=== PATIENT | male | born 1960 | race Caucasian/White ===

== ENCOUNTER → 2020-03-29 07:05 | Outpatient (CLI) | payer OTHER, SELFPAY ==
[2020-03-29 08:12] LABS: Alanine Aminotransferase 26 IU/L (<50); Albumin 4.6 g/dL (3.5-5.0); Albumin Globulin Ratio 1.5 (1.0-2.8); Alkaline Phosphatase 93 U/L (38-126); Aspartate Aminotransferase 28 IU/L (17-59); BUN Creatinine Ratio 26.4 (6-22); Bilirubin Total 0.6 mg/dL (0.2-1.3); Blood Urea Nitrogen 24 mg/dL (9-20); Calcium 9.1 mg/dL (8.4-10.2); Carbon Dioxide 29 mmol/L (22-32); Chloride 103 mmol/L (98-107); Cholesterol 182 mg/dL (140-199); Estimated Glomerular Filt Rate > 60.0 mL/min (>60); Globulin 3.1 g/dL (1.7-4.1); Glucose 102 mg/dL (70-100); HDL Cholesterol 61 mg/dL (40-60); HEMOLYSIS < 15 (0-50); LDL Cholesterol Calculated 103 mg/dL (<100); Potassium 4.6 mmol/L (3.4-5.1); Sodium 139 mmol/L (137-145); Total Protein 7.7 g/dL (6.3-8.2); Triglycerides 88 mg/dL (35-150)
[2020-03-29 08:20] LABS: Hemoglobin A1C% w Est Avg Glu 5.5 % (4.0-6.0)
== END ==
PROVIDERS: Family Provider Family Medicine; PCP Family Medicine; Referring Provider Family Medicine; Visit Provider Family Medicine
DX: Z00.00 Encounter for general adult medical examination without abnormal findings (principal)
CPT/HCPCS: 36415; 80053; 80061; 83036

== ENCOUNTER → 2020-09-12 08:10 | Outpatient (CLI) | payer OTHER, SELFPAY ==
[2020-09-12] MEDS: COVID-19 VACC #1, MRNA(MOD) 100 MCG/0.5 ML VIAL IM (08:19)
== END ==
PROVIDERS: Family Provider Family Medicine; PCP Family Medicine; Visit Provider Internal Medicine
DX: Z23 Encounter for immunization (principal)
CPT/HCPCS: 0011A; 91301

== ENCOUNTER → 2020-10-11 07:31 | Outpatient (CLI) | payer OTHER, SELFPAY ==
[2020-10-11] MEDS: COVID-19 VACC #2, MRNA(MOD) 100 MCG/0.5 ML VIAL IM (07:42)
== END ==
PROVIDERS: Family Provider Family Medicine; PCP Family Medicine; Visit Provider Internal Medicine
DX: Z23 Encounter for immunization (principal)
CPT/HCPCS: 0012A; 91301

== ENCOUNTER → 2020-10-23 16:59 | Outpatient (CLI) | payer OTHER, SELFPAY ==
--- NOTE | 2020-10-23 17:07 | DI.RAD.S_ITS ---
PROCEDURE: XR FOOT LT MIN 3V INDICATIONS: left foot pain TECHNIQUE: 3 views of the foot were acquired. COMPARISON: None. FINDINGS: Bones: No acute fracture identified. 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 Soft tissues: No tibiotalar joint effusion. Achilles tendon appears normal. IMPRESSION: Left foot joint degeneration as above. If the patient's pain or other symptoms persist, consider further evaluation with MRI Dictated by: Hai Torres M.D. on 10/24/2020 at 10:05 Approved by: Hai Torres M.D. on 10/24/2020 at 10:07
[2020-10-23 18:10] LABS: Add Manual Diff / Slide Review NO; Basophils Absolute Auto 0 /uL (0-100); Basophils Percent Auto 0.6 % (0-2); Eosinophils Absolute Auto 100 /uL (0-450); Eosinophils Percent Auto 1.8 % (2-4); Hematocrit 46.5 % (41-53); Hemoglobin 15.8 g/dL (13.5-17.5); Lymphocytes Absolute Auto 2400 /uL (1100-4500); Lymphocytes Percent Auto 29.8 % (25-40); Mean Corpuscular HGB Conc 34.1 % (30-36); Mean Corpuscular Hemoglobin 30.5 PG (26-34); Mean Corpuscular Volume 89.5 fL (80-100); Monocytes Absolute Auto 700 /uL (0-900); Monocytes Percent Auto 8.4 % (3-14); Neutrophils Absolute Auto 4900 /uL (1500-7000); Neutrophils Percent Auto 59.4 % (50-75); Platelet Count 253 X10^3/uL (150-400); Red Blood Cell Count 5.19 X10^6/uL (4.5-5.9); Red Cell Distribution Width 13.1 % (11.6-14.8); White Blood Cell Count 8.2 X10^3/uL (4.5-11.0)
[2020-10-23 18:37] LABS: Alanine Aminotransferase 25 IU/L (<50); Albumin 4.2 g/dL (3.5-5.0); Albumin Globulin Ratio 1.4 (1.0-2.8); Alkaline Phosphatase 83 U/L (38-126); Aspartate Aminotransferase 30 IU/L (17-59); Bilirubin Total 0.4 mg/dL (0.2-1.3); Blood Urea Nitrogen 19 mg/dL (9-20); Calcium 9.2 mg/dL (8.4-10.2); Carbon Dioxide 30 mmol/L (22-32); Chloride 103 mmol/L (98-107); Estimated Glomerular Filt Rate > 60.0 mL/min (>60); Glucose 94 mg/dL (70-100); HEMOLYSIS < 15 (0-50); Potassium 4.5 mmol/L (3.4-5.1); Sodium 140 mmol/L (137-145); Total Protein 7.2 g/dL (6.3-8.2)
== END ==
PROVIDERS: Family Provider Family Medicine; PCP Family Medicine; Referring Provider Registered Nurse; Visit Provider Registered Nurse
DX: M79.672 Pain in left foot (principal); R04.0 Epistaxis; M19.072 Primary osteoarthritis, left ankle and foot
CPT/HCPCS: 36415; 73630; 80053; 85025

== ENCOUNTER → 2020-11-20 14:48 | Outpatient (CLI) | payer OTHER, SELFPAY ==
--- NOTE | 2020-11-20 14:51 | DI.RAD.S_ITS ---
PROCEDURE: XR KNEE RT 3V INDICATIONS: evaluate and treat TECHNIQUE: 3 views of the knee were acquired. COMPARISON: [facility], , KNEE 3V LEFT, 06/29/2014, 11:15. FINDINGS: Bones: No acute fracture. Scattered degenerative subchondral sclerosis and spurring. Mild narrowing of the medial and lateral joint spaces. Soft tissues: There is joint effusion. IMPRESSION: Joint effusion. If the patient's pain or other symptoms persist, consider further evaluation with MRI Mild osteoarthritis Dictated by: Hai Torres M.D. on 11/20/2020 at 16:25 Approved by: Hai Torres M.D. on 11/20/2020 at 16:26
== END ==
PROVIDERS: Family Provider Family Medicine; PCP Family Medicine; Referring Provider Family Medicine; Visit Provider Family Medicine
DX: Z00.01 Encounter for general adult medical examination with abnormal findings (principal); M25.561 Pain in right knee; M25.462 Effusion, left knee; M17.11 Unilateral primary osteoarthritis, right knee
CPT/HCPCS: 73562

== ENCOUNTER → 2020-12-11 11:31 | Outpatient (CLI) | payer OTHER, SELFPAY ==
--- NOTE | 2020-12-11 11:32 | DI.MRI.S_ITS ---
PROCEDURE: MRFOOT LT WO CON INDICATIONS: left foot and ankle pain TECHNIQUE: Noncontrast sagittal T1 spin echo and T2 fast spin echo with fat saturation, long-axis T1 spin echo and T2 fast spin echo with fat saturation, short-axis T1 spin echo and T2 fast spin echo with fat saturation through the forefoot. COMPARISON: [facility], CR, XR FOOT LT MIN 3V, 10/23/2020, 17:21. FINDINGS: Image quality: Excellent. Bones and joints: There is marrow edema involving 2nd and 3rd metatarsal shafts and bases as well as edema involving adjacent lateral cuneiform. Subtle linear hypointense signal within 2nd and 3rd metatarsal shaft in the area of edema is noted. Mild edema involving proximal shaft of 5th metatarsal bone is also seen without definite fracture line. Osteoarthritic changes are noted involving 1st MTP joint and 1st through 5th interphalangeal joints. No suspicious intraosseous lesion. Soft tissues: The visualized plantar foot muscles demonstrate normal signal and bulk. Visualized flexor and extensor tendons appear intact, without tenosynovitis. The distal insertions of the peroneus brevis and longus tendons appear intact. The principal Lisfranc ligament appears intact. No soft tissue ganglion cysts or bursal fluid collections. Sagittal images demonstrate no evidence for plantar plate tears. IMPRESSION: 1. Finding is suspicious for subtle incomplete stress fractures versus stress reaction involving 2nd and 3rd metatarsal shafts and bases as well as proximal shaft of 5th metatarsal bone as above. No displaced fracture is identified. 2. Forefoot and midfoot tendons and ligaments are grossly intact. 3. Osteoarthritic changes in forefoot joints as above. Dictated by: Ruel Ford M.D. on 12/11/2020 at 12:51 Approved by: Ruel Ford M.D. on 12/11/2020 at 13:03
== END ==
PROVIDERS: Family Provider Family Medicine; PCP Family Medicine; Referring Provider Family Medicine; Visit Provider Family Medicine
DX: M79.672 Pain in left foot (principal); M25.572 Pain in left ankle and joints of left foot; G89.29 Other chronic pain
CPT/HCPCS: 73718

== ENCOUNTER → 2022-04-15 06:57 | Outpatient (CLI) | payer OTHER, SELFPAY ==
[2022-04-15 09:20] LABS: Add Manual Diff / Slide Review NO; Basophils Absolute Auto 0 /uL (0-100); Basophils Percent Auto 0.5 % (0-2); Eosinophils Absolute Auto 100 /uL (0-450); Eosinophils Percent Auto 0.8 % (2-4); Hematocrit 47.2 % (41-53); Lymphocytes Absolute Auto 1800 /uL (1100-4500); Lymphocytes Percent Auto 24.3 % (25-40); Mean Corpuscular HGB Conc 33.8 % (30-36); Mean Corpuscular Hemoglobin 30.3 PG (26-34); Mean Corpuscular Volume 89.5 fL (80-100); Monocytes Absolute Auto 600 /uL (0-900); Monocytes Percent Auto 8.1 % (3-14); Neutrophils Absolute Auto 5000 /uL (1500-7000); Neutrophils Percent Auto 66.3 % (50-75); Platelet Count 259 X10^3/uL (150-400); Red Blood Cell Count 5.27 X10^6/uL (4.5-5.9); Red Cell Distribution Width 13.4 % (11.6-14.8); White Blood Cell Count 7.5 X10^3/uL (4.5-11.0)
[2022-04-15 09:29] LABS: Alanine Aminotransferase 33 IU/L (<50); Albumin 4.2 g/dL (3.5-5.0); Albumin Globulin Ratio 1.6 (1.0-2.8); Alkaline Phosphatase 86 U/L (38-126); Aspartate Aminotransferase 26 IU/L (17-59); BUN Creatinine Ratio 15.9 (6-22); Blood Urea Nitrogen 14 mg/dL (9-20); Calcium 8.8 mg/dL (8.4-10.2); Carbon Dioxide 27 mmol/L (22-32); Chloride 103 mmol/L (98-107); Cholesterol 178 mg/dL (140-199); Estimated Glomerular Filt Rate > 60 mL/min (>60); Globulin 2.7 g/dL (1.7-4.1); Glucose 93 mg/dL (80-110); HDL Cholesterol 60 mg/dL (40-60); HEMOLYSIS < 15 (0-50); LDL Cholesterol Calculated 92 mg/dL (<100); Sodium 138 mmol/L (137-145); Total Protein 6.9 g/dL (6.3-8.2); Triglycerides 132 mg/dL (35-150)
[2022-04-15 09:58] LABS: TSH w/ Reflex to FT4 1.66 uIU/mL (0.47-4.68)
[2022-04-15 10:45] LABS: Creatinine Urine Random 149.6 mg/dL
[2022-04-15 10:50] LABS: Microalbumi Creatinin Ratio Ur 7.3 ug/mg CR (<30); Microalbumin Urine Random 1.1 mg/dL (0-1.6)
== END ==
PROVIDERS: Family Provider Family Medicine; PCP Family Medicine; Referring Provider Family Medicine; Visit Provider Family Medicine
DX: E78.5 Hyperlipidemia, unspecified (principal); L30.9 Dermatitis, unspecified; M79.672 Pain in left foot; R03.0 Elevated blood-pressure reading, without diagnosis of hypertension
CPT/HCPCS: 36415; 80053; 80061; 82043; 82570; 84443; 85025

== ENCOUNTER → 2022-04-24 08:02 | Outpatient (CLI) | payer OTHER, SELFPAY ==
[2022-04-24 08:52] LABS: Influenza A - CEPHEID Flu A NEGATIVE (NEGATIVE); Influenza B - CEPHEID Flu B NEGATIVE (NEGATIVE); Respiratory Syncytial Virus Negative (Negative)
[2022-04-24 09:31] LABS: COVID-19 CEPHEID 4-PLEX PCR Negative (Negative)
== END ==
PROVIDERS: Family Provider Family Medicine; PCP Family Medicine; Visit Provider Nurse Practitioner Family
DX: R05.9 Cough, unspecified (principal)
CPT/HCPCS: 0241U

== ENCOUNTER → 2022-08-06 09:58 | Outpatient (CLI) | payer OTHER, SELFPAY | PROVIDERS: Family Provider Family Medicine; PCP Family Medicine; Visit Provider Physician Assistant | DX: R10.9 Unspecified abdominal pain (principal) | CPT/HCPCS: 87086 ==

== ENCOUNTER 2022-08-06 10:35 | Emergency (ER) | payer OTHER, SELFPAY ==
[2022-08-06 11:03] VITALS: BP 180/96; PULSE 61; RESP 16; TEMP 36.8; O2SAT 99; BMI 32.8
[2022-08-06 12:05] LABS: Add Manual Diff / Slide Review NO; Basophils Absolute Auto 100 /uL (0-100); Basophils Percent Auto 0.4 % (0-2); Eosinophils Absolute Auto 0 /uL (0-450); Eosinophils Percent Auto 0.3 % (2-4); Hematocrit 47.6 % (41-53); Hemoglobin 15.8 g/dL (13.5-17.5); Lymphocytes Absolute Auto 1600 /uL (1100-4500); Mean Corpuscular HGB Conc 33.3 % (30-36); Mean Corpuscular Hemoglobin 29.4 PG (26-34); Mean Corpuscular Volume 88.4 fL (80-100); Monocytes Absolute Auto 800 /uL (0-900); Monocytes Percent Auto 5.9 % (3-14); Neutrophils Absolute Auto 10900 /uL (1500-7000); Neutrophils Percent Auto 81.4 % (50-75); Platelet Count 317 X10^3/uL (150-400); Red Blood Cell Count 5.39 X10^6/uL (4.5-5.9); Red Cell Distribution Width 13.7 % (11.6-14.8); White Blood Cell Count 13.4 X10^3/uL (4.5-11.0)
[2022-08-06 12:11] LABS: Alanine Aminotransferase 29 IU/L (<50); Albumin 4.6 g/dL (3.5-5.0); Albumin Globulin Ratio 1.4 (1.0-2.8); Alkaline Phosphatase 122 U/L (38-126); Aspartate Aminotransferase 28 IU/L (17-59); Bilirubin Total 0.5 mg/dL (0.2-1.3); Blood Urea Nitrogen 13 mg/dL (9-20); Carbon Dioxide 32 mmol/L (22-32); Chloride 101 mmol/L (98-107); Estimated Glomerular Filt Rate > 60 mL/min (>60); Globulin 3.4 g/dL (1.7-4.1); Glucose 99 mg/dL (80-110); HEMOLYSIS 26 (0-50); Lipase 29 U/L (23-300); Potassium 4.2 mmol/L (3.4-5.1); Sodium 141 mmol/L (137-145)
--- NOTE | 2022-08-06 13:19 | DI.CT.S_ITS ---
PROCEDURE: CT ABDOMEN PELVIS W CON INDICATIONS: L flank pain TECHNIQUE: After the administration of intravenous contrast, axial sections acquired from the lung bases to the pubic symphysis. Coronal and sagittal reformats were performed. For radiation dose reduction, the following was used: automated exposure control, adjustment of mA and/or kV according to patient size. COMPARISON: None. FINDINGS: Image quality: Excellent. Lung bases: Unremarkable. Heart: No significant findings. ABDOMEN: Liver: Unremarkable. Gallbladder: Unremarkable. Biliary ducts: Unremarkable. Pancreas: Unremarkable. Spleen: Unremarkable. Adrenal Glands: Unremarkable. Kidneys and Ureters: Obstructing 1 centimeter stone (06/04/2007 Hounsfield unit) in the left UPJ, resulting in moderate hydronephrosis and delayed nephrogram. Additional punctate non-obstructing stone within the inferior calyx. Stomach and Bowel: Stomach, small bowel loops, and colon are unremarkable. Peritoneum: No abnormal intraperitoneal fluid. No free air. Central mesenteric fat stranding, presumably benign in the absence of adenopathy. Ventral Wall: No hernias. Abdominal Nodes: No retroperitoneal or mesenteric adenopathy by size criteria. Vessels: Aorta and inferior vena cava are normal in size. PELVIS: Pelvic Organs: Masslike enhancement of the right medial peripheral zone the prostate midgland (). Bladder: Unremarkable. Pelvic Nodes: No enlarged lymph nodes. Miscellaneous: No hernias are seen. Bones: Unremarkable. IMPRESSION: 1. Obstructing 1 centimeter stone (06/04/2007 Hounsfield unit) in the left UPJ, resulting in moderate hydronephrosis and delayed nephrogram. 2. Masslike enhancement of the right peripheral zone of the prostate. Findings can indicate prostatitis or malignancy. Correlate with PSA. If elevated, consider outpatient prostate MRI. Dictated by: Manan Dixon M.D. on 08/06/2022 at 14:27 Approved by: Manan Dixon M.D. on 08/06/2022 at 14:31
--- NOTE | 2022-08-06 13:21 | ED_ITS ---
HPI - Male Genitourinary <Ermelinda Marquez PA-C - Last Filed: 08/06/22 16:59> General Chief complaint: Urogenital-Male Stated complaint: sent by [facility] suspected kidney stone on LT side T-5 Time Seen by Provider: 08/06/22 13:08 Source: patient Mode of arrival: Ambulatory History of Present Illness HPI Narrative: 62-year-old male with no reported past medical history presents to the ED with 6 days of left-sided flank pain that is now wrapping around to the front. Patient states that the pain started 5 days ago, becoming severe today. Patient states that the pain comes in waves, he feels nauseous when the pain comes on. Denies vomiting, fever, chills. Patient states that the pain started on the left flank and is now wrapping around to the left front abdomen. Patient denies chest pain, shortness of breath, dysuria, lightheadedness, dizziness, syncope. Patient denies a history of nephrolithiasis, frequent UTIs. Patient states that he had a bad bout of gastroenteritis last week for 3 days, following which his flank pain started. Patient suspects he is very dehydrated. Patient was seen at the walk-in clinic this morning, sent to the ED for further evaluation. Related Data Previous Rx's Medication Instructions Recorded triamcinolone acetonide 0.5 % 1 applic topical BID #15 grams 11/20/20 topical cream albuterol sulfate 90 mcg/actuation 2 puff inhalation Q6H PRN 05/29/22 aerosol inhaler (Proventil HFA) shortness of breath or wheezing #8.5 grams ondansetron 4 mg disintegrating 4 mg PO Q8H PRN nausea and 08/06/22 tablet vomiting #14 tabs tamsulosin 0.4 mg capsule 0.4 mg PO BEDTIME #30 caps 08/06/22 hydrocodone 5 mg-acetaminophen 325 1 tab PO BID PRN pain #28 tabs 08/12/22 mg tablet Allergies Allergy/AdvReac Type Severity Reaction Status Date / Time No Known Drug Allergies Allergy Verified 08/08/22 14:36 Review of Systems <Ermelinda Marquez PA-C - Last Filed: 08/06/22 16:59> Review of Systems ROS Unobtainable: All systems reviewed & are unremarkable except as noted in HPI and below Constitutional Constitutional: Denies chills, Denies fatigue, Denies fever(s), Denies frequent falls, Denies lethargy and Denies weakness Eyes Eyes: Denies change in vision, Denies eye discharge, Denies irritation and Denies loss of vision ENT Ears, Nose, Mouth, and Throat: Denies change in voice, Denies dizziness, Denies neck pain, Denies sore throat and Denies throat swelling Cardiovascular Cardiovascular: Denies chest pain, Denies irregular heart rhythm, Denies lightheadedness, Denies palpitations, Denies dyspnea, Denies dyspnea on exertion and Denies orthopnea Respiratory Respiratory: Denies cough, Denies dyspnea, Denies dyspnea on exertion and Denies wheezing Gastrointestinal Gastrointestinal: Reports abdominal pain, Denies change in bowel habits, Denies diarrhea, Reports nausea and Denies vomiting Comments: L flank pain Genitourinary Genitourinary: Denies hematuria, Denies flank pain, Denies urinary incontinence and Denies urinary urgency Musculoskeletal Musculoskeletal: Denies back pain, Denies muscle weakness, Denies neck pain, Denies numbness and Denies tingling Integumentary/Breasts Skin/Breast: Denies pruritus, Denies erythema, Denies rash and Denies wounds Neurologic Neurologic: Denies behavioral changes, Denies confusion, Denies dizziness, Denies frequent falls, Denies loss of vision, Denies numbness, Denies tingling and Denies weakness Psychiatric Psychiatric: Denies anxiety, Denies behavioral changes, Denies confusion, Denies depression, Denies homicidal ideation and Denies suicidal ideation Endocrine Endocrine: Denies fatigue, Denies flushing and Denies palpitations Hematologic/Lymphatic Hematologic/Lymphatic: Denies easy bruising Allergic/Immunologic Allergic/Immunologic: Denies urticaria, Denies throat swelling and Denies wheezing Patient History <Ermelinda Marquez PA-C - Last Filed: 08/06/22 16:59> Medical History (Updated 08/08/22 @ 15:00 by LOLY Powers) Colon polyps Eczema Encounter for well adult exam with abnormal findings Hydronephrosis of left kidney Hyperlipidemia Inflamed sebaceous cyst Left foot pain Nosebleed Sebaceous cyst Surgical History Status post hernia repair Family History Grandfather Heart disease Grandfather Heart disease Grandmother Stroke Social History Smoking Status: Never smoker Smoking Status: Never smoker alcohol intake frequency: holidays/special occasions only Substance Use Type: does not use Exam <Ermelinda Marquez PA-C - Last Filed: 08/06/22 16:59> Narrative Exam Narrative: Const General:?cooperative, healthy appearing and comfortable [facility] Head:?normal to inspection Ears:?hearing grossly normal bilaterally Nose:?external nose normal Face and sinus:?normal facial exam and sinuses nontender Mouth:?oral mucosae normal Throat:?posterior oropharynx normal Eyes General:?appearance normal, both eyes and all related structures Neck Neck:?normal visual inspection and no lymphadenopathy noted Resp Effort & Inspection:?normal respiratory effort Auscultation:?clear to auscultation bilaterally Cardio Rate:?regular rate Rhythm:?regular rhythm GI Abdomen is soft, nondistended, nontender to palpation. There is no CVA tenderness. Neuro General:?patient alert, patient awake and patient oriented x3 Initial Vital Signs Initial Vital Signs: Vital Signs Temperature 98.2 F 08/06/22 11:03 Pulse Rate 61 08/06/22 11:03 Respiratory Rate 16 08/06/22 11:03 Blood Pressure 180/96 H 08/06/22 11:03 Pulse Oximetry 99 08/06/22 11:03 Oxygen Delivery Method Room Air 08/06/22 11:03 <Gopi Jordan MD - Last Filed: 08/13/22 08:11> Initial Vital Signs Initial Vital Signs: Vital Signs Temperature 98.2 F 08/06/22 11:03 Pulse Rate 61 08/06/22 11:03 Respiratory Rate 16 08/06/22 11:03 Blood Pressure 180/96 H 08/06/22 11:03 Pulse Oximetry 99 08/06/22 11:03 Oxygen Delivery Method Room Air 08/06/22 11:03 Course <Ermelinda Marquez PA-C - Last Filed: 08/06/22 16:59> Orders Ordered: Discontinued Medications Sodium Chloride (Normal Saline 0.9%) 1,000 mls @ 1,000 mls/hr IV BOLUS ONE Stop: 08/06/22 14:19 Last Infusion: 08/06/22 14:43 Dose: 0 mls/hr Documented By: Admin: 08/06/22 13:30 Dose: 1,000 mls/hr Documented By: YASIR Ketorolac Tromethamine (Ketorolac 30 Mg/Ml Vial) 15 mg IV NOW ONE Stop: 08/06/22 13:21 Last Admin: 08/06/22 13:30 Dose: 15 mg Documented By: YASIR Morphine Sulfate (Morphine 4 Mg/Ml Inj) 4 mg IV NOW ONE Stop: 08/06/22 16:30 Last Admin: 08/06/22 17:07 Dose: 4 mg Documented By: YASIR Ondansetron HCl (Ondansetron 4 Mg/2 Ml Inj) 4 mg IV NOW PRN PRN Reason: Nausea And Vomiting Ondansetron HCl (Ondansetron 4 Mg/2 Ml Inj) 4 mg IV NOW ONE Stop: 08/06/22 13:21 Last Admin: 08/06/22 13:30 Dose: 4 mg Documented By: YASIR Vital Signs Vital signs: Vital Signs - 8 hr 08/06/22 11:03 Temperature 98.2 F Pulse Rate 61 Respiratory Rate 16 Blood Pressure 180/96 H Pulse Oximetry 99 Oxygen Delivery Method Room Air <Gopi Jordan MD - Last Filed: 08/13/22 08:11> Orders Ordered: Discontinued Medications Sodium Chloride (Normal Saline 0.9%) 1,000 mls @ 1,000 mls/hr IV BOLUS ONE Stop: 08/06/22 14:19 Last Infusion: 08/06/22 14:43 Dose: 0 mls/hr Documented By: Admin: 08/06/22 13:30 Dose: 1,000 mls/hr Documented By: YASIR Ketorolac Tromethamine (Ketorolac 30 Mg/Ml Vial) 15 mg IV NOW ONE Stop: 08/06/22 13:21 Last Admin: 08/06/22 13:30 Dose: 15 mg Documented By: YASIR Morphine Sulfate (Morphine 4 Mg/Ml Inj) 4 mg IV NOW ONE Stop: 08/06/22 16:30 Last Admin: 08/06/22 17:07 Dose: 4 mg Documented By: YASIR Ondansetron HCl (Ondansetron 4 Mg/2 Ml Inj) 4 mg IV NOW PRN PRN Reason: Nausea And Vomiting Ondansetron HCl (Ondansetron 4 Mg/2 Ml Inj) 4 mg IV NOW ONE Stop: 08/06/22 13:21 Last Admin: 08/06/22 13:30 Dose: 4 mg Documented By: YASIR Vital Signs Vital signs: Vital Signs - 8 hr 08/06/22 11:03 Temperature 98.2 F Pulse Rate 61 Respiratory Rate 16 Blood Pressure 180/96 H Pulse Oximetry 99 Oxygen Delivery Method Room Air MDM - Male Genitourinary <Ermelinda aMrquez PA-C - Last Filed: 08/06/22 16:59> Lab Data 08/06/22 11:49 08/06/22 11:49 Labs: Lab Results 08/06/22 08/06/22 08/06/22 Range/Units 09:58 11:49 11:49 WBC 13.4 H (4.5-11.0) X10^3/uL RBC 5.39 (4.5-5.9) X10^6/uL Hgb 15.8 (13.5-17.5) g/dL Hct 47.6 (41-53) % MCV 88.4 (80-100) fL MCH 29.4 (26-34) PG MCHC 33.3 (30-36) % RDW 13.7 (11.6-14.8) % Plt Count 317 (150-400) X10^3/uL Neut % (Auto) 81.4 H (50-75) % Lymph % (Auto) 12.0 L (25-40) % Howard % (Auto) 5.9 (3-14) % Eos % (Auto) 0.3 L (2-4) % Baso % (Auto) 0.4 (0-2) % Neut # (Auto) 69913 H (4824-9284) /uL Lymph # (Auto) 1600 (7460-8158) /uL Howard # (Auto) 800 (0-900) /uL Eos # (Auto) 0 (0-450) /uL Baso # (Auto) 100 (0-100) /uL Sodium 141 (137-145) mmol/L Potassium 4.2 (3.4-5.1) mmol/L Chloride 101 (98-107) mmol/L Carbon Dioxide 32 (22-32) mmol/L BUN 13 (9-20) mg/dL Creatinine 0.81 (0.66-1.25) mg/dL Estimated GFR > 60 (>60) mL/min BUN/Creatinine Ratio 16.0 (6-22) Glucose 99 (80-110) mg/dL Calcium 9.0 (8.4-10.2) mg/dL Total Bilirubin 0.5 (0.2-1.3) mg/dL AST 28 (17-59) IU/L ALT 29 (<50) IU/L Alkaline Phosphatase 122 (38-126) U/L Total Protein 8.0 (6.3-8.2) g/dL Albumin 4.6 (3.5-5.0) g/dL Globulin 3.4 (1.7-4.1) g/dL Albumin/Globulin Ratio 1.4 (1.0-2.8) Lipase 29 (23-300) U/L Urine RBC 1-5/hpf (0-5/HPF) Urine WBC 1-5/hpf (0-5/HPF) Amorphous Sediment 1+ Urine Bacteria None seen (None) MDM Narrative Medical decision making narrative: 62-year-old male with no reported past medical history presents to the ED with 6 days of left-sided flank pain that is now wrapping around to the front. Concern for nephrolithiasis versus UTI versus pyelonephritis versus musculoskeletal sprain/strain versus other intra abdominal pathology versus other. Urine dip was obtained at the walk-in clinic, shows hematuria but no other acute findings. Urine was sent for culture. Will obtain labs, CT abdomen pelvis. Will treat symptoms with IV fluids, Zofran, Toradol. Will reassess. Patient's symptom improved with ketorolac, IV fluids, Zofran. UA was negative for UTI. Labs within normal limits. CT abdomen pelvis shows a 1 cm obstructing stone resulting in moderate hydronephrosis. There is also a masslike enhancement of the right peripheral zone of the prostate that could indicate prostatitis or malignancy. Discussed findings with patient. Patient agrees to follow-up with urology as soon as possible. Patient given prescriptions for tramadol, Zofran, tamsulosin. ED return precautions were discussed with patient. Patient verbalized understanding. Medical records reviewed: Yes <Gopi Jordan MD - Last Filed: 08/13/22 08:11> Lab Data Labs: Lab Results 08/06/22 08/06/22 08/06/22 Range/Units 09:58 11:49 11:49 WBC 13.4 H (4.5-11.0) X10^3/uL RBC 5.39 (4.5-5.9) X10^6/uL Hgb 15.8 (13.5-17.5) g/dL Hct 47.6 (41-53) % MCV 88.4 (80-100) fL MCH 29.4 (26-34) PG MCHC 33.3 (30-36) % RDW 13.7 (11.6-14.8) % Plt Count 317 (150-400) X10^3/uL Neut % (Auto) 81.4 H (50-75) % Lymph % (Auto) 12.0 L (25-40) % Howard % (Auto) 5.9 (3-14) % Eos % (Auto) 0.3 L (2-4) % Baso % (Auto) 0.4 (0-2) % Neut # (Auto) 68878 H (6385-8207) /uL Lymph # (Auto) 1600 (9823-3172) /uL Howard # (Auto) 800 (0-900) /uL Eos # (Auto) 0 (0-450) /uL Baso # (Auto) 100 (0-100) /uL Sodium 141 (137-145) mmol/L Potassium 4.2 (3.4-5.1) mmol/L Chloride 101 (98-107) mmol/L Carbon Dioxide 32 (22-32) mmol/L BUN 13 (9-20) mg/dL Creatinine 0.81 (0.66-1.25) mg/dL Estimated GFR > 60 (>60) mL/min BUN/Creatinine Ratio 16.0 (6-22) Glucose 99 (80-110) mg/dL Calcium 9.0 (8.4-10.2) mg/dL Total Bilirubin 0.5 (0.2-1.3) mg/dL AST 28 (17-59) IU/L ALT 29 (<50) IU/L Alkaline Phosphatase 122 (38-126) U/L Total Protein 8.0 (6.3-8.2) g/dL Albumin 4.6 (3.5-5.0) g/dL Globulin 3.4 (1.7-4.1) g/dL Albumin/Globulin Ratio 1.4 (1.0-2.8) Lipase 29 (23-300) U/L Urine RBC 1-5/hpf (0-5/HPF) Urine WBC 1-5/hpf (0-5/HPF) Amorphous Sediment 1+ Urine Bacteria None seen (None) Discharge Plan Departure Patient Disposition: Home Clinical Impression: Kidney stone Instructions: DI for Kidney Stones Activity Restrictions/Additional Instructions: You were evaluated in the ED today for left-sided flank and abdominal pain. Your labs and urine were normal. Your CT scan did show a 1 cm kidney stone that is causing your symptoms. You are being prescribed tramadol, Zofran, tamsulosin for symptoms. Please follow-up with [facility] at [phone] for further evaluation and treatment. In the meanwhile, if your symptoms worsen, you experience fever, chills, you have worsening pain and persistent vomiting, please return to the ED for further evaluation. Prescriptions: New tamsulosin 0.4 mg capsule 0.4 mg PO BEDTIME Qty: 30 0RF ondansetron 4 mg tablet,disintegrating 4 mg PO Q8H PRN (Reason: nausea and vomiting) Qty: 14 0RF No Action albuterol sulfate [Proventil HFA] 90 mcg/actuation HFA aerosol inhaler 2 puff inhalation Q6H PRN (Reason: shortness of breath or wheezing) Qty: 8.5 0RF hydrocodone-acetaminophen 5-325 mg tablet 1 tab PO BID PRN (Reason: pain) Qty: 28 0RF triamcinolone acetonide 0.5 % cream 1 applic TOP BID Qty: 15 3RF Rx Instructions: Use for up to two weeks at a time. Referrals: Melo Fox MD [Primary Care Provider] - Stand Alone Forms: Patient Portal/API <Gopi Jordan MD - Last Filed: 08/13/22 08:11> Cosign ED Attending Cosignature Attestation: I was immediately available in the department for consultation. ?This documentation has been reviewed and I agree with assessment and plan. Supervised by Gopi Jordan MD
[2022-08-06] MEDS: KETOROLAC 30 MG/ML VIAL 15 MG IV (13:30)
[2022-08-06] MEDS: SODIUM CHLORIDE 0.9% 1,000 ML 1000 ML IV (13:30)
[2022-08-06] MEDS: ONDANSETRON 4 MG/2 ML INJ IV (13:30)
[2022-08-06 15:20] LABS: Amorphous Sediment Urine 1+; Bacteria Urine None Seen; RBC Urine 1-5/HPF (0-5/HPF); WBC Urine 1-5/HPF (0-5/HPF)
[2022-08-06] MEDS: MORPHINE 4 MG/ML INJ IV (17:07)
[2022-08-06 17:22] VITALS: BP 185/91; PULSE 62; RESP 18; O2SAT 98
== END 2022-08-06 17:25 | disposition home or self-care (01) ==
PROVIDERS: Emergency Medicine; Emergency Provider Student in an Organized Health Care Education/Training Program; Family Provider Family Medicine; PCP Family Medicine
DX: N20.1 Calculus of ureter (principal); R10.9 Unspecified abdominal pain
CPT/HCPCS: 36415; 74177; 80053; 81015; 83690; 85025; 87086; 96361; 96374; 96375; 99284; J1885; J2270; J2405; Q9967

== ENCOUNTER → 2022-08-08 15:04 | Outpatient (CLI) | payer OTHER, SELFPAY ==
[2022-08-08 15:41] LABS: HEMOLYSIS < 15 (0-50)
[2022-08-08 15:48] LABS: BUN Creatinine Ratio 11.5 (6-22); Blood Urea Nitrogen 15 mg/dL (9-20); Calcium 9.1 mg/dL (8.4-10.2); Carbon Dioxide 28 mmol/L (22-32); Chloride 97 mmol/L (98-107); Estimated Glomerular Filt Rate > 60 mL/min (>60); Glucose 97 mg/dL (80-110); Potassium 4.1 mmol/L (3.4-5.1); Sodium 136 mmol/L (137-145)
[2022-08-15 17:26] LABS: Prostate Specific Antigen Scrn 2.42 ng/mL (0.1-4.0)
== END ==
PROVIDERS: Family Provider Family Medicine; PCP Family Medicine; Referring Provider Nurse Practitioner Family; Visit Provider Nurse Practitioner Family
DX: N20.0 Calculus of kidney (principal); N40.0 Benign prostatic hyperplasia without lower urinary tract symptoms; R93.89 Abnormal findings on diagnostic imaging of other specified body structures
CPT/HCPCS: 36415; 80048; G0103

== ENCOUNTER 2022-08-23 07:58 | Day surgery (SDC) | payer OTHER, SELFPAY ==
[2022-08-15 11:50] VITALS: BMI 31.9
[2022-08-23] VITALS (13 sets, daily range): BP systolic 139–192; BP diastolic 79–110; PULSE 71–88; RESP 12–20; TEMP 35.9–36.4; O2SAT 94–98; BMI 31.9
--- NOTE | 2022-08-23 | DI.RAD.S_ITS ---
PROCEDURE: XR KUB INDICATIONS: Left nephrolithiasis TECHNIQUE: One view of the abdomen acquired. COMPARISON: [facility], CT, CT ABDOMEN PELVIS W CON, 08/06/2022, 13:20. FINDINGS: Surgical changes and devices: None. Bowel: Bowel gas pattern is nonobstructive. Soft tissues: No suspicious abdominal calcifications. Visualized solid organ contours appear normal in size. There is a 1.0 cm calculus projecting slightly medial to the left renal shadow compatible with known left UPJ stone. Bones: No suspicious bony lesions. IMPRESSION: A 1.0 cm urolith noted medial to the left renal shadow compatible with previously reported obstructing left UPJ stone. Otherwise, no acute radiographic abnormalities. Dictated by: Asad Gautam M.D. on 08/23/2022 at 9:32 Approved by: Asad Gautam M.D. on 08/23/2022 at 10:05
[2022-08-23] MEDS: LACTATED RINGERS 1,000 ML 21 ML IV ×2 (08:40→10:13)
--- NOTE | 2022-08-23 08:57 | PM.PREOP ---
Pre-operative Note COVID-19 Criteria for continued procedure: Expected advancement of disease process, Possibility delay results in more complex future surgery or treatment, Continuing or worsening of significant or severe pain, Deterioration of the patient's condition or overall health, Delay expected to result in less-positive ultimate med/surg outcome and Non-surgical alternatives not available or appropriate per current SOC Interval Note History & Physical reviewed/Exam performed by Physician: Yes Changes to H&P: No
[2022-08-23] MEDS: CEFAZOLIN 2 GM/100 ML PREMIX 100 ML IV (09:25)
--- NOTE | 2022-08-23 10:00 | SUR.OPER ---
Lithotomy on ESWL bed, head on pillow, arms at sides. Legs secured in ESWL padded fins stirrups. Legs released from lithotomy after stent placement and returned to supine on ESWL table with arms at side.
--- NOTE | 2022-08-23 10:30 | PM.OP.1 ---
Operative Date/Time/Diagnoses Date of procedure: 08/23/22 Time of procedure: 10:20 Pre-op diagnosis: 1. Left ureteropelvic junction calculus. 2. Left renal colic Post-op diagnosis: same Procedure & Clinicians Procedure: 1. Cystoscopy/left ureteral stone manipulation without removal. 2. Cystoscopy/placement left ureteral stent (7 [place] by 22-32 cm). 3. Left extracorporeal shockwave lithotripsy (maximal power level 7.0 x 1500 shocks). Same procedure as scheduled: Yes Indications: 1. Urethra-normal caliber without annular stricture or lesion. 2. External sphincter-coapted with normal overlying urothelium. 3. Prostate 4+ cm length with [id number] lateral lobe hyperplasia and elevated median bar. 4. Bladder 1+ trabeculation. Normal ureteral orifices bilaterally. No evidence of stone, neoplasm, or diverticulum. 5. Index calculus was unchanged in position compared to preoperative imaging. With positioning of the guidewire and advancement of the stent the stone was repositioned retrograde within the dilated left renal pelvis. Surgeon: Maki Quiroz Click Yes if Unassisted: Yes Anesthesia Type: General Operative Notes Closure Type: not applicable Specimen(s): none sent Applied: other (Seven [place] by 22-32 cm multi length stent.) Estimated Blood Loss (mL): 0 Blood products transfused: none Procedure in detail: The patient was positioned in supine and was administered general anesthesia. The patient was then repositioned in semi lithotomy in the lower abdomen, genitalia, and groin were then prepped and draped in sterile fashion. The 22 [place] samaniego endoscope was then passed in the lower urinary tract with the findings as described above. A 0.35 hybrid guidewire was then advanced through the working channel of the cystoscope and advanced into the left collecting system under direct and fluoroscopic guidance. A 7 [place] by 22-32 cm multi-length stent was then selected and this too was advanced under direct and fluoroscopic guidance into the left collecting system over the hybrid guidewire. In doing so the index calculus that had been positioned snugly in the left ureteropelvic junction was dislodged and repositioned retrograde within dilated left renal pelvis. NO RETRIEVAL LINE WAS LEFT ATTACHED. The bladder was then drained completely and the samaniego endoscope was removed. The patient was then repositioned in supine and the index calculus was localized in the X, Y, and Z plane. Lithotripsy was then commenced at minimal power level for 200 shocks after which a 2 minute pause was conducted. Lithotripsy was then resumed and the power level gradually increased to a maximum of 7.0. The stone and its fragments were localized as needed throughout the treatment process. At 3:00 p.m. shocks there was excellent radiographic evidence of stone comminution. The patient was then awakened, transferred to [facility], and then transferred to recovery in stable condition. Complications: none Post-operative Condition: stable Disposition: PACU Plan for aftercare: Discharge home.
[2022-08-23] MEDS: HYDRALAZINE 20 MG/ML VIAL 10 MG IV (11:03)
--- NOTE | 2022-08-23 11:15 | SUR.PHASEII ---
pt positioned on Right side head down per MD orders
--- NOTE | 2022-08-23 14:19 | SUR.PHASEII ---
Pt started on incentive spirometry prior to discharge. Pt able to get up to 2600 cc. Pt BP at preop baseline. Instructed to get in contact with Dr Fox for BP management.
== END 2022-08-23 11:46 | disposition home or self-care (01) ==
PROVIDERS: Family Provider Family Medicine; PCP Family Medicine; Referring Provider Specialist; Visit Provider Specialist
PROC: (CPT 50590; principal; 2022-08-23 09:15)
PROC: (CPT 52356; 2022-08-23 09:15)
DX: N20.1 Calculus of ureter (principal); Z46.6 Encounter for fitting and adjustment of urinary device; N40.0 Benign prostatic hyperplasia without lower urinary tract symptoms
CPT/HCPCS: 52356; 74018; J0330; J0360; J0690; J1100; J2405; J2704; J3010

== ENCOUNTER → 2022-08-29 15:54 | Outpatient (CLI) | payer OTHER, SELFPAY ==
[2022-08-29 16:21] LABS: Appearance Urine UA SL CLOUDY; Bilirubin Urine UA NEGATIVE (NEGATIVE); Color Urine UA YELLOW; Glucose Urine UA NEGATIVE (Negative); Ketones Urine UA NEGATIVE (NEGATIVE); Leukocyte Esterase Urine UA TRACE (NEGATIVE); Nitrite Urine UA NEGATIVE (Negative); Occult Blood Urine UA 3+ (Negative); Protein Urine UA NEGATIVE (Negative); Specific Gravity Urine UA 1.015 (1.000-1.035); Urobilinogen Urine UA 0.2 E.U./dL (0.2); pH Urine UA 5.5 (4.5-8.0)
[2022-08-29 16:38] LABS: Amorphous Sediment Urine 1+; Bacteria Urine Few (2-10); Culture Indicated Urine Specimen Cultured; Mucus Urine 1+ (Negative); RBC Urine 1-5/HPF (0-5/HPF); Squamous Epithelial Cell Urine 1-5 /HPF (0-5/HPF); WBC Urine 5-10/HPF (0-5/HPF)
== END ==
PROVIDERS: Family Provider Family Medicine; PCP Family Medicine; Referring Provider Specialist; Visit Provider Specialist
DX: N20.1 Calculus of ureter (principal)
CPT/HCPCS: 81001; 87086

== ENCOUNTER → 2022-09-10 08:29 | Outpatient (CLI) | payer OTHER, SELFPAY ==
--- NOTE | 2022-09-10 08:30 | DI.RAD.S_ITS ---
PROCEDURE: XR KUB INDICATIONS: ureter calculus TECHNIQUE: One view of the abdomen acquired. COMPARISON: [facility], CR, XR KUB, 08/23/2022, 8:05. FINDINGS: Surgical changes and devices: Left ureteral stent appears to be in appropriate position. Bowel: Bowel gas pattern is normal. Soft tissues: Interval fragmentation of the stone just medial and inferior to the left kidney, aggregate measurement is 1.2 x 0.9 cm. Pelvic calcifications likely phleboliths. Bones: No suspicious bony lesions. IMPRESSION: Left ureteral stent in place. Calcification medial and inferior to the left kidney, likely previously seen stone, now fragmented, measures 1.2 x 0.9 cm in aggregate. Dictated by: Joss West M.D. on 09/10/2022 at 8:46 Approved by: Joss West M.D. on 09/10/2022 at 8:48
== END ==
PROVIDERS: Family Provider Family Medicine; PCP Family Medicine; Referring Provider Specialist; Visit Provider Specialist
DX: N20.1 Calculus of ureter (principal); Z96.0 Presence of urogenital implants; Z87.442 Personal history of urinary calculi
CPT/HCPCS: 52310; 74018; 81002; 99214

== ENCOUNTER → 2022-09-23 10:24 | Outpatient (CLI) | payer OTHER, SELFPAY ==
[2022-09-27 15:08] LABS: Ca oxalate dihydrate 10 % (.); Ca oxalate monohydr 90 % (.); Size 4x4 mm (.)
== END ==
PROVIDERS: Family Provider Family Medicine; PCP Family Medicine; Visit Provider Specialist
DX: N13.30 Unspecified hydronephrosis (principal); N20.0 Calculus of kidney; N20.1 Calculus of ureter; N23 Unspecified renal colic
CPT/HCPCS: 82365

== ENCOUNTER → 2022-09-27 11:13 | Outpatient (CLI) | payer OTHER, SELFPAY ==
[2022-09-27 13:16] LABS: Appearance Urine UA CLEAR; Bilirubin Urine UA NEGATIVE (NEGATIVE); Color Urine UA YELLOW; Glucose Urine UA NEGATIVE (Negative); Ketones Urine UA NEGATIVE (NEGATIVE); Leukocyte Esterase Urine UA NEGATIVE (NEGATIVE); Nitrite Urine UA NEGATIVE (Negative); Occult Blood Urine UA NEGATIVE (Negative); Protein Urine UA NEGATIVE (Negative); Urobilinogen Urine UA 0.2 E.U./dL (0.2); pH Urine UA 6.5 (4.5-8.0)
[2022-09-27 13:47] LABS: Amorphous Sediment Urine 1+; Bacteria Urine None Seen; Culture Indicated Urine Cult Not Indicated; RBC Urine None Seen (0-5/HPF); Squamous Epithelial Cell Urine 0-1 /HPF (0-5/HPF); WBC Urine 0-1/HPF (0-5/HPF)
== END ==
PROVIDERS: Family Provider Family Medicine; PCP Family Medicine; Referring Provider Specialist; Visit Provider Specialist
DX: N20.1 Calculus of ureter (principal)
CPT/HCPCS: 81001

== ENCOUNTER → 2022-10-17 07:39 | Outpatient (CLI) | payer OTHER, SELFPAY ==
--- NOTE | 2022-10-17 07:44 | DI.RAD.S_ITS ---
PROCEDURE: XR KUB INDICATIONS: ureter calculus TECHNIQUE: One view of the abdomen acquired. COMPARISON: [facility], CT, CT ABDOMEN PELVIS W CON, 08/06/2022, 13:20. [facility], CR, XR KUB, 09/10/2022, 8:26. [facility], CR, XR KUB, 08/23/2022, 8:05. FINDINGS: Interval removal of the left ureteral stent. Similar appearance of calcification projecting over the left inferior kidney, approximately 8 mm. Nonobstructive bowel gas pattern. IMPRESSION: Interval removal of the left ureteral stent. Similar appearance of calcification projecting over the left inferior kidney, approximately 8 mm. Dictated by: Ronaldo Dennison M.D. on 10/17/2022 at 8:39 Approved by: Ronaldo Dennison M.D. on 10/17/2022 at 8:44
[2022-10-17 08:57] LABS: Uric Acid 6.5 mg/dL (3.5-8.5)
[2022-10-17 09:07] LABS: Alanine Aminotransferase 30 IU/L (<50); Albumin Globulin Ratio 1.4 (1.0-2.8); Alkaline Phosphatase 110 U/L (38-126); Aspartate Aminotransferase 26 IU/L (17-59); BUN Creatinine Ratio 22.9 (6-22); Bilirubin Total 0.9 mg/dL (0.2-1.3); Blood Urea Nitrogen 19 mg/dL (9-20); Calcium 8.9 mg/dL (8.4-10.2); Carbon Dioxide 25 mmol/L (22-32); Chloride 103 mmol/L (98-107); Estimated Glomerular Filt Rate > 60 mL/min (>60); Globulin 2.8 g/dL (1.7-4.1); Glucose 98 mg/dL (80-110); HEMOLYSIS < 15 (0-50); Potassium 3.8 mmol/L (3.4-5.1); Sodium 136 mmol/L (137-145); Total Protein 6.8 g/dL (6.3-8.2)
[2022-10-17 10:15] LABS: Creatinine Urine Random 136.4 mg/dL
[2022-10-17 10:18] LABS: Microalbumi Creatinin Ratio Ur 5.1 ug/mg CR (<30); Microalbumin Urine Random 0.7 mg/dL (0-1.6)
[2022-10-18 10:56] LABS: Parathyroid Hormone Int 54 pg/mL (15-65)
== END ==
PROVIDERS: Family Provider Family Medicine; PCP Family Medicine; Referring Provider Specialist; Visit Provider Specialist
DX: N13.30 Unspecified hydronephrosis (principal); N20.1 Calculus of ureter; E78.5 Hyperlipidemia, unspecified; I10 Essential (primary) hypertension; N20.0 Calculus of kidney
CPT/HCPCS: 74018; 80053; 82043; 82570; 83970; 84550

== ENCOUNTER 2022-11-18 11:01 | Day surgery (SDC) | payer OTHER, SELFPAY ==
[2022-11-13 13:52] VITALS: BMI 31.9
--- NOTE | 2022-11-18 | DI.RAD.S_ITS ---
PROCEDURE: XR KUB INDICATIONS: Left nephrolithiasis TECHNIQUE: One view of the abdomen acquired. COMPARISON: [facility], CT, CT ABDOMEN PELVIS W CON, 08/06/2022, 13:20. [facility], CR, XR KUB, 10/17/2022, 7:42. [facility], CR, XR KUB, 09/10/2022, 8:26. [facility], CR, XR KUB, 08/23/2022, 8:05. FINDINGS: Surgical changes and devices: None. Bowel: Bowel gas pattern is normal. Soft tissues: A 3 mm calcification is seen projecting over the left mid abdomen in the region of the inferior pole left kidney, which appears decreased in size when compared to the radiographs from 10/17/2022. No definite right abdominal calcification is seen. Visualized solid organ contours appear normal in size. Bones: No suspicious bony lesions. Bulky osteophyte formation noted at the lumbosacral junction. IMPRESSION: A 3 mm calcification projects over the left kidney. Previously seen larger renal calculus is not definitely visualized. Approved by: Ronaldo Palmer M.D. on 11/18/2022 at 13:59
[2022-11-18 11:20] VITALS: BP 146/77; PULSE 58; RESP 18; TEMP 36.4; O2SAT 99; BMI 31.9
[2022-11-18] MEDS: LACTATED RINGERS 1,000 ML 21 ML IV (11:35)
--- NOTE | 2022-11-18 12:47 | PM.PREOP ---
Pre-operative Note COVID-19 Criteria for continued procedure: Expected advancement of disease process, Possibility delay results in more complex future surgery or treatment, Deterioration of the patient's condition or overall health, Delay expected to result in less-positive ultimate med/surg outcome and Non-surgical alternatives not available or appropriate per current SOC Interval Note History & Physical reviewed/Exam performed by Physician: Yes Changes to H&P: No
--- NOTE | 2022-11-18 13:33 | SUR.OPER ---
Addendum entered by Elizabeth Reid R.N. 11/18/22 14:38: Supine on ESWL table, head on pillow, legs uncrossed, arms padded, heedls padded, foam triangle under legs provided by ESW[employer] rep. Original Note: Supine on ESWL table, head on pillow, arms secured on padded arm boards at <90 degrees abduction, legs uncrossed, safety belt at thigh, tape over blanket over lower legs.
--- NOTE | 2022-11-18 13:58 | PM.OP.1 ---
Operative Date/Time/Diagnoses Date of procedure: 11/18/22 Time of procedure: 13:45 Pre-op diagnosis: 1. Left nephrolithiasis 2. History of left renal colic Post-op diagnosis: same Procedure & Clinicians Procedure: 1. Left extracorporeal shockwave lithotripsy (maximal power level 7.5 times 1500 shocks). Same procedure as scheduled: Yes Indications: 1. Left nephrolithiasis. 2. History of left renal colic. Surgeon: Maki Quiroz Click Yes if Unassisted: Yes Anesthesia Type: General Operative Notes Findings: Index calculus unchanged in position left lobe and compared to preoperative imaging. Specimen(s): none sent Estimated Blood Loss (mL): 0 Blood products transfused: none Procedure in detail: Patient was positioned supine in the above-described calculus was localized in the X, Y, an Z plane. Treatment was then begun at minimal power level for 200 shocks. A 2 minute pause was conducted. Lithotripsy was then resumed and the power was gradually increased to a maximum 7.5. The stone and its fragments were relocalized periodically throughout the case I as needed with fluoroscopy. At 1500 shocks there was excellent evidence of stone comminution and no residual sizable fragments. The patient was then awakened, transferred to [facility], and then trip for recovery in stable condition. Complications: none Post-operative Condition: stable Disposition: PACU Plan for aftercare: Discharge home.
[2022-11-18 14:00] VITALS: BP 151/90; PULSE 58; RESP 11; TEMP 36.3; O2SAT 97
[2022-11-18 14:05] VITALS: BP 138/76; PULSE 53; RESP 12; TEMP 36.3; O2SAT 98
[2022-11-18 14:11] VITALS: BP 148/83; PULSE 52; RESP 12; O2SAT 98
[2022-11-18 14:16] VITALS: BP 150/81; PULSE 54; RESP 14; TEMP 36.4; O2SAT 98
[2022-11-18 14:21] VITALS: BP 151/79; PULSE 53; RESP 14; O2SAT 98
[2022-11-18] MEDS: FUROSEMIDE 40 MG/4 ML VIAL 20 MG IV (14:30)
== END 2022-11-18 14:33 | disposition home or self-care (01) ==
PROVIDERS: Family Provider Family Medicine; PCP Family Medicine; Referring Provider Specialist; Visit Provider Specialist
PROC: (CPT 50590; principal; 2022-11-18 12:45)
DX: N20.0 Calculus of kidney (principal)
CPT/HCPCS: 50590; 74018; J1940; J2405; J3010

== ENCOUNTER → 2023-01-01 09:59 | Outpatient (CLI) | payer OTHER, SELFPAY ==
--- NOTE | 2023-01-01 10:00 | DI.RAD.S_ITS ---
PROCEDURE: XR KUB INDICATIONS: History of Kidney stones TECHNIQUE: One view of the abdomen acquired. COMPARISON: [facility], CR, XR KUB, 11/18/2022, 11:08. [facility], CR, XR KUB, 10/17/2022, 7:42. FINDINGS: No definite renal stones identified radiographically. No pathologically dilated gas-filled loops of bowel. IMPRESSION: No definite renal stones identified radiographically. Dictated by: Ronaldo Dennison M.D. on 01/01/2023 at 18:13 Approved by: Ronaldo Dennison M.D. on 01/01/2023 at 18:15
== END ==
PROVIDERS: Family Provider Family Medicine; PCP Family Medicine; Referring Provider Specialist; Visit Provider Specialist
DX: N20.2 Calculus of kidney with calculus of ureter (principal); N23 Unspecified renal colic; Z87.442 Personal history of urinary calculi
CPT/HCPCS: 74018

== ENCOUNTER → 2023-01-02 07:56 | Outpatient (CLI) | payer OTHER, SELFPAY ==
[2023-01-08 18:47] LABS: Ca oxalate monohydr 100 % (.); Size 3x3 mm (.)
== END ==
PROVIDERS: Family Provider Family Medicine; PCP Family Medicine; Visit Provider Specialist
DX: N20.0 Calculus of kidney (principal); N40.1 Benign prostatic hyperplasia with lower urinary tract symptoms; N13.8 Other obstructive and reflux uropathy; Z87.442 Personal history of urinary calculi
CPT/HCPCS: 81002; 82365

== ENCOUNTER 2023-03-25 07:02 | Day surgery (SDC) | payer OTHER, SELFPAY ==
[2023-03-25 07:25] VITALS: BP 144/85; PULSE 67; RESP 16; TEMP 36.3; O2SAT 98; BMI 31.4
[2023-03-25] MEDS: LACTATED RINGERS 1,000 ML 150 ML IV (07:38)
--- NOTE | 2023-03-25 08:15 | PM.HP.1 ---
History of Present Illness History of Present Illness Date Patient Seen: 03/25/23 Time Patient Seen: 08:15 Chief complaint: Colonoscopy Narrative: 62-year-old male here for screening colonoscopy. Personal history of colonic polyps last colonoscopy 11 years ago. No abdominal concerns today including pain unintentional weight loss blood per rectum. No family history of intestinal malignancy. [facility] Medical History BPH w urinary obs/LUTS Left nephrolithiasis Hypertension History of nephrolithiasis Renal colic on left side Obstruction of left ureteropelvic junction (UPJ) due to stone Hydronephrosis of left kidney Colon polyps Left foot pain Nosebleed Inflamed sebaceous cyst Eczema Hyperlipidemia Sebaceous cyst Encounter for well adult exam with abnormal findings Surgical History History of urologic surgery (08/23/22) History of orthopedic surgery (06/27/22) History of back surgery Status post hernia repair Family History Grandfather Heart disease Grandfather Heart disease Cancer Diabetes mellitus Grandmother Stroke Father Diabetes mellitus Hx of migraines Social History marital status: number of children: 4 household members: spouse Smoking Status: Never smoker alcohol intake: current Meds Home Medications and Allergies Home Medications Medication Instructions Recorded Confirmed Type losartan 100 mg tablet 100 mg PO DAILY #90 tabs 09/17/22 03/25/23 Rx tamsulosin 0.4 mg capsule 0.4 mg PO BEDTIME #180 caps 09/25/22 03/25/23 Rx Allergies Allergy/AdvReac Type Severity Reaction Status Date / Time No Known Drug Allergies Allergy Verified 01/02/23 07:50 Exam Vital Signs (past 8 hours): - 03/25/23 07:25 Temperature 97.4 F L Pulse Rate 67 Respiratory Rate 16 Blood Pressure 144/85 H Pulse Oximetry 98 Oxygen Delivery Method Room Air Oxygen Delivery Method Room Air Narrative Exam Narrative: General adult man alert oriented no acute distress Chest nonlabored respiration Extremities warm well perfused Assessment & Plan Assessment & Plan narrative: The patient requires colorectal screening and colonoscopy is recommended. Technical details were discussed. Risks, benefits, alternatives explained. Risks including but not limited to myocardial infarction, aspiration, bleeding, pain, missed lesion, incomplete examination, need for further radiographic studies, colonic perforation, and need for major abdominal surgery were discussed. All questions were answered to their satisfaction, and they are in agreement with this plan.
--- NOTE | 2023-03-25 08:17 | PM.OP.COLON ---
Procedure & Clinicians Study performed: Colonoscopy Same procedure as scheduled: Yes Indications: Colorectal screening Surgeon: Stevie Segura Procedure Notes Procedure in detail: The history and physical was performed/updated and the patient is ASA class is 2. The procedure was discussed in detail with the patient. Potential risks complications including infection, bleeding, missed diagnosis, perforation, need for surgery, and were explained. Their questions were answered and informed consent was obtained. Patient was brought to the procedure room and placed standard monitoring equipment. The patient's vital signs were monitored continuously throughout the entire procedure. Prior to starting time-out was performed. The patient was placed in the left lateral recumbent position. Procedural sedation was administered by anesthesia. Examination began with a thorough inspection of the perianal area there was no evidence of fissures, fistulae, external hemorrhoids or cutaneous malignancy. The colonoscopy scope was then placed into the anal canal and was advanced to the cecum, which was identified by the ileocecal valve, the appendiceal orifice and the confluence of the taenia. The scope was then slowly withdrawn examining colon thoroughly in all directions, irrigating it of any residual stool. The scope was retroflexed within the rectum The patient tolerated the procedure well. They will be discharged once criteria are met. The prep was of good/excellent quality. The withdrawl time was 7 minutes. FINDINGS -No polyps -Sigmoid diverticulosis Specimen(s): none sent Impression: Normal colonoscopy Post-procedure Recommendations: Colonoscopy in 10 years Disposition: same day surgery
[2023-03-25 08:39] VITALS: BP 97/64; PULSE 59; RESP 17; TEMP 36.3; O2SAT 95
[2023-03-25 08:44] VITALS: BP 95/67; PULSE 57; RESP 13; O2SAT 95
[2023-03-25 08:49] VITALS: BP 109/66; PULSE 61; RESP 15; TEMP 36.3; O2SAT 98
[2023-03-25 08:54] VITALS: BP 107/72; PULSE 59; RESP 13; O2SAT 97
== END 2023-03-25 09:09 | disposition home or self-care (01) ==
PROVIDERS: Family Provider Family Medicine; PCP Family Medicine; Referring Provider Surgery; Visit Provider Surgery
PROC: 0DJD8ZZ Inspection of Lower Intestinal Tract, Via Natural or Artificial Opening Endoscopic (ICD-10-PCS; CPT 45378; principal; 2023-03-25 08:30)
DX: Z12.11 Encounter for screening for malignant neoplasm of colon (principal); K57.30 Diverticulosis of large intestine without perforation or abscess without bleeding
CPT/HCPCS: 45378; J2704

== ENCOUNTER → 2023-04-02 11:57 | Outpatient (CLI) | payer OTHER, SELFPAY ==
[2023-04-02 13:57] LABS: Prostate Specific Antigen 2.24 ng/mL (0.10-4.00)
== END ==
PROVIDERS: Family Provider Family Medicine; PCP Family Medicine; Referring Provider Specialist; Visit Provider Specialist
DX: N40.1 Benign prostatic hyperplasia with lower urinary tract symptoms (principal); N13.8 Other obstructive and reflux uropathy
CPT/HCPCS: 36415; 84153

== ENCOUNTER → 2023-04-06 13:54 | Outpatient (CLI) | payer OTHER, SELFPAY ==
--- NOTE | 2023-04-06 13:55 | DI.RAD.S_ITS ---
PROCEDURE: XR ANKLE LT MIN 3V INDICATIONS: Anterior ankle pain TECHNIQUE: 3 views of the ankle were acquired. COMPARISON: [facility], CR, XR ANKLE 1 OR 2 VIEWS LEFT, 03/21/2022, 10:47. [facility], CR, XR FOOT 3+ VIEWS LEFT, 07/24/2022, 9:12. FINDINGS: Bones: No fractures or dislocations. Ankle mortise is normally aligned. No suspicious bony lesions. The talar dome demonstrates no vesna abnormality. Postoperative change of the distal 2nd metatarsal can be seen. Soft tissues: No tibiotalar joint effusion. Achilles tendon appears normal. IMPRESSION: No significant ankle plain film abnormality is seen. Prior postoperative change of the distal 2nd metatarsal. Dictated by: Rj Villalba M.D. on 04/06/2023 at 13:19 Approved by: Rj Villalba M.D. on 04/06/2023 at 13:21
== END ==
PROVIDERS: Family Provider Family Medicine; PCP Family Medicine; Referring Provider Urology; Visit Provider Urology
DX: M25.572 Pain in left ankle and joints of left foot (principal)
CPT/HCPCS: 73610

== ENCOUNTER → 2023-06-18 07:52 | Outpatient (CLI) | payer OTHER, SELFPAY ==
--- NOTE | 2023-06-18 07:54 | DI.RAD.S_ITS ---
PROCEDURE: XR KNEE RT 3V INDICATIONS: Chronic right knee pain TECHNIQUE: 3 views of the knee were acquired. COMPARISON: [facility], , XR KNEE RT 3V, 11/20/2020, 15:16. [facility], , KNEE 3V LEFT, 06/29/2014, 11:15. FINDINGS: Bones: No fractures or dislocations. No suspicious bony lesions. Tricompartmental joint space narrowing with associated osteophytosis. Soft tissues: Moderate joint effusion. No suspicious soft tissue calcifications. IMPRESSION: [id number] tricompartmental osteoarthritis. Kellgren-Maximilian Grade 2. Moderate knee joint effusion. Dictated by: Manan Dixon M.D. on 06/18/2023 at 10:24 Approved by: Manan Dixon M.D. on 06/18/2023 at 10:26
== END ==
LOC: RAD 07:53
PROVIDERS: Family Provider Family Medicine; PCP Family Medicine; Referring Provider Family Medicine; Visit Provider Family Medicine
DX: M17.11 Unilateral primary osteoarthritis, right knee (principal); M25.461 Effusion, right knee; M25.561 Pain in right knee; G89.29 Other chronic pain
CPT/HCPCS: 73562

== ENCOUNTER → 2023-06-26 07:14 | Outpatient (CLI) | payer OTHER, SELFPAY ==
[2023-06-26 07:47] LABS: Add Manual Diff / Slide Review NO; Basophils Absolute Auto 0 /uL (0-100); Basophils Percent Auto 0.4 % (0-2); Eosinophils Absolute Auto 100 /uL (0-450); Eosinophils Percent Auto 1.4 % (2-4); Hematocrit 44.6 % (41-53); Hemoglobin 15.2 g/dL (13.5-17.5); Lymphocytes Absolute Auto 1600 /uL (1100-4500); Lymphocytes Percent Auto 20.5 % (25-40); Mean Corpuscular HGB Conc 34.2 % (30-36); Mean Corpuscular Hemoglobin 30.5 PG (26-34); Mean Corpuscular Volume 89.3 fL (80-100); Monocytes Absolute Auto 900 /uL (0-900); Monocytes Percent Auto 11.6 % (3-14); Neutrophils Absolute Auto 5300 /uL (1500-7000); Neutrophils Percent Auto 66.1 % (50-75); Platelet Count 239 X10^3/uL (150-400); Red Blood Cell Count 4.99 X10^6/uL (4.5-5.9); Red Cell Distribution Width 13.6 % (11.6-14.8); White Blood Cell Count 8.1 X10^3/uL (4.5-11.0)
[2023-06-26 08:13] LABS: Alanine Aminotransferase 29 IU/L (<50); Albumin 3.9 g/dL (3.5-5.0); Albumin Globulin Ratio 1.3 (1.0-2.8); Alkaline Phosphatase 95 U/L (38-126); Aspartate Aminotransferase 27 IU/L (17-59); BUN Creatinine Ratio 19.5 (6-22); Bilirubin Total 0.9 mg/dL (0.2-1.3); Blood Urea Nitrogen 17 mg/dL (9-20); Calcium 9.1 mg/dL (8.4-10.2); Carbon Dioxide 27 mmol/L (22-32); Chloride 104 mmol/L (98-107); Cholesterol 140 mg/dL (140-199); Estimated Glomerular Filt Rate > 60 mL/min (>60); Glucose 102 mg/dL (80-110); HDL Cholesterol 62 mg/dL (40-60); HEMOLYSIS < 15 (0-50); LDL Cholesterol Calculated 61 mg/dL (<100); Potassium 4.1 mmol/L (3.4-5.1); Sodium 138 mmol/L (137-145); Total Protein 6.9 g/dL (6.3-8.2); Triglycerides 87 mg/dL (35-150)
[2023-06-26 08:26] LABS: Creatinine Urine Random 130.5 mg/dL
[2023-06-26 08:32] LABS: Microalbumi Creatinin Ratio Ur 5.3 ug/mg CR (<30); Microalbumin Urine Random 0.7 mg/dL (0-1.6)
== END ==
PROVIDERS: Family Provider Family Medicine; PCP Family Medicine; Referring Provider Family Medicine; Visit Provider Family Medicine
DX: N20.0 Calculus of kidney (principal); I10 Essential (primary) hypertension; Z87.442 Personal history of urinary calculi; B07.9 Viral wart, unspecified; Z00.01 Encounter for general adult medical examination with abnormal findings; E78.5 Hyperlipidemia, unspecified
CPT/HCPCS: 36415; 80053; 80061; 82043; 82570; 85025

== ENCOUNTER → 2023-07-04 15:45 | Outpatient (CLI) | payer OTHER, SELFPAY ==
--- NOTE | 2023-07-04 15:46 | DI.MRI.S_ITS ---
PROCEDURE: MR KNEE RT WO CON INDICATIONS: acute on chronic right knee pain/swelling on XR TECHNIQUE: Noncontrast sagittal PD fast spin echo and T2 fast spin echo with fat saturation, sagittal 3-D FLASH with fat saturation; coronal T1 spin echo and PD fast spin echo with fat saturation, and axial PD fast spin echo with fat saturation through the knee. COMPARISON: [facility], MR, KNEE WITHOUT CONTRAST, 09/15/2014, 8:53. FINDINGS: Image quality: Excellent. Menisci: There is peripheral displacement of medial meniscus bowing medial collateral ligament. Complex tear involving body and posterior horn of medial meniscus is seen extending to both superior and inferior articulating surfaces. The lateral meniscus is intact. The meniscal root ligaments appear intact. Cruciate ligaments: The anterior cruciate ligament is markedly thickened with intrasubstance T2 hyperintense signal near its femoral insertion. The posterior cruciate ligament is intact. Medial structures: The medial collateral ligament appears mildly thickened with surrounding soft tissue edema. Visualized portions of the pes anserinus tendons appear normal. No abnormal bursal fluid. Lateral structures: The lateral collateral ligament, long and short heads of the biceps femoris tendon appear intact. The popliteus tendon appears normal. Iliotibial band appears normal. Anterior structures: The quadriceps tendon is intact. Proximal patellar tendinosis at its inferior patellar insertion is seen. Patellar alignment is normal. No edema in the infrapatellar fat pad. Bones and cartilage: Moderate to severe tricompartmental osteoarthritis and chondromalacia is seen most notably in medial femoral tibial compartment with near complete loss of joint space, extensive subchondral sclerosis and marginal osteophyte formation. Marrow edema in medial femoral tibial compartment is seen without discrete fracture line. Joint space: There is moderate joint effusion, no gross loose bodies.. No Mckeon's cyst. Normal appearing synovial plicae are incidentally noted. IMPRESSION: 1. Moderate to severe tricompartmental osteoarthritis and chondromalacia most notably in medial femoral tibial compartment. No fracture or dislocation. Moderate joint effusion, no gross loose bodies. 2. Chronic appearing complex tear involving body and posterior horn of medial meniscus extending to both superior and inferior articulating surfaces. The lateral meniscus is intact. 3. Moderate grade intrasubstance partial-thickness tear involving anterior cruciate ligament. No ACL rupture. The PCL is intact. 4. Low-grade proximal MCL sprain. 5. Proximal patella tendinosis. Dictated by: Ruel Ford M.D. on 07/04/2023 at 21:00 Approved by: Ruel Ford M.D. on 07/04/2023 at 21:05
== END ==
PROVIDERS: Family Provider Family Medicine; PCP Family Medicine; Referring Provider Family Medicine; Visit Provider Family Medicine
DX: S83.231A Complex tear of medial meniscus, current injury, right knee, initial encounter (principal); S83.511A Sprain of anterior cruciate ligament of right knee, initial encounter; S83.411A Sprain of medial collateral ligament of right knee, initial encounter; M25.561 Pain in right knee; M25.461 Effusion, right knee; G89.29 Other chronic pain; M17.11 Unilateral primary osteoarthritis, right knee; M94.261 Chondromalacia, right knee
CPT/HCPCS: 73721

== ENCOUNTER 2023-09-29 18:01 | Emergency (ER) | payer OTHER, SELFPAY ==
[2023-09-29 18:18] VITALS: BP 152/87; PULSE 110; RESP 20; TEMP 38.8; O2SAT 95; BMI 32.1
--- NOTE | 2023-09-29 18:26 | DI.RAD.S_ITS ---
PROCEDURE: XR CHEST 1V INDICATIONS: cough TECHNIQUE: One view of the chest was acquired. COMPARISON: [facility], , CHEST 2 VIEW, 05/17/2008, 12:45. FINDINGS: Surgical changes and devices: None. Lungs and pleura: Low lung volumes. Mild peribronchial cuffing. No dense airspace disease or pleural effusion Mediastinum: Heart size is at the upper limit of normal Bones and chest wall: Degenerative changes IMPRESSION: Mild peribronchial cuffing, possibly viral infection or bronchitis. No airspace disease or pleural effusions. Limited single view radiograph with low lung volumes. Dictated by: Joss West M.D. on 09/29/2023 at 19:03 Approved by: Joss West M.D. on 09/29/2023 at 19:04
[2023-09-29] MEDS: SODIUM CHLORIDE 0.9% FLUSH 10 ML IV (18:54)
[2023-09-29] MEDS: ACETAMINOPHEN 325 MG TABLET 650 MG PO (18:54)
[2023-09-29 19:01] LABS: Add Manual Diff / Slide Review NO; Basophils Absolute Auto 0 /uL (0-100); Basophils Percent Auto 0.4 % (0-2); Eosinophils Absolute Auto 0 /uL (0-450); Eosinophils Percent Auto 0.3 % (2-4); Hemoglobin 15.4 g/dL (13.5-17.5); Lymphocytes Absolute Auto 1400 /uL (1100-4500); Lymphocytes Percent Auto 13.5 % (25-40); Mean Corpuscular HGB Conc 34.1 % (30-36); Mean Corpuscular Hemoglobin 30.2 PG (26-34); Mean Corpuscular Volume 88.5 fL (80-100); Monocytes Absolute Auto 1000 /uL (0-900); Neutrophils Absolute Auto 7800 /uL (1500-7000); Neutrophils Percent Auto 75.8 % (50-75); Platelet Count 208 X10^3/uL (150-400); Red Blood Cell Count 5.09 X10^6/uL (4.5-5.9); Red Cell Distribution Width 13.9 % (11.6-14.8); White Blood Cell Count 10.2 X10^3/uL (4.5-11.0)
[2023-09-29 19:19] LABS: BUN Creatinine Ratio 21.1 (6-22); Blood Urea Nitrogen 19 mg/dL (9-20); Carbon Dioxide 25 mmol/L (22-32); Chloride 106 mmol/L (98-107); Estimated Glomerular Filt Rate > 60 mL/min (>60); Glucose 93 mg/dL (80-110); HEMOLYSIS 33 (0-50); Potassium 3.9 mmol/L (3.4-5.1); Sodium 137 mmol/L (137-145)
[2023-09-29 19:30] LABS: Adenovirus Not Detected (Not Detect); B. parapertussis Not Detected (Not Detecte); Bordetella pertussis Not Detected (Not Detect); Chlamydophila pneumoniae Not Detected (Not Detect); Coronavirus 229E Not Detected (Not Detect); Coronavirus HKU1 Not Detected (Not Detect); Coronavirus NL 63 Not Detected (Not Detect); Coronavirus OC43 Not Detected (Not Detect); Human Metapneumovirus Detected (Not Detect); Human Rhinovirus/Enterovirus Not Detected (Not Detect); Influenza A Not Detected (Not Detect); Influenza B Not Detected (Not Detect); Mycoplasma pneumoniae Not Detected (Not Detect); Parainfluenza Virus 1 Not Detected (Not Detect); Parainfluenza Virus 2 Not Detected (Not Detect); Parainfluenza Virus 3 Not Detected (Not Detect); Parainfluenza Virus 4 Not Detected (Not Detect); Respiratory Syncytial Virus Not Detected (Not Detect); SARS- CoV-2 Not Detected (Not Detecte)
[2023-09-29 19:51] VITALS: PULSE 95; O2SAT 97
--- NOTE | 2023-09-29 19:52 | ED.GENADULT ---
HPI - General Adult General Chief complaint: Shortness of Breath/Dyspnea Stated complaint: 7-8 weeks respiratory issues, getting worse Time Seen by Provider: 09/29/23 18:25 Source: patient Mode of arrival: Ambulatory History of Present Illness HPI narrative: Patient is a 63-year-old male is here for evaluation approximately 8 weeks of cough and congestion. He states it initially started as nasal congestion and upper respiratory symptoms. He went to the walk-in clinic. Was told to take nasal sprays and decongestants which he has been doing. Now he is having chest congestion and cough and chest discomfort from the cough. He went back to the walk-in clinic and was told to come to the emergency department for further evaluation. No vomiting. No skin changes. No lower extremity swelling. Related Data Previous Rx's Medication Instructions Recorded tamsulosin 0.4 mg capsule 0.8 mg (2 x 0.4 mg) PO BEDTIME 04/09/23 #180 caps bupropion HCl 150 mg 24 hr tablet, 150 mg PO QAM #90 tabs 05/29/23 extended release (Wellbutrin XL) losartan 100 mg tablet 100 mg PO DAILY #90 tabs 07/01/23 fluticasone propionate 50 1 spray intranasal Q12H #16 grams 09/11/23 mcg/actuation nasal spray,suspension (Flonase Allergy Relief) benzonatate 100 mg capsule 100 mg PO BID-TID PRN cough #20 09/29/23 caps Allergies Allergy/AdvReac Type Severity Reaction Status Date / Time No Known Drug Allergies Allergy Verified 09/11/23 16:22 Review of Systems Review of Systems Narrative: See HPI Patient History Medical History Left nephrolithiasis BPH w urinary obs/LUTS Hypertension History of nephrolithiasis Renal colic on left side Obstruction of left ureteropelvic junction (UPJ) due to stone Hydronephrosis of left kidney Colon polyps Left foot pain Nosebleed Inflamed sebaceous cyst Eczema Hyperlipidemia Sebaceous cyst Encounter for well adult exam with abnormal findings Surgical History History of urologic surgery (08/23/22) History of orthopedic surgery (06/27/22) History of back surgery Status post hernia repair Family History Grandfather Heart disease Grandfather Heart disease Cancer Diabetes mellitus Grandmother Stroke Father Diabetes mellitus Hx of migraines Social History marital status: number of children: 4 household members: spouse Smoking Status: Never smoker alcohol intake: current Smoking Status: Never smoker alcohol intake frequency: holidays/special occasions only Substance Use Type: does not use Exam Initial Vital Signs Initial Vital Signs: Vital Signs Temperature 101.8 F H 09/29/23 18:18 Pulse Rate 110 H 09/29/23 18:18 Respiratory Rate 20 09/29/23 18:18 Blood Pressure 152/87 H 09/29/23 18:18 Pulse Oximetry 95 09/29/23 18:18 Oxygen Delivery Method Room Air 09/29/23 18:18 HENMT Head: normal to inspection and normocephalic Resp Effort & Inspection: normal respiratory effort Auscultation: clear to auscultation bilaterally Cardio Rate: regular rate Rhythm: regular rhythm Neuro General: patient alert and patient awake Extrem General: No edema Course Orders Ordered: ED Orders 09/29/23 18:26 XR chest 1V Stat EKG-12 Lead Stat 09/29/23 18:33 Respiratory Panel (Film Array) Stat 09/29/23 18:56 Basic Metabolic Panel Stat Complete Blood Count AUTO DIFF Stat Discontinued Medications Acetaminophen (Acetaminophen 325 Mg Tablet) 650 mg PO NOW ONE Stop: 09/29/23 18:30 Last Admin: 09/29/23 18:54 Dose: 650 mg Documented By: PARDEEP Benzonatate (Benzonatate 100 Mg Capsule) 100 mg PO NOW ONE Stop: 09/29/23 20:22 Last Admin: 09/29/23 20:25 Dose: 100 mg Documented By: PARDEEP Sodium Chloride (Sodium Chloride 0.9% Flush) 10 ml IV BID SUKHJINDER Sodium Chloride (Sodium Chloride 0.9% Flush) 10 ml IV PRN PRN PRN Reason: Flush Last Admin: 09/29/23 18:54 Dose: 10 ml Documented By: PARDEEP Vital Signs Vital signs: Vital Signs - 8 hr 09/29/23 18:18 09/29/23 19:51 09/29/23 20:00 Temperature 101.8 F H Pulse Rate 110 H 95 H 94 H Respiratory Rate 20 Blood Pressure 152/87 H Pulse Oximetry 95 97 96 Oxygen Delivery Method Room Air 09/29/23 20:11 09/29/23 20:11 09/29/23 20:33 Temperature 99.2 F 99.2 F Pulse Rate 91 H Respiratory Rate Blood Pressure 135/86 Pulse Oximetry 96 Oxygen Delivery Method Room Air Medical Decision Making Lab Data Lab results reviewed: Yes I reviewed the patient's lab results. 09/29/23 18:56 09/29/23 18:56 Labs: Lab Results 09/29/23 09/29/23 Range/Units 18:33 18:56 WBC 10.2 (4.5-11.0) X10^3/uL RBC 5.09 (4.5-5.9) X10^6/uL Hgb 15.4 (13.5-17.5) g/dL Hct 45.0 (41-53) % MCV 88.5 (80-100) fL MCH 30.2 (26-34) PG MCHC 34.1 (30-36) % RDW 13.9 (11.6-14.8) % Plt Count 208 (150-400) X10^3/uL Neut % (Auto) 75.8 H (50-75) % Lymph % (Auto) 13.5 L (25-40) % [place] % (Auto) 10.0 (3-14) % Eos % (Auto) 0.3 L (2-4) % Baso % (Auto) 0.4 (0-2) % Neut # (Auto) 7800 H (7477-9260) /uL Lymph # (Auto) 1400 (4381-5540) /uL [place] # (Auto) 1000 H (0-900) /uL Eos # (Auto) 0 (0-450) /uL Baso # (Auto) 0 (0-100) /uL Sodium 137 (137-145) mmol/L Potassium 3.9 (3.4-5.1) mmol/L Chloride 106 (98-107) mmol/L Carbon Dioxide 25 (22-32) mmol/L BUN 19 (9-20) mg/dL Creatinine 0.90 (0.66-1.25) mg/dL Estimated GFR > 60 (>60) mL/min BUN/Creatinine Ratio 21.1 (6-22) Glucose 93 (80-110) mg/dL Calcium 9.0 (8.4-10.2) mg/dL Chlamy pneumoniae PCR Not detected (Not Detect) Adenovirus (PCR) Not detected (Not Detect) B.parapertussis DNA PCR Not detected (Not Detecte) Coronavirus OC43 (PCR) Not detected (Not Detect) Coronavirus HKU1 (PCR) Not detected (Not Detect) Coronavirus 229E (PCR) Not detected (Not Detect) SARS-CoV-2 (PCR) Not detected (Not Detecte) Coronavirus NL63 (PCR) Not detected (Not Detect) Human Metapneumovir PCR Detected H (Not Detect) Influenza Type A (PCR) Not detected (Not Detect) Influenza Type B (PCR) Not detected (Not Detect) M. pneumoniae (PCR) Not detected (Not Detect) Parainfluenza 1 (PCR) Not detected (Not Detect) Parainfluenza 2 (PCR) Not detected (Not Detect) Parainfluenza 3 (PCR) Not detected (Not Detect) Parainfluenza 4 (PCR) Not detected (Not Detect) RSV (PCR) Not detected (Not Detect) Entero/Rhino (PCR) Not detected (Not Detect) Imaging Data Chest x-ray: Radiologist's Impression: PROCEDURE: XR CHEST 1V INDICATIONS: cough TECHNIQUE: One view of the chest was acquired. COMPARISON: [facility], CHEST 2 VIEW, 05/17/2008, 12:45. FINDINGS: Surgical changes and devices: None. Lungs and pleura: Low lung volumes. Mild peribronchial cuffing. No dense airspace disease or pleural effusion Mediastinum: Heart size is at the upper limit of normal Bones and chest wall: Degenerative changes IMPRESSION: Mild peribronchial cuffing, possibly viral infection or bronchitis. No airspace disease or pleural effusions. Limited single view radiograph with low lung volumes. ECG Data Attestation: I personally reviewed and interpreted this ECG as follows: Interpretation: Sinus rhythm Ventricular rate 91 LVH Normal QRS No ST T wave changes MDM Narrative Medical decision making narrative: Chest x-ray shows no signs of consolidation and more consistent with a viral infection. Is positive for human metapneumovirus which certainly explains his presenting symptoms today. Is well hydrated. Tolerating oral intake. We did discuss things that the patient could try at home to help with the symptoms. Will send home with a prescription for benzoate. We discussed his diagnosis. Discussed return precautions. He expressed understanding and agreement. Discharge Plan Departure Patient Disposition: Home Clinical Impression: Human metapneumovirus pneumonia Instructions: Human Metapneumovirus Infection Activity Restrictions/Additional Instructions: You can take Tylenol for any fevers. Use the the Tessalon Perles/benzoate for cough. Contact your primary doctor for follow-up. Return to the emergency department for new symptoms. Prescriptions: New benzonatate 100 mg capsule 100 mg PO BID-TID PRN (Reason: cough) Qty: 20 0RF No Action fluticasone propionate [Flonase Allergy Relief] 50 mcg/actuation spray,suspension 1 spray intranasal Q12H Qty: 16 0RF Rx Instructions: administer into each nostril bupropion HCl [Wellbutrin XL] 150 mg tablet extended release 24 hr 150 mg PO QAM Qty: 90 1RF losartan 100 mg tablet 100 mg PO DAILY Qty: 90 1RF tamsulosin 0.4 mg capsule 0.8 mg PO BEDTIME Qty: 180 3RF Referrals: Melo Fox MD [Primary Care Provider] - Stand Alone Forms: Patient Portal/API
[2023-09-29 20:00] VITALS: PULSE 94; O2SAT 96
[2023-09-29 20:11] VITALS: BP 135/86; PULSE 91; TEMP 37.3; O2SAT 96
[2023-09-29] MEDS: BENZONATATE 100 MG CAPSULE PO (20:25)
[2023-09-29 20:33] VITALS: TEMP 37.3
== END 2023-09-29 20:32 | disposition home or self-care (01) ==
PROVIDERS: Emergency Provider Emergency Medicine; Family Provider Family Medicine; PCP Family Medicine
DX: J18.9 Pneumonia, unspecified organism (principal); B97.81 Human metapneumovirus as the cause of diseases classified elsewhere; R03.0 Elevated blood-pressure reading, without diagnosis of hypertension
CPT/HCPCS: 36415; 71045; 80048; 85025; 87633; 93005; 99284

== ENCOUNTER → 2023-11-04 12:40 | Outpatient (CLI) | payer OTHER, SELFPAY ==
--- NOTE | 2023-11-04 12:40 | DI.RAD.S_ITS ---
PROCEDURE: XR CERVICAL SPINE 4V OR 5V INDICATIONS: Right sided neck pain; numbness/tingling RMF TECHNIQUE: 5 views of the cervical spine acquired. COMPARISON: None. FINDINGS: Bones: No fractures or dislocations to the T1 level. Uncovertebral hypertrophy and moderate degenerative disc disease at C5-C6. Mild bilateral facet arthropathy at C5-C6. Oblique images demonstrate moderate right and mild left bony foraminal stenoses at C5-C6. Soft tissues: No prevertebral soft tissue swelling. IMPRESSION: 1. Degenerative disc and facet disease at C5-C6. There is moderate foraminal stenosis at C5-C6 on the right. In this patient with radiculopathy symptoms, MRI is recommended for further evaluation. Dictated by: Virginia Ingram M.D. on 11/05/2023 at 8:40 Approved by: Virginia Ingram M.D. on 11/05/2023 at 8:41
== END ==
PROVIDERS: Family Provider Family Medicine; PCP Family Medicine; Referring Provider Physician Assistant; Visit Provider Physician Assistant
DX: M50.122 Cervical disc disorder at C5-C6 level with radiculopathy (principal); M47.22 Other spondylosis with radiculopathy, cervical region; M48.02 Spinal stenosis, cervical region
CPT/HCPCS: 72050

== ENCOUNTER → 2024-05-31 06:18 | Outpatient (CLI) | payer OTHER, SELFPAY ==
[2024-05-31 08:38] LABS: Prostate Specific Antigen 2.18 ng/mL (0.10-4.00)
== END ==
PROVIDERS: Family Provider Family Medicine; PCP Family Medicine; Referring Provider Urology; Visit Provider Urology
DX: R97.20 Elevated prostate specific antigen [PSA] (principal)
CPT/HCPCS: 36415; 84153

== ENCOUNTER → 2024-10-08 06:38 | Outpatient (CLI) | payer OTHER, SELFPAY ==
[2024-10-08 07:59] LABS: Add Manual Diff / Slide Review NO; Basophils Absolute Auto 0 /uL (0-100); Basophils Percent Auto 0.5 % (0-2); Eosinophils Absolute Auto 100 /uL (0-450); Eosinophils Percent Auto 1.6 % (2-4); Hematocrit 47.4 % (41-53); Hemoglobin 16.1 g/dL (13.5-17.5); Lymphocytes Absolute Auto 1900 /uL (1100-4500); Lymphocytes Percent Auto 27.8 % (25-40); Mean Corpuscular Hemoglobin 30.9 PG (26-34); Mean Corpuscular Volume 91.1 fL (80-100); Monocytes Absolute Auto 600 /uL (0-900); Monocytes Percent Auto 8.5 % (3-14); Neutrophils Absolute Auto 4300 /uL (1500-7000); Neutrophils Percent Auto 61.6 % (50-75); Platelet Count 251 X10^3/uL (150-400); Red Cell Distribution Width 13.4 % (11.6-14.8); White Blood Cell Count 6.9 X10^3/uL (4.5-11.0)
[2024-10-08 08:47] LABS: Alanine Aminotransferase 27 IU/L (<50); Albumin 4.2 g/dL (3.5-5.0); Albumin Globulin Ratio 1.7 (1.0-2.8); Alkaline Phosphatase 91 U/L (38-126); Aspartate Aminotransferase 28 IU/L (17-59); BUN Creatinine Ratio 22.8 (6-22); Bilirubin Total 0.6 mg/dL (0.2-1.3); Blood Urea Nitrogen 21 mg/dL (9-20); Carbon Dioxide 30 mmol/L (22-32); Chloride 105 mmol/L (98-107); Cholesterol 144 mg/dL (140-199); Estimated Glomerular Filt Rate > 60 mL/min (>60); Globulin 2.5 g/dL (1.7-4.1); Glucose 94 mg/dL (70-99); HDL Cholesterol 57 mg/dL (40-60); HEMOLYSIS < 15 (0-50); LDL Cholesterol Calculated 74 mg/dL (<100); Potassium 4.5 mmol/L (3.4-5.1); Sodium 140 mmol/L (137-145); Total Protein 6.7 g/dL (6.3-8.2); Triglycerides 66 mg/dL (35-150)
[2024-10-08 09:11] LABS: TSH w/ Reflex to FT4 1.65 uIU/mL (0.47-4.68)
[2024-10-08 09:13] LABS: Prostate Specific Antigen Scrn 3.84 ng/mL (0.1-4.0)
[2024-10-08 10:01] LABS: Creatinine Urine Random 180.06 mg/dL
[2024-10-08 10:05] LABS: Microalbumin Urine Random 1.2 mg/dL (0-1.6)
[2024-10-09 07:40] LABS: Apolipoprotein B 56 mg/dL (<90)
== END ==
PROVIDERS: Family Provider Family Medicine; PCP Family Medicine; Referring Provider Family Medicine; Visit Provider Family Medicine
DX: Z12.5 Encounter for screening for malignant neoplasm of prostate (principal); N32.81 Overactive bladder; N40.1 Benign prostatic hyperplasia with lower urinary tract symptoms; N13.8 Other obstructive and reflux uropathy; I10 Essential (primary) hypertension
CPT/HCPCS: 36415; 80053; 80061; 82043; 82172; 82570; 84443; 85025; G0103

== ENCOUNTER → 2024-10-08 14:37 | Outpatient (CLI) | payer OTHER, SELFPAY ==
--- NOTE | 2024-10-08 15:59 | EKG_ITS ---
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
[2024-10-08 16:37] LABS: Appearance Urine UA CLEAR; Bilirubin Urine UA NEGATIVE (NEGATIVE); Color Urine UA YELLOW; Glucose Urine UA NEGATIVE (Negative); Ketones Urine UA NEGATIVE (NEGATIVE); Leukocyte Esterase Urine UA NEGATIVE (NEGATIVE); Nitrite Urine UA NEGATIVE (Negative); Occult Blood Urine UA NEGATIVE (Negative); Protein Urine UA NEGATIVE (Negative); Specific Gravity Urine UA >=1.030 (1.000-1.035); Urobilinogen Urine UA 0.2 E.U./dL (0.2); pH Urine UA 5.5 (4.5-8.0)
[2024-10-08 16:46] LABS: Bacteria Urine Few (2-10); Culture Indicated Urine Cult Not Indicated; Mucus Urine 1+ (Negative); RBC Urine None Seen (0-5/HPF); Squamous Epithelial Cell Urine 0-1 /HPF (0-5/HPF); Urine Volume 10mL (spun); WBC Urine 0-1/HPF (0-5/HPF)
[2024-10-08 17:08] LABS: Add Manual Diff / Slide Review NO; Basophils Absolute Auto 0 /uL (0-100); Basophils Percent Auto 0.3 % (0-2); Eosinophils Absolute Auto 100 /uL (0-450); Eosinophils Percent Auto 1.2 % (2-4); Hematocrit 46.2 % (41-53); Hemoglobin 15.8 g/dL (13.5-17.5); Lymphocytes Absolute Auto 2300 /uL (1100-4500); Lymphocytes Percent Auto 21.1 % (25-40); Mean Corpuscular HGB Conc 34.3 % (30-36); Mean Corpuscular Hemoglobin 31.2 PG (26-34); Mean Corpuscular Volume 91.1 fL (80-100); Monocytes Absolute Auto 800 /uL (0-900); Monocytes Percent Auto 7.8 % (3-14); Neutrophils Absolute Auto 7500 /uL (1500-7000); Neutrophils Percent Auto 69.6 % (50-75); Platelet Count 246 X10^3/uL (150-400); Red Blood Cell Count 5.07 X10^6/uL (4.5-5.9); Red Cell Distribution Width 13.5 % (11.6-14.8); White Blood Cell Count 10.7 X10^3/uL (4.5-11.0)
[2024-10-08 17:23] LABS: BUN Creatinine Ratio 23.7 (6-22); Blood Urea Nitrogen 23 mg/dL (9-20); Calcium 9.2 mg/dL (8.4-10.2); Carbon Dioxide 26 mmol/L (22-32); Chloride 106 mmol/L (98-107); Estimated Glomerular Filt Rate > 60 mL/min (>60); Glucose 85 mg/dL (70-99); HEMOLYSIS < 15 (0-50); Potassium 4.3 mmol/L (3.4-5.1); Sodium 139 mmol/L (137-145)
== END ==
PROVIDERS: Family Provider Family Medicine; PCP Family Medicine; Referring Provider Family Medicine; Visit Provider Family Medicine
DX: Z01.818 Encounter for other preprocedural examination (principal); Z01.812 Encounter for preprocedural laboratory examination; N39.0 Urinary tract infection, site not specified
CPT/HCPCS: 36415; 80048; 80053; 80061; 81001; 82043; 82172; 82570; 84443; 85025; 93005; 93010; G0103

== ENCOUNTER 2024-10-11 16:48 | Emergency (ER) | payer OTHER, SELFPAY ==
[2024-10-11 16:50] VITALS: BP 142/75; PULSE 68; RESP 18; TEMP 36.6; O2SAT 97; BMI 32.1
[2024-10-11] MEDS: LIDOCAINE 5% PATCH 1 EACH TOP (18:03)
[2024-10-11 18:10] VITALS: BP 132/67; PULSE 56; RESP 18; TEMP 36.6; O2SAT 99
--- NOTE | 2024-10-11 18:56 | ED_ITS ---
HPI - Extremity Injury (Lower) <Ermelinda Marquez PA-C - Last Filed: 10/11/24 19:01> General Chief Complaint: Extremity Injury, Lower Stated Complaint: left leg px, sent by [facility] r/u blood clot Time Seen by Provider: 10/11/24 17:11 History of Present Illness HPI Narrative: 64-year-old male presents to the ED with a left calf injury sustained earlier this morning. Patient was attempting to get his metal robot into his trailer, when he felt a pop in his left calf which has been painful since then when he walks. Patient states that it is only painful when he walks. Patient does endorse full range of motion with his knee. No numbness, tingling, weakness. Related Data Previous Rx's Medication Instructions Recorded naproxen 500 mg tablet 500 mg PO BID PRN pain #40 tabs 02/25/24 tamsulosin 0.4 mg capsule 0.8 mg (2 x 0.4 mg) PO BEDTIME 05/21/24 #180 caps mirabegron 50 mg tablet,extended 50 mg PO DAILY #90 tabs 08/12/24 release 24 hr bupropion HCl 150 mg 24 hr tablet, See Rx Instructions PO QAM #180 08/26/24 extended release (Wellbutrin XL) tabs losartan 100 mg tablet 100 mg PO DAILY #90 tabs 10/14/24 Allergies Allergy/AdvReac Type Severity Reaction Status Date / Time No Known Drug Allergies Allergy Verified 10/14/24 15:19 Review of Systems <Ermelinda Marquez PA-C - Last Filed: 10/11/24 19:01> Constitutional Constitutional: Denies chills, Denies fatigue, Denies fever(s), Denies frequent falls, Denies lethargy and Denies weakness Eyes Eyes: Denies change in vision, Denies eye discharge, Denies irritation and Denies loss of vision ENT Ears, Nose, Mouth, and Throat: Denies change in voice, Denies dizziness, Denies neck pain, Denies sore throat and Denies throat swelling Cardiovascular Cardiovascular: Denies chest pain, Denies irregular heart rhythm, Denies lightheadedness, Denies palpitations, Denies dyspnea, Denies dyspnea on exertion and Denies orthopnea Respiratory Respiratory: Denies cough, Denies dyspnea, Denies dyspnea on exertion and Denies wheezing Gastrointestinal Gastrointestinal: Denies abdominal pain, Denies change in bowel habits, Denies diarrhea, Denies nausea and Denies vomiting Musculoskeletal Musculoskeletal: Denies neck pain and Denies numbness Comments: Left calf pain Integumentary/Breasts Skin/Breast: Denies pruritus, Denies erythema, Denies rash and Denies wounds Neurologic Neurologic: Denies behavioral changes, Denies confusion, Denies dizziness, Denies frequent falls, Denies loss of vision, Denies numbness and Denies weakness Psychiatric Psychiatric: Denies anxiety, Denies behavioral changes, Denies confusion, Denies depression, Denies homicidal ideation and Denies suicidal ideation Endocrine Endocrine: Denies fatigue, Denies flushing and Denies palpitations Hematologic/Lymphatic Hematologic/Lymphatic: Denies easy bruising Allergic/Immunologic Allergic/Immunologic: Denies urticaria, Denies throat swelling and Denies wheezing Patient History <Ermelinda Marquez PA-C - Last Filed: 10/11/24 19:01> Medical History Left nephrolithiasis BPH w urinary obs/LUTS Hypertension History of nephrolithiasis Renal colic on left side Obstruction of left ureteropelvic junction (UPJ) due to stone Hydronephrosis of left kidney Colon polyps Left foot pain Nosebleed Inflamed sebaceous cyst Eczema Hyperlipidemia Sebaceous cyst Encounter for well adult exam with abnormal findings Surgical History History of urologic surgery (08/23/22) History of orthopedic surgery (06/27/22) History of back surgery Status post hernia repair Family History Grandfather Heart disease Grandfather Heart disease Cancer Diabetes mellitus Grandmother Stroke Father Diabetes mellitus Hx of migraines Social History marital status: number of children: 4 household members: spouse Smoking Status: Never smoker alcohol intake: current Smoking Status: Never smoker alcohol intake frequency: holidays/special occasions only Exam <Ermelinda Marquez PA-C - Last Filed: 10/11/24 19:01> Narrative Exam Narrative: Const General:?cooperative, healthy appearing and comfortable HENMT Head:?normal to inspection Ears:?hearing grossly normal bilaterally Nose:?external nose normal Face and sinus:?normal facial exam and sinuses nontender Mouth:?oral mucosae normal Throat:?posterior oropharynx normal Eyes General:?appearance normal, both eyes and all related structures Neck Neck:?normal visual inspection and no lymphadenopathy noted Resp Effort & Inspection:?normal respiratory effort Auscultation:?clear to auscultation bilaterally Cardio Rate:?regular rate Rhythm:?regular rhythm Musculoskeletal Full range of motion. Strength and sensation is intact. There is some tenderness to palpation of the left proximal calf. No bruising. Neurovascularly intact. Neuro General:?patient alert, patient awake and patient oriented x3 Initial Vital Signs Initial Vital Signs: Vital Signs Temperature 97.9 F 10/11/24 16:50 Pulse Rate 68 10/11/24 16:50 Respiratory Rate 18 10/11/24 16:50 Blood Pressure 142/75 H 10/11/24 16:50 Pulse Oximetry 97 10/11/24 16:50 Oxygen Delivery Method Room Air 10/11/24 16:50 <DO Anjel Briceno Last Filed: 10/17/24 21:01> Initial Vital Signs Initial Vital Signs: Vital Signs Temperature 97.9 F 10/11/24 16:50 Pulse Rate 68 10/11/24 16:50 Respiratory Rate 18 10/11/24 16:50 Blood Pressure 142/75 H 10/11/24 16:50 Pulse Oximetry 97 10/11/24 16:50 Oxygen Delivery Method Room Air 10/11/24 16:50 Course <Ermelinda Marquez PA-C - Last Filed: 10/11/24 19:01> Orders Ordered: Discontinued Medications Lidocaine (Lidocaine 5% Patch) 1 each TOP NOW ONE Stop: 10/11/24 17:56 Last Admin: 10/11/24 18:03 Dose: 1 each Documented By: RB Vital Signs Vital signs: Vital Signs - 8 hr 10/11/24 16:50 10/11/24 18:10 Temperature 97.9 F 98 F Pulse Rate 68 56 L Respiratory Rate 18 18 Blood Pressure 142/75 H 132/67 Pulse Oximetry 97 99 Oxygen Delivery Method Room Air Room Air <DO Anjel Briceno Last Filed: 10/17/24 21:01> Orders Ordered: Discontinued Medications Lidocaine (Lidocaine 5% Patch) 1 each TOP NOW ONE Stop: 10/11/24 17:56 Last Admin: 10/11/24 18:03 Dose: 1 each Documented By: NICO Vital Signs Vital signs: Vital Signs - 8 hr 10/11/24 16:50 10/11/24 18:10 Temperature 97.9 F 98 F Pulse Rate 68 56 L Respiratory Rate 18 18 Blood Pressure 142/75 H 132/67 Pulse Oximetry 97 99 Oxygen Delivery Method Room Air Room Air MDM - Extremity Injury (Lower) <Ermelinda Marquez PA-C - Last Filed: 10/11/24 19:01> MDM Narrative Medical decision making narrative: 64-year-old male presents to the ED with a left calf injury sustained earlier this morning. History and physical exam is most consistent with a calf muscle strain of the left calf. No indication for imaging at this time. Patient is able to bear weight and walk, albeit with pain. Recommend conservative treatment with lidocaine patches, Irwin wrap, rest, elevation. Recommend ibuprofen for pain control. Recommend follow-up with PCP as soon as possible. ED return precautions discussed with patient. Patient verbalized understanding. Medical records reviewed: Yes Discharge Plan Departure Patient Disposition: Home Clinical Impression: Strain of left calf muscle Instructions: DI for Calf Muscle Strain Activity Restrictions/Additional Instructions: You were evaluated in the ED today for a left calf injury. It appears that you might have a calf muscle injury which is a calf sprain. A lidocaine patch and an Irwin wrap has been applied for pain relief. You may apply ice for the 1st 24 hours, followed by heat. You may take 800 mg of ibuprofen every 8 hours with food for pain relief. Please follow-up with your PCP as soon as possible. Return to the ED if you have worsening symptoms, numbness, tingling, weakness. Prescriptions: No Action tamsulosin 0.4 mg capsule 0.8 mg PO BEDTIME Qty: 180 3RF naproxen 500 mg tablet 500 mg PO BID PRN (Reason: pain) Qty: 40 0RF bupropion HCl [Wellbutrin XL] 150 mg tablet extended release 24 hr See Rx Instructions PO QAM Qty: 180 2RF Rx Instructions: t1 tab po daily for 2 weeks, then increase to 2 tabs po daily thereafter losartan 100 mg tablet 100 mg PO DAILY Qty: 90 3RF mirabegron 50 mg tablet extended release 24 hr 50 mg PO DAILY Qty: 90 0RF Referrals: Melo Fox MD [Primary Care Provider] - Stand Alone Forms: Patient Portal/API/Survey, Work Release Note ED Sign-out <Freda Koch DO - Last Filed: 10/17/24 21:01> Cosign ED Attending Cosignature Attestation: I was available for consultation.
== END 2024-10-11 18:11 | disposition home or self-care (01) ==
PROVIDERS: Emergency Provider Student in an Organized Health Care Education/Training Program; Family Provider Family Medicine; PCP Family Medicine
DX: S86.912A Strain of unspecified muscle(s) and tendon(s) at lower leg level, left leg, initial encounter (principal); X58.XXXA Exposure to other specified factors, initial encounter
CPT/HCPCS: 99282

== ENCOUNTER → 2024-11-18 06:50 | Outpatient (CLI) | payer OTHER, SELFPAY ==
[2024-11-18 07:57] LABS: Albumin 4.2 g/dL (3.5-5.0)
[2024-11-18 08:17] LABS: Vitamin D 25 Hydroxy (D3) 32.8 ng/mL (30.0-100.0)
[2024-11-18 08:18] LABS: Hemoglobin A1C% w Est Avg Glu 5.1 % (4.0-6.0)
[2024-11-18 08:25] LABS: Prealbumin 26.2 mg/dL (17.6-36.0)
== END ==
PROVIDERS: Orthopaedic Surgery Adult Reconstructive Orthopaedic Surgery; PCP Family Medicine; Referring Provider Family Medicine; Visit Provider Family Medicine
DX: Z01.818 Encounter for other preprocedural examination (principal)
CPT/HCPCS: 36415; 82040; 82306; 83036; 84134

== ENCOUNTER 2024-12-13 06:36 | Day surgery (SDC) | payer OTHER, SELFPAY ==
[2024-12-08 14:31] VITALS: BMI 32.6
[2024-12-13] VITALS (8 sets, daily range): BP systolic 128–169; BP diastolic 64–91; PULSE 64–90; RESP 8–19; TEMP 36.3–36.6; O2SAT 94–98; BMI 32.6
--- NOTE | 2024-12-13 06:00 | DI.RAD.S_ITS ---
PROCEDURE: XR KNEE RT 2V INDICATIONS: s/p Partial knee replacement TECHNIQUE: 2 views of the right knee were acquired. COMPARISON: [facility], , XR KNEE RT 3V, 06/18/2023, 8:12. FINDINGS: Postoperative changes with soft tissue gas, soft tissue edema and joint space fluid in the suprapatellar recess on the lateral image, expected postoperative changes status post right knee medial compartment arthroplasty. No radiographic evidence of periprosthetic fracture or high attenuation surgical instrument or foreign body. IMPRESSION: Right knee medial compartment arthroplasty with expected postoperative changes as discussed above. Continued follow-up suggested Dictated by: Mj Young M.D. on 12/13/2024 at 12:40 Approved by: Mj Young M.D. on 12/13/2024 at 12:45
[2024-12-13] MEDS: MELOXICAM 7.5 MG TABLET 15 MG PO (06:53)
[2024-12-13] MEDS: ACETAMINOPHEN 325 MG TABLET 975 MG PO (06:54)
[2024-12-13] MEDS: LACTATED RINGERS 1,000 ML 42 ML IV ×2 (06:55→08:46)
--- NOTE | 2024-12-13 07:37 | PM.PREOP ---
Pre-operative Note Interval Note History & Physical reviewed/Exam performed by Physician: Yes Changes to H&P: No
[2024-12-13] MEDS: CEFAZOLIN 2 GM/100 ML PREMIX 100 ML IV (08:08)
[2024-12-13] MEDS: TRANEXAMIC ACID 1,000 MG VIAL 1000 MG INJ ×2 (08:11→10:21)
--- NOTE | 2024-12-13 08:37 | SUR.OPER ---
Supine on padded OR bed, head on pillow, arms secured on padded arm boards at <90 degrees abduction, legs uncrossed, safety belt at thigh, tape over blanket over lower legs.
[2024-12-13] MEDS: KETOROLAC 30 MG/ML VIAL IV (08:53)
[2024-12-13] MEDS: BUPIVACAINE 0.5% W/ EPI (PF) 30 ML VIAL INJ (08:54)
--- NOTE | 2024-12-13 09:51 | SUR.OPER ---
IRRIGATION : POVIDONE PLUS HYDROGEN PEROXIDE TO STERILE FIELD
--- NOTE | 2024-12-13 10:41 | P.OP_ITS ---
Operative Date/Time/Diagnoses Date of procedure: 12/13/24 Time of procedure: 07:45 Pre-op diagnosis: Medial compartment right knee osteoarthritis Post-op diagnosis: same Procedure & Clinicians Procedure: Robotic assisted right medial unicompartmental knee arthroplasty ([id number], [id number]) Same procedure(s) as scheduled: Yes Surgeon: Arias Cortés Mobile Home Installer: Joi Torres Anesthesia Type: General and Local Operative Notes Findings: Intact ACL, no large arthritic defects and lateral compartment, mild trochlear cartilage loss without corresponding cartilage loss on the patella, intact MCL and LCL, severe erosive changes in the medial compartment Applied: implant(s) Estimated Blood Loss (mL): 100 Procedure in detail: Robotic assisted right medial unicompartmental knee arthroplasty using the [employer] 2 system Implants: Size 9 Femoral Component Size 9 Tibial Component Size 8 mm Polyethylene Procedure Summary: This 64-year-old male patient had symptoms of arthritis isolated to his medial compartment and radiographs indicating isolated arthritic changes there. My typical practice in situations like his is to get an MRI to evaluate the other portions of the knee for preoperative planning purposes to ensure that we are not ignoring significant degenerative changes in the lateral or patellofemoral compartments however this was denied by his insurance and after a discussion with the patient regarding filing an appeal to complete the MRI versus proceeding with the partial knee that we had anticipated would be confirmed with the MRI findings he wished to proceed with the surgery in order to not delay surgical intervention. Intraoperatively today robotic assistance was used for planning his medial unicompartmental knee arthroplasty. He had measured at 8? on his preoperative long leg standing radiograph but only measured at 3? of varus on the robotic array. I utilized this 3 degree reference to ensure that I was putting him back in a similar amount of varus as he had started. The robotic plan and the final robotic referencing both indicated 3? of varus. He i s a relatively large male and had large components on his plan. We planned for the largest sized tibial component but still had to do some freehand burring to finish out the medial cortex where he had a tibial footprint extending past the area where the robot had referenced his tibial cut. I used a single sided reciprocating saw to cut the tibial eminence. The balancing was all appropriate on the robotic system and was removed for final implantation. After implantation of final components I noted that there was an area where the cement had not completely interdigitated in the very posterior aspect of the posterior condyle of the femur so I mixed up a 2nd batch in order to hand pack that area in ensure that there was circumferential cement contact between the implant and the bone. Cement was removed from the posterior aspect of the femur and the tibia and were closely inspected prior to closure to ensure that there was no remaining cement. With final implants I was able to slide in and out a 2 mm Mary Jo with some interference and had to forcefully insert a 3 mm Mary Jo in order to get that to fit. He grossly appeared to remain in varus alignment and had full flexion and full extension of the knee with appropriate varus and valgus stability. Procedure in Detail: This patient was seen preoperatively and evaluated for knee pain which was refractory to numerous nonoperative treatment modalities. Their pain correlated with radiographic changes demonstrating significant degeneration in the knee joint. The risks and benefits of continued nonoperative management versus operative management were discussed at length and all of the patient?s questions were answered. Additional educational materials providing further details beyond our discussion in clinic were provided via a publicly available patient education video which included the incidence of medical complications associated with total knee arthroplasty, reasons for revision following total knee arthroplasty, and patient satisfaction rates following unicompartmental knee arthroplasty. With this understanding of the risks inherent to the procedure, the patient elected to move forward with operative management. Following preoperative optimization, the patient was scheduled for surgery. The patient was met in the preoperative holding area the day of the procedure and all questions were answered. The patient?s nares were swabbed with betadine in order to decolonize them from MRSA. Informed consent was signed and the left limb was marked with indelible ink. The patient was brought back to the operating room where anesthesia was induced. The patient was transferred to the operating table and all bony prominences were padded. The operative site was prepped and draped in the usual sterile fashion. A second prep stick was utilized following drape placement. The incision was marked corresponding to the medial aspect of the tibial tubercle and the patella. Ioban was wrapped circumferentially around the knee. Prior to incision, tranexamic acid and cefazolin were administered. Templating images were displayed. A timeout procedure was performed verifying the patient?s identity, medical comorbidities, allergies, relevant medications, anesthesia type and the surgical plan. All present were in agreement. The assistance of a physician certified surgical assistant was required for positioning, room setup, soft tissue retraction and wound closure. Without this assistance, the procedure would have been significantly more challenging and time consuming. ? The tourniquet was inflated prior to incision. I made an anterior incision over the knee, dissected through the subcutaneous tissues and identified the lateral border of the VMO. Medial and lateral soft tissue flaps were developed. A mid vastus arthrotomy was performed. ?I released tissue off of the proximal medial tibia. ?I inserted pins for the robotic rays into the femur and tibia. ?I mapped out the distal femur and proximal tibia using the robotic array and mapped out the hip knee ankle axis as well. ?I noted grossly that she had some recoil with knee hyperextension. ?The varus deformity was approximately 3 ? on the robotic array. ?I made a plan which would involve burring of the tibia and femur using the robotic system which would lead to appropriate knee balance once implants were placed. ?After reviewing all parameters on this plan I felt that it was appropriate and proceeded with burring. ?I initially burred the distal femur and the posterior femur followed by the proximal tibia. ?As bone was cleared out posteriorly on both the femoral and tibial side I switched back and forth until the cuts were completed. I used a single-sided reciprocating saw on the intercondylar eminence to create a flush surface to maximize medial-lateral width of the tibial component. I inserted trials. ?I found these had appropriate parameters both with my gross assessment and with the robotic assessment. ?I therefore implanted those components. ? All bony ends were copiously irrigated and dried. ?Cement was introduced. ?The tibial component was inserted and excess cement was removed ensuring no cement had leaked out the back of the knee. ?Cement was then placed on the femur and the femoral component was inserted while maintaining pressure on the anterior tibial base plate to prevent lift-off. ?A polyethylene insert trial was then placed. ?The knee was placed into full extension and allowed to dry. ?Once cement had dried excess cement was removed I noted that there was a small area of the very posterior aspect of the posterior condyle where there was a gap in the cement had not filled in completely so I mixed up a another batch of cement and placed a very small amount into the gap to ensure that there was good contact throughout the full arc of motion, the tourniquet was taken down, and I again trialed with the 2 mm and 3 mm spacer. ?I found that the 8 mm trial polyethylene had the correct gross kinematics on my assessment that I desired and I therefore placed the final polyethylene insert. ?The tissues were briefly soaked in peroxide and Betadine as a dilute mixture and then the knee was copiously irrigated. ?TXA was administered. The arthrotomy was closed with nonabsorbable interrupted suture as well as an absorbale running Vycril suture extending up into the VMO split ensuring that this extended to the top of the arthrotomy. This was backed up with running barbed suture throughout the arthrotomy. A barbed suture was used in the subcutaneous tissues. The skin was closed with 2-0 and 3-0 sutures. Surgical glue was applied and a soft dressing was placed. The sponge, instrument and needle counts were reported as being correct at the end of the case. ?No obvious complications occurred. The patient was transferred from the operating table back to a stretcher. The patient emerged from anesthesia without difficulty and was taken to the PACU in a stable condition. Plan for aftercare: - Weightbearing as tolerated - Mobilization as soon as the patient has recovered from anesthesia - Aspirin 81 twice per day for DVT prophylaxis - Multimodal pain regimen with no IV opioids ordered - Anticipate discharge home later today - Follow up at [facility] in 2 weeks - Detailed postoperative instructions available at [email or web address] Complications: none Post-operative Condition: stable Disposition: same day surgery
[2024-12-13] MEDS: OXYCODONE IR 5 MG TABLET PO (11:42)
--- NOTE | 2024-12-13 14:11 | PT.IIE ---
Current Diagnoses Unilateral primary osteoarthritis, right knee (12/13/24) Surgery Performed Operation Date: 12/13/24 07:45 Actual Procedures p Medial Unicompartmental Knee Arthroplasty - Robot(Right) - Arias Cortés MD Surgical History (Last Reviewed 10/18/24 @ 10:44 by Davin Gonzalez DO) History of back surgery History of orthopedic surgery (06/27/22) History of urologic surgery (08/23/22) Status post hernia repair Medical History (Last Updated 11/02/24 @ 17:32 by Arias Cortés MD) BPH w urinary obs/LUTS Colon polyps Eczema Encounter for well adult exam with abnormal findings History of nephrolithiasis Hydronephrosis of left kidney Hyperlipidemia Hypertension Inflamed sebaceous cyst Left foot pain Left nephrolithiasis Nosebleed Obstruction of left ureteropelvic junction (UPJ) due to stone Primary osteoarthritis of right knee Renal colic on left side Sebaceous cyst Physical Therapy Inpatient Evaluation/Re-Eval M1 PT/OT-IP Prior Functional Status Start: 12/13/24 13:24 Freq: NEEDED Status: Active Protocol: Document 12/13/24 13:20 MB (Rec: 12/13/24 14:11 MB Desktop) Medical Review Prior Functional Status Medical History Yes Reviewed Diet/Fluid Regular Consistency Communication WNLs Mobility and Gait I, 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 PT-IP Current Condition Start: 12/13/24 13:24 Freq: NEEDED Status: Active Protocol: Document 12/13/24 13:20 MB (Rec: 12/13/24 14:11 MB Desktop) Physical Therapy Current Condition Current Condition Evaluation Date 12/13/24 Treatment Diagnosis R TKR M3 PT-IP Subjective Start: 12/13/24 13:24 Freq: NEEDED Status: Active Protocol: Document 12/13/24 13:20 MB (Rec: 12/13/24 14:11 MB Desktop) Subjective Physical Therapy Visit Type Type Initial Evaluation Visit Start Time 13:20 Visit Stop Time 13:58 Number of RABBIT FANCIER Visits 0 Physical Therapy Visit Comments Patient Comments Pt is agreeable to PT. Therapy Pain Assessment Pain When Pain Assessed At Rest Pain Present Pain Present Pain Reported Location Right knee Intensity 4 Scale Used Numeric (0 - 10) M4 PT-IP Mobility and Gait Start: 12/13/24 13:24 Freq: NEEDED Status: Active Protocol: Document 12/13/24 13:20 MB (Rec: 12/13/24 14:11 MB Desktop) PT-Transfer Assessment Sit to and From Stand Sit to and from Standby Assistance Stand Equipment Transfer Assistive Gait Belt,Front Wheeled Walker Device Orthotic/Prosthetic No Devices or Brace: Transfers Transfer Destination Chair Transfer Technique Ambulation Transfer Ability Level of Assist Standby Assistance Comments Mobility Comments Cues to push up from the chair and to reach back for it with left leg touching and easing right leg out Gait Assessment Gait Gait Assistance Standby Assistance Required: Distance (Feet) 50 Able to Maintain Yes Weight Bearing Status During Gait Assistive Devices Assistive Device Gait Belt,Front Wheeled Walker Orthotic/Prosthetic No Devices or Brace: Gait Deviations General Gait Pattern Antalgic,Decreased Stride Length,Decreased Feet Clearance,Step-to Gait Factors Limiting Gait Function Factors Limiting Decreased Strength,Limited Range of Motion,Pain Gait Function Comments Gait Comments Improves with step-through with increased stepping Stair Climbing Assessment Comments Stair Climbing PT demos one step up forward with RW, leading with good Comments foot first (L non-surgical leg) and descending with walker and then right foot first PT-Balance Assessment Sitting Balance and Reactions Static Sitting Normal Balance Ability Dynamic Sitting Normal Balance Ability Standing Balance and Reactions Static Standing Good Balance Ability Dynamic Standing Good Balance Ability Device Used RW M5 PT-IP Objective Assessments Start: 12/13/24 13:24 Freq: NEEDED Status: Active Protocol: Document 12/13/24 13:20 MB (Rec: 12/13/24 14:11 MB Desktop) Orientation Orientation/Cognition Level of Alertness Alert Orientation Name,Birthday Language Function No Deficits Noted Ability Safety Awareness Understands Safety Issues Memory Description No Deficits Noted Gross Range of Motion Upper Extremity ROM Assessment Within Functional Limits Lower Extremity ROM Assessment Right Impaired Impairments Right knee AROM in sitting 10-70 deg Strength Upper Extremity Strength Assessment Within Functional Limits Lower Extremity Strength Assessment Right Impaired Comments Strength Comments MMT deferred right LE Coordination Assessment Gross Coordination Gross Coordination Impaired Sensation Assessment Sensation Gross Sensation WNL Muscle Tone Muscle Tone WNL Yes M6 PT-IP Treatment Start: 12/13/24 13:24 Freq: NEEDED Status: Active Protocol: Document 12/13/24 13:20 MB (Rec: 12/13/24 14:11 MB Desktop) Physical Therapy Treatment Exercises Exercises Ankle Pumps,Gluteal Sets,Quad Sets,Heel Slides,Straight Leg Raises,Short Arc Quads Education Education Provided Weight Bearing Status,Post-Op Packet,Safety Other Treatments Other Treatment Ed pt and in proper use of ice, best ways to get Performed in and OOB, safe transfers, working on step-through gait pattern with RW to improve functional right knee extension and flexion and then progress to rollator and then cane once he can gait without antalgic pattern M7 PT-IP Assessment and Plan Start: 12/13/24 13:24 Freq: NEEDED Status: Active Protocol: Document 12/13/24 13:20 MB (Rec: 12/13/24 14:11 MB Desktop) PT Summary Assessment and Plan Potential Rehabilitation Excellent Potential Status of Condition Evolving at Evaluation Summary Impairments Pain,ROM,Strength,Balance,Coordination,Bed Mobility, Transfers,Gait,Activity Tolerance Assessment Summary Pt is a 64 y/o male who is same-day right TKR. Pt presents with good mobility post-op and he asks good questions. He has OPPT set-up on 12/29/24. Pt presents with some pain right knee and decreased right knee ROM and strength that is expected post-op. No further acute PT needs, will d/c PT. Frequency of Treatment Frequency Of Discharge Treatment Weight Bearing Status Weight Bearing Weight Bear as Tolerated Status Recommendations To Nursing Amount of Assist Standby Assistance Needed Discharge Recommendations PT Discharge Home with Assistance,Outpatient PT Recommendations Transportation Needs Private Vehicle at Discharge - PT assist x1
== END 2024-12-13 14:14 | disposition home or self-care (01) ==
PROVIDERS: Family Provider Family Medicine; PCP Family Medicine; Referring Provider Orthopaedic Surgery Adult Reconstructive Orthopaedic Surgery; Visit Provider Orthopaedic Surgery Adult Reconstructive Orthopaedic Surgery
PROC: (CPT 27446; principal; 2024-12-13 07:45)
DX: M17.11 Unilateral primary osteoarthritis, right knee (principal)
CPT/HCPCS: 27446; S2900; 73560; 97161; 97535; C1776; C1713; J0690; J1100; J1171; J1885; J2250; J2405; J2704; J3010

== ENCOUNTER 2025-03-29 16:15 | Outpatient (RCR) | payer OTHER, SELFPAY ==
--- NOTE | 2024-12-23 12:52 | PT.OIE ---
Current Diagnoses Other chronic pain (12/23/24) Unilateral primary osteoarthritis, right knee (12/23/24) Pain in right knee (12/23/24) Past Medical History (Last Updated 11/02/24 @ 17:32 by Arias Cortés MD) BPH w urinary obs/LUTS Colon polyps Eczema Encounter for well adult exam with abnormal findings History of nephrolithiasis Hydronephrosis of left kidney Hyperlipidemia Hypertension Inflamed sebaceous cyst Left foot pain Left nephrolithiasis Nosebleed Obstruction of left ureteropelvic junction (UPJ) due to stone Primary osteoarthritis of right knee Renal colic on left side Sebaceous cyst Past Surgical History (Last Reviewed 10/18/24 @ 10:44 by Davin Gonzalez DO) History of back surgery History of orthopedic surgery (06/27/22) History of urologic surgery (08/23/22) Status post hernia repair Visit Care Team Role Provider Type Melo Fox MD Family Provider Physician Primary Care Provider Specialty: Family Practice Address: [address] [place] [address] Email: [email or web address] Joi Torres PA-C Attending Provider Advanced Hearing Therapist Referring Provider Specialty: Orthopedics Orthopedic Surgery Address: [address] [place] [address], [id number] Email: [email or web address] Physical Therapy Initial Evaluation PT-OP-A Visit Information Start: 12/23/24 07:56 Freq: Status: Active Protocol: Document 12/23/24 07:57 BL (Rec: 12/23/24 08:09 BL Laptop) Out-Patient Physical Therapy Visit Information Visit Information Visit Type Initial Evaluation Visit Start Time 09:00 Visit Stop Time 09:40 Visit Number (1) 06/11 (PN by 01/23/25) Number of STRATEGIC DEBRIEFING OFFICER Visits 0 Evaluation Information Evaluation Date 12/23/24 Precautions Precautions WBAT to R LE PT-OP-C Subjective Start: 12/23/24 07:56 Freq: Status: Active Protocol: Document 12/23/24 07:57 BL (Rec: 12/23/24 08:09 BL Laptop) OP-PT Subjective Patient Comments Patient Comments pt presents to the clinic this date following R jessica medial knee replacement preformed on 12/13/24. Surgical bandage in place, pt brings in walking pole but does not require its use to ambulate this session. Pt reports since surgery he has been doing well, states pain has been well managed, has been icing consistently and elevating. Has been working on his ROM within a pain free range. Did ride with his yesterday for 5 hrs and felt this was to much as his knee was pretty stiff the next day. 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 Pt rates pain at 2-3/10 on average with 6/10 being the worst it has been over the past week. Patient Reported Improving Progress Patient Questionnaires Lower Extremity Functional Scale LEFS Score 29 function PT-OP-D Balance Start: 12/23/24 07:56 Freq: Status: Active Protocol: Document 12/23/24 07:57 BL (Rec: 12/23/24 08:09 BL Laptop) Balance Tests Single Limb Standing Single Limb- Right 2 Single Limb- Left 15 PT-OP-H Neuro Start: 12/23/24 07:56 Freq: Status: Active Protocol: Document 12/23/24 07:57 BL (Rec: 12/23/24 08:09 BL Laptop) Sensation Evaluation Comments Summary Comments pt denies changes in sensation. Coordination Evaluation Comments Coordination pt denies changes in coordination, however limited due Comments to post op strength/discomfort PT-OP-J Posture/Palpation/Skin Start: 12/23/24 07:56 Freq: Status: Active Protocol: Document 12/23/24 07:57 BL (Rec: 12/23/24 08:09 BL Laptop) Posture Evaluation Comments Posture Comments pt stand with slight bend in R knee, Pt ambulates with slight decreased stance time on R LE. Palpation Assessment Location R knee Palpation Details pt point tender with palpation over proximal quad tendon insertion above patella. PT-OP-K Range of Motion Start: 12/23/24 07:56 Freq: Status: Active Protocol: Document 12/23/24 07:57 BL (Rec: 12/23/24 08:09 BL Laptop) Hip Goniometric Range of Motion Hip right Hip ROM WFL Yes left Hip ROM WFL Yes Knee Goniometric Range of Motion Knee Right Knee ROM WFL No Flexion Active ( 85 degrees) Extension Active ( 5 degrees) Left Knee ROM WFL Yes PT-OP-M Strength Start: 12/23/24 07:56 Freq: Status: Active Protocol: Document 12/23/24 07:57 BL (Rec: 12/23/24 08:09 BL Laptop) Hip Strength Hip Manual Muscle Testing Right Flexion (L2) 4 Good Abduction 4+ Good+ External Rotation 5 Normal Internal Rotation 5 Normal Left Flexion (L2) 5 Normal Abduction 5 Normal External Rotation 5 Normal Internal Rotation 5 Normal Knee Strength Knee Manual Muscle Testing Right Flexion (S2) 4- Good- Extension (L3) 4- Good- Left Flexion (S2) 5 Normal Extension (L3) 5 Normal PT-OP-Q Treatments Start: 12/23/24 07:56 Freq: Status: Active Protocol: Document 12/23/24 07:57 BL (Rec: 12/23/24 08:09 BL Laptop) Therapeutic Exercises Supine Exercises strength Supine Exercise Name Quad sets, SLR ROM Supine Exercise Name heel slides Sitting Exercises ROM Sitting Exercise Heel slides Name PT-OP-T Assessment and Plan Start: 12/23/24 07:56 Freq: Status: Active Protocol: Document 12/23/24 07:57 BL (Rec: 12/23/24 08:09 BL Laptop) Physical Therapy Assessment Rehab Potential Rehabilitation Good Potential Evaluation Complexity Number of Personal 1-2 Factors/ Comorbidities Number of Body 3 Systems Impaired Clinical Evolving Presentation at Evaluation Impairments Impairments Activity Tolerance,Balance,Coordination,Functional Activities,Functional Mobility,Gait,Pain,Posture,ROM, Sensation,Soft Tissue Mobility,Strength,Transfers Goals Three Scrap Charger Goal (LTG) Pt will demo improved R knee extension strength to 4+/5 by DC for improved efficiency with gait. Two Scrap Charger Goal (LTG) Pt will demo 120 deg of active knee flexion to R knee by DC for improved gait mechanics with ADLs. One Short Term Goal (STG pt will be ind with HEP within 2 visits in order to ) progress toward oysterman therapy goals outside of therapy visits. Penitentiary Goal (LTG) Pt will demo improved LEFS score to 65 or better by DC for improved functional mobility. Assessment Summary Assessment pt presents s/p R jessica knee medial arthroplasty. Pt demos decreased A/PROM into flexion and extension as well as decreased strength and stability, pt continues to have moderate pain and deficits in balance. Pt will benefit from skilled Physical Therapy intervention for strength and endurance training in order to improve functional mobility for return to PLOF. Physical Therapy Plan Frequency and Duration Frequency of 2x/Week Treatment Duration of 12 treatment (weeks) Plan of Care Start 12/23/24 Date Plan of Care End 03/17/25 Date Therapeutic Interventions Therapeutic Balance Training,Coordination Training,Gait Training, Interventions Home Exercise Program,Joint Mobilizations,Manual Therapy,Neuromuscular Re-education,Orthotic/Prosthetic Management,Patient/Caregiver Education,Self-Care/Home Management,Sensory Integration,Soft Tissue Mobilization ,Taping,Therapeutic Activities,Therapeutic Exercises Modalities Cold Pack/Ice Massage,Electric Stimulation,Hot Packs, Infrared Therapy,Iontophoresis,Ultrasound Next Visit Focus/Plan Next Note Type Treatment Note Next Visit Plan Advance HEP for AAROM and quad/hamstring strength, hip stability, manual therapy. PT-Therapy Code Fee Billing Start: 12/23/24 07:56 Freq: Status: Active Protocol: Document 12/23/24 07:57 BL (Rec: 12/23/24 08:09 BL Laptop) Physical Therapy Total Visit Minutes 40 PT Charge Codes - Fee KX Modifier Therapy Cap No Exclusion Modifier PT Evaluation/Re-Evaluation Evaluation/Re-eval PT Eval Moderate Complex Charge Therapeutic Exercise (08351) Minutes 10 PT Unit(s) per 15 1 min
--- NOTE | 2024-12-23 12:53 | PT.OPPOC ---
Physical, Occupational & Speech Therapy At [facility] Current Diagnoses Other chronic pain (12/23/24) Unilateral primary osteoarthritis, right knee (12/23/24) Pain in right knee (12/23/24) Visit Care Team Role Provider Type Melo Fox MD Family Provider Physician Primary Care Provider Specialty: Family Practice Address: [address] [place] [address], [id number] Email: [email or web address] Joi Torres PA-C Attending Provider Advanced Glass Cut Off Tender Referring Provider Specialty: Orthopedics Orthopedic Surgery Address: [address] [place] [address], [id number] Email: [email or web address] Plan Of Care PT-OP-T Assessment and Plan Start: 12/23/24 07:56 Freq: Status: Active Protocol: Document 12/23/24 07:57 BL (Rec: 12/23/24 08:09 BL Laptop) Physical Therapy Assessment Rehab Potential Rehabilitation Good Potential Evaluation Complexity Number of Personal 1-2 Factors/ Comorbidities Number of Body 3 Systems Impaired Clinical Evolving Presentation at Evaluation Impairments Impairments Activity Tolerance,Balance,Coordination,Functional Activities,Functional Mobility,Gait,Pain,Posture,ROM, Sensation,Soft Tissue Mobility,Strength,Transfers Goals Three Banana Carrier Goal (LTG) Pt will demo improved R knee extension strength to 4+/5 by DC for improved efficiency with gait. Two Detention Goal (LTG) Pt will demo 120 deg of active knee flexion to R knee by DC for improved gait mechanics with ADLs. One Short Term Goal (STG pt will be ind with HEP within 2 visits in order to ) progress toward sr. manager therapy goals outside of therapy visits. Detention Goal (LTG) Pt will demo improved LEFS score to 65 or better by DC for improved functional mobility. Assessment Summary Assessment pt presents s/p R jessica knee medial arthroplasty. Pt demos decreased A/PROM into flexion and extension as well as decreased strength and stability, pt continues to have moderate pain and deficits in balance. Pt will benefit from skilled Physical Therapy intervention for strength and endurance training in order to improve functional mobility for return to PLOF. Physical Therapy Plan Frequency and Duration Frequency of 2x/Week Treatment Duration of 12 treatment (weeks) Plan of Care Start 12/23/24 Date Plan of Care End 03/17/25 Date Therapeutic Interventions Therapeutic Balance Training,Coordination Training,Gait Training, Interventions Home Exercise Program,Joint Mobilizations,Manual Therapy,Neuromuscular Re-education,Orthotic/Prosthetic Management,Patient/Caregiver Education,Self-Care/Home Management,Sensory Integration,Soft Tissue Mobilization ,Taping,Therapeutic Activities,Therapeutic Exercises Modalities Cold Pack/Ice Massage,Electric Stimulation,Hot Packs, Infrared Therapy,Iontophoresis,Ultrasound Next Visit Focus/Plan Next Note Type Treatment Note Next Visit Plan Advance HEP for AAROM and quad/hamstring strength, hip stability, manual therapy. Plan of Care Dates Plan of Care Start Date 12/23/24 Plan of Care End Date 03/17/25 Electronically Signed by: Foreign Parks, PT 12/23/24 0293 If you are in agreement with this Plan of Care, please return a signed and dated copy. I have reviewed this Plan of Care and certify that the skilled therapy services above are required to meet the patient?s needs. Physician Signature Date Printed Name and Credentials Clinical Instructor Signature Printed Name and Credentials
--- NOTE | 2024-12-29 08:59 | PT.OTN ---
Current Diagnoses Other chronic pain (12/29/24) Unilateral primary osteoarthritis, right knee (12/29/24) Pain in right knee (12/29/24) Physical Therapy Treatment Note PT-OP-A Visit Information Start: 12/23/24 07:56 Freq: Status: Active Protocol: Document 12/29/24 08:18 BL (Rec: 12/29/24 08:59 BL Laptop) Out-Patient Physical Therapy Visit Information Visit Information Visit Type Treatment Note Visit Start Time 08:15 Visit Stop Time 08:55 Visit Number (2) 2/10 (PN by 01/23/25) Number of ACIDIZER Visits 0 PT-OP-C Subjective Start: 12/23/24 07:56 Freq: Status: Active Protocol: Document 12/29/24 08:18 BL (Rec: 12/29/24 08:59 BL Laptop) OP-PT Subjective Patient Comments Patient Comments Pt presents to the clinic this date and reports he is doing well, states he is doing well, reports he walked a mile on Friday and was pretty sore the next day with limited motion. Reports he is doing much better today. PT-OP-D Balance Start: 12/23/24 07:56 Freq: Status: Active Protocol: Document 12/23/24 07:57 BL (Rec: 12/23/24 08:09 BL Laptop) Balance Tests Single Limb Standing Single Limb- Right 2 Single Limb- Left 15 PT-OP-H Neuro Start: 12/23/24 07:56 Freq: Status: Active Protocol: Document 12/23/24 07:57 BL (Rec: 12/23/24 08:09 BL Laptop) Sensation Evaluation Comments Summary Comments pt denies changes in sensation. Coordination Evaluation Comments Coordination pt denies changes in coordination, however limited due Comments to post op strength/discomfort PT-OP-J Posture/Palpation/Skin Start: 12/23/24 07:56 Freq: Status: Active Protocol: Document 12/23/24 07:57 BL (Rec: 12/23/24 08:09 BL Laptop) Posture Evaluation Comments Posture Comments pt stand with slight bend in R knee, Pt ambulates with slight decreased stance time on R LE. Palpation Assessment Location R knee Palpation Details pt point tender with palpation over proximal quad tendon insertion above patella. PT-OP-K Range of Motion Start: 12/23/24 07:56 Freq: Status: Active Protocol: Document 12/23/24 07:57 BL (Rec: 12/23/24 08:09 BL Laptop) Hip Goniometric Range of Motion Hip right Hip ROM WFL Yes left Hip ROM WFL Yes Knee Goniometric Range of Motion Knee Right Knee ROM WFL No Flexion Active ( 85 degrees) Extension Active ( 5 degrees) Left Knee ROM WFL Yes PT-OP-M Strength Start: 12/23/24 07:56 Freq: Status: Active Protocol: Document 12/23/24 07:57 BL (Rec: 12/23/24 08:09 BL Laptop) Hip Strength Hip Manual Muscle Testing Right Flexion (L2) 4 Good Abduction 4+ Good+ External Rotation 5 Normal Internal Rotation 5 Normal Left Flexion (L2) 5 Normal Abduction 5 Normal External Rotation 5 Normal Internal Rotation 5 Normal Knee Strength Knee Manual Muscle Testing Right Flexion (S2) 4- Good- Extension (L3) 4- Good- Left Flexion (S2) 5 Normal Extension (L3) 5 Normal PT-OP-Q Treatments Start: 12/23/24 07:56 Freq: Status: Active Protocol: Document 12/29/24 08:18 BL (Rec: 12/29/24 08:59 BL Laptop) Therapeutic Exercises Supine Exercises strength Supine Exercise Name Quad sets, SLR, Bridges with heel digs ROM Supine Exercise Name heel slides Prone Exercises Hang Prone Exercise Name prone hang, hamsting curls Resistance 0# Comments 15x Sitting Exercises Warm Up Sitting Exercise Nustep for knee AAROM tissue warm up Name Comments 4 min lvl 4 ROM Sitting Exercise Heel slides (reviewed) Name Standing Exercises stretch Standing Exercise gastroc, soleus st Name Comments 3x 30 sec ea PT-OP-T Assessment and Plan Start: 12/23/24 07:56 Freq: Status: Active Protocol: Document 12/29/24 08:18 BL (Rec: 12/29/24 08:59 BL Laptop) Physical Therapy Assessment Goals Three Emergency Room Physician Goal (LTG) Pt will demo improved R knee extension strength to 4+/5 by DC for improved efficiency with gait. Two Emergency Room Physician Goal (LTG) Pt will demo 120 deg of active knee flexion to R knee by DC for improved gait mechanics with ADLs. One Short Term Goal (STG pt will be ind with HEP within 2 visits in order to ) progress toward termite helper therapy goals outside of therapy visits. Emergency Room Physician Goal (LTG) Pt will demo improved LEFS score to 65 or better by DC for improved functional mobility. Assessment Summary Assessment Pt tolerates session well this date, demos 95 deg of AAROM in supine, PT reports discomfort over adductor muscle group with activity. Continue to focus on claudia ROM and quad strengthening. Physical Therapy Plan Frequency and Duration Frequency of 2x/Week Treatment Duration of 12 treatment (weeks) Plan of Care Start 12/23/24 Date Plan of Care End 03/17/25 Date Next Visit Focus/Plan Next Note Type Treatment Note Next Visit Plan Advance HEP for AAROM and quad/hamstring strength, hip stability, manual therapy.
--- NOTE | 2024-12-31 08:14 | PT.OTN ---
Current Diagnoses Other chronic pain (12/31/24) Unilateral primary osteoarthritis, right knee (12/31/24) Pain in right knee (12/31/24) Physical Therapy Treatment Note PT-OP-A Visit Information Start: 12/23/24 07:56 Freq: Status: Active Protocol: Document 12/31/24 07:33 BL (Rec: 12/31/24 08:14 BL Laptop) Out-Patient Physical Therapy Visit Information Visit Information Visit Type Treatment Note Visit Start Time 08:15 Visit Stop Time 08:55 Visit Number (2) 2/10 (PN by 01/23/25) Number of CLINICAL BIOCHEMIST Visits 0 PT-OP-C Subjective Start: 12/23/24 07:56 Freq: Status: Active Protocol: Document 12/31/24 07:33 BL (Rec: 12/31/24 08:14 BL Laptop) OP-PT Subjective Patient Comments Patient Comments Pt presents to the clinic this date and reports he had a follow up with orthopedics yesterday, reports they were pleased with current progress. Pt reports he continues to feel tightness through quad muscles and into adductor group. PT-OP-D Balance Start: 12/23/24 07:56 Freq: Status: Active Protocol: Document 12/23/24 07:57 BL (Rec: 12/23/24 08:09 BL Laptop) Balance Tests Single Limb Standing Single Limb- Right 2 Single Limb- Left 15 PT-OP-H Neuro Start: 12/23/24 07:56 Freq: Status: Active Protocol: Document 12/23/24 07:57 BL (Rec: 12/23/24 08:09 BL Laptop) Sensation Evaluation Comments Summary Comments pt denies changes in sensation. Coordination Evaluation Comments Coordination pt denies changes in coordination, however limited due Comments to post op strength/discomfort PT-OP-J Posture/Palpation/Skin Start: 12/23/24 07:56 Freq: Status: Active Protocol: Document 12/23/24 07:57 BL (Rec: 12/23/24 08:09 BL Laptop) Posture Evaluation Comments Posture Comments pt stand with slight bend in R knee, Pt ambulates with slight decreased stance time on R LE. Palpation Assessment Location R knee Palpation Details pt point tender with palpation over proximal quad tendon insertion above patella. PT-OP-K Range of Motion Start: 12/23/24 07:56 Freq: Status: Active Protocol: Document 12/23/24 07:57 BL (Rec: 12/23/24 08:09 BL Laptop) Hip Goniometric Range of Motion Hip right Hip ROM WFL Yes left Hip ROM WFL Yes Knee Goniometric Range of Motion Knee Right Knee ROM WFL No Flexion Active ( 85 degrees) Extension Active ( 5 degrees) Left Knee ROM WFL Yes PT-OP-M Strength Start: 12/23/24 07:56 Freq: Status: Active Protocol: Document 12/23/24 07:57 BL (Rec: 12/23/24 08:09 BL Laptop) Hip Strength Hip Manual Muscle Testing Right Flexion (L2) 4 Good Abduction 4+ Good+ External Rotation 5 Normal Internal Rotation 5 Normal Left Flexion (L2) 5 Normal Abduction 5 Normal External Rotation 5 Normal Internal Rotation 5 Normal Knee Strength Knee Manual Muscle Testing Right Flexion (S2) 4- Good- Extension (L3) 4- Good- Left Flexion (S2) 5 Normal Extension (L3) 5 Normal PT-OP-Q Treatments Start: 12/23/24 07:56 Freq: Status: Active Protocol: Document 12/31/24 07:33 BL (Rec: 12/31/24 08:14 BL Laptop) Therapeutic Exercises Supine Exercises strength Supine Exercise Name Quad sets, SLR, Bridges with heel digs, SAQ Sitting Exercises Warm Up Sitting Exercise [id number] seat 7, rocking for stretching Name Comments 4 min lvl 0 Standing Exercises strength Standing Exercise stair climbing, sit<>stands with R LE hamsting focus Name stretch Standing Exercise gastroc, soleus st (reviewed), step knee flex stretch Name Comments 3x 30 sec ea Manual Therapy Treatment Soft Tissue Mobilization R knee Comments STM to R adductor group and R TFL muscle group, improved tissue mobility following. PT-OP-T Assessment and Plan Start: 12/23/24 07:56 Freq: Status: Active Protocol: Document 12/31/24 07:33 BL (Rec: 12/31/24 08:14 BL Laptop) Physical Therapy Assessment Goals Three Pool Attendant Goal (LTG) Pt will demo improved R knee extension strength to 4+/5 by DC for improved efficiency with gait. Two Pool Attendant Goal (LTG) Pt will demo 120 deg of active knee flexion to R knee by DC for improved gait mechanics with ADLs. One Short Term Goal (STG pt will be ind with HEP within 2 visits in order to ) progress toward retirement therapy goals outside of therapy visits. Pool Attendant Goal (LTG) Pt will demo improved LEFS score to 65 or better by DC for improved functional mobility. Assessment Summary Assessment Pt tolerates session well this date, demos 100 deg of AAROM on step, PT reports discomfort over adductor muscle group with activity improved following session. Continue to focus on claudia ROM and quad strengthening. Physical Therapy Plan Frequency and Duration Frequency of 2x/Week Treatment Duration of 12 treatment (weeks) Plan of Care Start 12/23/24 Date Plan of Care End 03/17/25 Date Next Visit Focus/Plan Next Note Type Treatment Note Next Visit Plan Advance HEP for AAROM and quad/hamstring strength, hip stability, manual therapy.
--- NOTE | 2025-01-04 08:24 | PT.OTN ---
Current Diagnoses Other chronic pain (01/04/25) Unilateral primary osteoarthritis, right knee (01/04/25) Pain in right knee (01/04/25) Physical Therapy Treatment Note PT-OP-A Visit Information Start: 12/23/24 07:56 Freq: Status: Active Protocol: Document 01/04/25 07:29 AB (Rec: 01/04/25 08:23 AB [id number]) Out-Patient Physical Therapy Visit Information Visit Information Visit Type Treatment Note Visit Start Time 07:32 Visit Stop Time 08:17 Visit Number (3) 3/10 (PN by 01/23/25) Number of ASPHALT SCREED OPERATOR Visits 1 PT-OP-C Subjective Start: 12/23/24 07:56 Freq: Status: Active Protocol: Document 01/04/25 07:29 AB (Rec: 01/04/25 08:23 AB [id number]) OP-PT Subjective Patient Comments Patient Comments Patient reports he is stiff today. Patient reports he went for a 20 minute walk, made sushi and participated in an event at [employer] ( increased standing) AROM R knee lacking 6 deg extension to 99 deg flexion start of session. PT-OP-D Balance Start: 12/23/24 07:56 Freq: Status: Active Protocol: Document 12/23/24 07:57 BL (Rec: 12/23/24 08:09 BL Laptop) Balance Tests Single Limb Standing Single Limb- Right 2 Single Limb- Left 15 PT-OP-H Neuro Start: 12/23/24 07:56 Freq: Status: Active Protocol: Document 12/23/24 07:57 BL (Rec: 12/23/24 08:09 BL Laptop) Sensation Evaluation Comments Summary Comments pt denies changes in sensation. Coordination Evaluation Comments Coordination pt denies changes in coordination, however limited due Comments to post op strength/discomfort PT-OP-J Posture/Palpation/Skin Start: 12/23/24 07:56 Freq: Status: Active Protocol: Document 12/23/24 07:57 BL (Rec: 12/23/24 08:09 BL Laptop) Posture Evaluation Comments Posture Comments pt stand with slight bend in R knee, Pt ambulates with slight decreased stance time on R LE. Palpation Assessment Location R knee Palpation Details pt point tender with palpation over proximal quad tendon insertion above patella. PT-OP-K Range of Motion Start: 12/23/24 07:56 Freq: Status: Active Protocol: Document 12/23/24 07:57 BL (Rec: 12/23/24 08:09 BL Laptop) Hip Goniometric Range of Motion Hip right Hip ROM WFL Yes left Hip ROM WFL Yes Knee Goniometric Range of Motion Knee Right Knee ROM WFL No Flexion Active ( 85 degrees) Extension Active ( 5 degrees) Left Knee ROM WFL Yes PT-OP-M Strength Start: 12/23/24 07:56 Freq: Status: Active Protocol: Document 12/23/24 07:57 BL (Rec: 12/23/24 08:09 BL Laptop) Hip Strength Hip Manual Muscle Testing Right Flexion (L2) 4 Good Abduction 4+ Good+ External Rotation 5 Normal Internal Rotation 5 Normal Left Flexion (L2) 5 Normal Abduction 5 Normal External Rotation 5 Normal Internal Rotation 5 Normal Knee Strength Knee Manual Muscle Testing Right Flexion (S2) 4- Good- Extension (L3) 4- Good- Left Flexion (S2) 5 Normal Extension (L3) 5 Normal PT-OP-Q Treatments Start: 12/23/24 07:56 Freq: Status: Active Protocol: Document 01/04/25 07:29 AB (Rec: 01/04/25 08:23 AB [id number]) Gym Equipment Shuttle Recovery Unilateral Resistance 37# X 3 ( reports easy) 50# teal 15X 2 Reps/Time X 15 x2 each LE bilateral Resistance 75#navy Reps/Time 15 X2 Therapeutic Exercises Supine Exercises strength Supine Exercise Name SLR Reps/Minutes X 10 Comments VC to lock knee straight prior to raising and to relax between each rep ROM Supine Exercise Name 1. knee flexion with feet on ball 2. HS stretch 3. AROM heel slide Side right Reps/Minutes 1.2-3 min 2. 60 sec X 2 3. X 10 Comments verbal cues to keep feet on ball, verba and tactile cues for HS stretc Prone Exercises Hang Prone Exercise Name 1.prone quad set 2. prone knee flexion AROM Resistance knee wrapped in sheet Reps/Minutes X 10 each Comments verbal and visual cues for prone quad set Manual Therapy Treatment Consent Patient gave verbal Yes consent for manual treatment Soft Tissue Mobilization R knee Body Location quad and HS Mobilization Type Cross-Friction,Myofascial Release,Rolling Intensity/Depth Superficial Body Position Hooklying Comments and moderate PT-OP-T Assessment and Plan Start: 12/23/24 07:56 Freq: Status: Active Protocol: Document 01/04/25 07:29 AB (Rec: 01/04/25 08:23 AB [id number]) Physical Therapy Assessment Goals Three Assisted Goal (LTG) Pt will demo improved R knee extension strength to 4+/5 by DC for improved efficiency with gait. Two Assisted Goal (LTG) Pt will demo 120 deg of active knee flexion to R knee by DC for improved gait mechanics with ADLs. One Short Term Goal (STG pt will be ind with HEP within 2 visits in order to ) progress toward terminal press operator therapy goals outside of therapy visits. Website/Blog Editor Goal (LTG) Pt will demo improved LEFS score to 65 or better by DC for improved functional mobility. Assessment Summary Assessment AROM R knee flexion post manual therapy and AROM ex 104 deg flexion. SLS 15+ seconds R LE assessed end of session. 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
--- NOTE | 2025-01-06 08:14 | PT.OTN ---
Current Diagnoses Other chronic pain (01/06/25) Unilateral primary osteoarthritis, right knee (01/06/25) Pain in right knee (01/06/25) Physical Therapy Treatment Note PT OP: Lower Back/Lower Extremity Start: 01/06/25 07:31 Freq: Status: Active Protocol: Document 01/06/25 07:34 BL (Rec: 01/06/25 08:13 BL Laptop) Out-Patient Physical Therapy Visit Information Visit Information Visit Type Treatment Note Visit Start Time 07:30 Visit Stop Time 08:10 Visit Number (4) 4/ (PN by 01/23/25) Number of HOG RINGER Visits 0 OP-PT Subjective Patient Comments Patient Comments Pt presents to the clinic this date and reports he is doing well, states mornings he continues to feel stiff and has been icing a bit less but continues to ice and elevate at night. Therapeutic Exercises Supine Exercises strength Supine Exercise Name SLR Reps/Minutes X 10 Comments VC to lock knee straight prior to raising and to relax between each rep Prone Exercises Hang Prone Exercise Name 1.prone quad set 2. prone knee flexion AROM Resistance 4# Reps/Minutes X 10 each Comments verbal and visual cues for prone quad set Standing Exercises strength 2 Standing Exercise standing terminal extension Name Resistance lvl 5 band Comments 2x 10 w/ 5 sec hold strength Standing Exercise stair climbing, sit<>stands with R LE hamsting focus ( Name reviewed) stretch Standing Exercise gastroc, soleus st (reviewed), step knee flex stretch Name Comments 3x 30 sec ea Manual Therapy Treatment Soft Tissue Mobilization R knee Comments STM to R adductor group and R TFL muscle group, improved tissue mobility following. Patellar mobilizations lateral and inferior. Physical Therapy Assessment Goals Three Infrastructure Software Engineer Goal (LTG) Pt will demo improved R knee extension strength to 4+/5 by DC for improved efficiency with gait. Two Infrastructure Software Engineer Goal (LTG) Pt will demo 120 deg of active knee flexion to R knee by DC for improved gait mechanics with ADLs. One Short Term Goal (STG pt will be ind with HEP within 2 visits in order to ) progress toward long term care pharmacist therapy goals outside of therapy visits. Infrastructure Software Engineer Goal (LTG) Pt will demo improved LEFS score to 65 or better by DC for improved functional mobility. Assessment Summary Assessment Pt tolerates session well demos improved quad control and LE strength. Pt achieves 112 deg AAROM into flexion. Continue to advance strength and functional ROM. Physical Therapy Plan Frequency and Duration Frequency of 2x/Week Treatment Duration of 12 treatment (weeks) Plan of Care Start 12/23/24 Date Plan of Care End 03/17/25 Date Next Visit Focus/Plan Next Note Type Treatment Note Next Visit Plan Advance HEP for AAROM and quad/hamstring strength, hip stability, manual therapy.
--- NOTE | 2025-01-11 09:23 | PT.OTN ---
Current Diagnoses Other chronic pain (01/11/25) Unilateral primary osteoarthritis, right knee (01/11/25) Pain in right knee (01/11/25) Physical Therapy Treatment Note PT OP: Lower Back/Lower Extremity Start: 01/06/25 07:31 Freq: Status: Active Protocol: Document 01/11/25 07:29 AB (Rec: 01/11/25 07:37 AB [id number]) Out-Patient Physical Therapy Visit Information Visit Information Visit Type Treatment Note Visit Note Access Code [email or web address] Visit Start Time 07:32 Visit Stop Time 08:14 Visit Number (5)5/ (PN by 01/23/25) Number of HIGHWAY PAINTER Visits 1 Progress Note Due 01/23/25 OP-PT Subjective Patient Comments Patient Comments Patient reports he had an active weekend, worked at 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 AROM R knee lacking 3 deg ext to 106 deg glexions start of session. Therapeutic Exercises Supine Exercises ROM Supine Exercise Name 1. knee flexion with feet on ball 2. HS stretch Side right Reps/Minutes 1.2-3 min 2. 60 sec X 2 Comments verbal and tactile cues for HS stretc Prone Exercises Hang Prone Exercise Name 1.prone quad set 2. prone knee flexion AROM Reps/Minutes X 10 each Comments verbal and visual cues for prone quad set Sidelying Exercises sidelying hip abduction Sidelying Exercise HEP Name Side right Equipment Used level one band Reps/Minutes X 15 with and without band Comments Verbal cues for trunk position LE position height of lift Standing Exercises strength Standing Exercise step ups( step back) HEP Name Reps/Minutes X 10 X 2 Comments verbal and visual cues stretch Standing Exercise gastroc, soleus HEP Name Comments 60 sec X 1 gastrc 60 sec X 3 soleus, Pt ed to perform pre step ups Manual Therapy Treatment Soft Tissue Mobilization R knee Body Location quad and HS Mobilization Type Cross-Friction,Myofascial Release,Rolling Intensity/Depth Moderate Body Position Hooklying Joint Mobilizations R patella Direction inf, sup, med, lat, CW, CCW Physical Therapy Assessment Goals Three Chcf Goal (LTG) Pt will demo improved R knee extension strength to 4+/5 by DC for improved efficiency with gait. Two Java Systems Analyst Goal (LTG) Pt will demo 120 deg of active knee flexion to R knee by DC for improved gait mechanics with ADLs. One Short Term Goal (STG pt will be ind with HEP within 2 visits in order to ) progress toward senior care therapy goals outside of therapy visits. Java Systems Analyst Goal (LTG) Pt will demo improved LEFS score to 65 or better by DC for improved functional mobility. Assessment Summary Assessment AROM R knee 0 to 114 post manual and exercise end of session. Physical Therapy Plan Frequency and Duration Frequency of 2x/Week Treatment Duration of 12 treatment (weeks) Plan of Care Start 12/23/24 Date Plan of Care End 03/17/25 Date Next Visit Focus/Plan Next Note Type Treatment Note Next Visit Plan Advance HEP for AAROM and quad/hamstring strength, hip stability, manual therapy.
--- NOTE | 2025-01-13 08:11 | PT.OTN ---
Current Diagnoses Other chronic pain (01/13/25) Unilateral primary osteoarthritis, right knee (01/13/25) Pain in right knee (01/13/25) Physical Therapy Treatment Note PT OP: Lower Back/Lower Extremity Start: 01/06/25 07:31 Freq: Status: Active Protocol: Document 01/13/25 07:28 BL (Rec: 01/13/25 08:09 BL Laptop) Out-Patient Physical Therapy Visit Information Visit Information Visit Type Treatment Note Visit Start Time 07:30 Visit Stop Time 08:10 Visit Number (6) 11/09 Number of PANEL FITTER Visits 0 Progress Note Due 01/23/25 OP-PT Subjective Patient Comments Patient Comments Pt presents to the clinic this date and reports he is doing well, has been trying to rest this week after his active weekend. Reports he has been elevating more. States the back of his leg feels tight. Therapeutic Exercises Supine Exercises strength Supine Exercise Name 90/90 roll with bridge Resistance red 55cm Comments 2x 8 ROM Supine Exercise Name 1. knee flexion with feet on ball 2. HS stretch Side right Reps/Minutes 1.2-3 min 2. 60 sec X 2 Comments verbal and tactile cues for HS stretc Prone Exercises Hang Prone Exercise Name 1.prone quad set 2. prone knee flexion AROM Resistance 4# Reps/Minutes X 10 each Comments verbal and visual cues for prone quad set Standing Exercises strength 2 Standing Exercise standing terminal extension with step up Name Resistance lvl 4 band Comments 2x 10 w/ 5 sec hold strength Standing Exercise step ups( step back) HEP Name Reps/Minutes X 10 X 2 Comments verbal and visual cues stretch Standing Exercise gastroc, soleus HEP, knee flexion st at stair. Name Comments 60 sec X 1 gastrc 60 sec X 3 soleus, Pt ed to perform pre step ups Physical Therapy Assessment Goals Three Group Home Goal (LTG) Pt will demo improved R knee extension strength to 4+/5 by DC for improved efficiency with gait. Two Director Oracle Goal (LTG) Pt will demo 120 deg of active knee flexion to R knee by DC for improved gait mechanics with ADLs. One Short Term Goal (STG pt will be ind with HEP within 2 visits in order to ) progress toward jail therapy goals outside of therapy visits. Group Home Goal (LTG) Pt will demo improved LEFS score to 65 or better by DC for improved functional mobility. Assessment Summary Assessment Pt tolerates session well and is able to achieve 116 deg of knee flexion at end of session. Demos full extension of knee. Continue to focus on strength and ROM training to R hip and knee. Physical Therapy Plan Frequency and Duration Frequency of 2x/Week Treatment Duration of 12 treatment (weeks) Plan of Care Start 12/23/24 Date Plan of Care End 03/17/25 Date Next Visit Focus/Plan Next Note Type Treatment Note Next Visit Plan Advance HEP for AAROM and quad/hamstring strength, hip stability, manual therapy.
--- NOTE | 2025-01-18 08:30 | PT.OTN ---
Current Diagnoses Other chronic pain (01/18/25) Unilateral primary osteoarthritis, right knee (01/18/25) Pain in right knee (01/18/25) Physical Therapy Treatment Note PT OP: Lower Back/Lower Extremity Start: 01/06/25 07:31 Freq: Status: Active Protocol: Document 01/18/25 07:28 BL (Rec: 01/18/25 08:29 BL Laptop) Out-Patient Physical Therapy Visit Information Visit Information Visit Type Progress Note Visit Start Time 07:30 Visit Stop Time 08:10 Visit Number (7) 12/09 Number of STAKES PLAYER Visits 0 Progress Note Due 02/17/25 OP-PT Subjective Patient Comments Patient Comments Pt presents to the clinic this date and continues to report improved endurance, up to walking 30 minutes without increased discomfort. Reports he was on his feet for 4 hrs this weekend and tolerated it well. Feels he may be ready to return to work on light duty in a few weeks. Knee Goniometric Range of Motion Knee Right Knee ROM WFL No Flexion Active ( 118 degrees) Extension Active ( 5 degrees) Therapeutic Exercises Prone Exercises Hang Prone Exercise Name 1.prone quad set 2. prone knee flexion AROM Resistance 5# Reps/Minutes X 10 each Comments verbal and visual cues for prone quad set Sitting Exercises Warm Up Sitting Exercise [id number] Name Comments 4 minutes seat 7 Standing Exercises strength 2 Standing Exercise standing terminal extension with step up Name Comments 2x 10 w/ 5 sec hold strength Standing Exercise step ups( step back) HEP, backward lunges Name Reps/Minutes X 10 X 2 Comments verbal and visual cues Manual Therapy Treatment Soft Tissue Mobilization R knee Comments scar massage, patellar mobility with improved knee flexion AROM following. Neuro Re-Education Treatment Balance Activities Dynamic Details shuttle Surface red Comments [place] fwd/lat with static hold and rocking to limits of stability. Cues for R quad control. Physical Therapy Assessment Goals Three Title I Coordinator Goal (LTG) Pt will demo improved R knee extension strength to 4+/5 by DC for improved efficiency with gait. (progressing) 01/18/25: 4/5 this date. Two Title I Coordinator Goal (LTG) Pt will demo 120 deg of active knee flexion to R knee by DC for improved gait mechanics with ADLs. ( progressing) 01/18/25: 118 deg of AROM R knee flexion. One Short Term Goal (STG pt will be ind with HEP within 2 visits in order to ) progress toward rn long term care therapy goals outside of therapy visits. (Goal Met) Intermediate Goal (LTG) Pt will demo improved LEFS score to 65 or better by DC for improved functional mobility. (progressing) 01/18/25 : Pt reports improvement in functional ADLs. Assessment Summary Assessment Pt continues to demo improved functional mobility with strength and AROM. Pt continues to lack several degrees of active flexion. Pt continues to require mild cues for quad control. Continue to focus on R knee quad strength and endurance training to return to PLOF. Physical Therapy Plan Frequency and Duration Frequency of 2x/Week Treatment Duration of 12 treatment (weeks) Plan of Care Start 12/23/24 Date Plan of Care End 03/17/25 Date Next Visit Focus/Plan Next Note Type Treatment Note Next Visit Plan Advance HEP for AAROM and quad/hamstring strength, hip stability, manual therapy.
--- NOTE | 2025-01-25 08:16 | PT.OTN ---
Current Diagnoses Other chronic pain (01/25/25) Unilateral primary osteoarthritis, right knee (01/25/25) Pain in right knee (01/25/25) Physical Therapy Treatment Note PT OP: Lower Back/Lower Extremity Start: 01/06/25 07:31 Freq: Status: Active Protocol: Document 01/25/25 07:31 BL (Rec: 01/25/25 08:16 BL Laptop) Out-Patient Physical Therapy Visit Information Visit Information Visit Type Treatment Note Visit Start Time 07:30 Visit Stop Time 08:10 Visit Number [phone]) [phone] Number of WINDER CONTORT OPERATOR Visits 0 Progress Note Due 02/17/25 OP-PT Subjective Patient Comments Patient Comments Pt presents to the clinic this date and reports he is doing well, states overall the weekend was good, states he was sore after our last session. Therapeutic Exercises Supine Exercises strength Supine Exercise Name 90/90 roll with bridge Resistance red 55cm Comments 2x 8 ROM Supine Exercise Name 1. knee flexion with feet on ball 2. HS stretch Side right Reps/Minutes 1.2-3 min 2. 60 sec X 2 Comments verbal and tactile cues for HS stretc Prone Exercises Hang Prone Exercise Name 1.prone quad set 2. prone knee flexion AROM Resistance 5# Reps/Minutes X 10 each Comments verbal and visual cues for prone quad set Sitting Exercises Warm Up Sitting Exercise CU800 Name Comments 4 minutes seat 7 Standing Exercises strength Standing Exercise step ups( step back) fwd/lat cone tapping on R LE Name Reps/Minutes X 10 X 2 Comments verbal and visual cues Neuro Re-Education Treatment Balance Activities static Details SLS x 30 sec Comments Increased unsteadiness on L LE Dynamic Details shuttle squats Surface red Comments Toelares fwd/lat with static hold and rocking to limits of stability. Cues for R quad control. Physical Therapy Assessment Goals Three [facility] Goal (LTG) Pt will demo improved R knee extension strength to 4+/5 by DC for improved efficiency with gait. (progressing) 01/18/25: 4/5 this date. Two [facility] Goal (LTG) Pt will demo 120 deg of active knee flexion to R knee by DC for improved gait mechanics with ADLs. ( progressing) 01/18/25: 118 deg of AROM R knee flexion. One Short Term Goal (STG pt will be ind with HEP within 2 visits in order to ) progress toward equipment operator intermodal yard therapy goals outside of therapy visits. (Goal Met) [facility] Goal (LTG) Pt will demo improved LEFS score to 65 or better by DC for improved functional mobility. (progressing) 01/18/25 : Pt reports improvement in functional ADLs. Assessment Summary Assessment Pt tolerates session well, able to achieve 120 deg of knee flexion this date along with 0 deg of extension. Pt continues to advance in AROM and activity tolerance. Continues to focus on hip and knee stability and strength on future sessions. Physical Therapy Plan Frequency and Duration Frequency of 2x/Week Treatment Duration of 12 treatment (weeks) Plan of Care Start 12/23/24 Date Plan of Care End 03/17/25 Date Next Visit Focus/Plan Next Note Type Treatment Note Next Visit Plan Advance HEP for AAROM and quad/hamstring strength, hip stability, manual therapy.
--- NOTE | 2025-01-27 08:13 | PT.OTN ---
Current Diagnoses Other chronic pain (01/27/25) Unilateral primary osteoarthritis, right knee (01/27/25) Pain in right knee (01/27/25) Physical Therapy Treatment Note PT OP: Lower Back/Lower Extremity Start: 01/06/25 07:31 Freq: Status: Active Protocol: Document 01/27/25 07:32 BL (Rec: 01/27/25 08:13 BL Laptop) Out-Patient Physical Therapy Visit Information Visit Information Visit Type Treatment Note Visit Start Time 07:30 Visit Stop Time 08:10 Visit Number ([phone] 01/09 Number of BOATBUILDER APPRENTICE WOOD Visits 0 Progress Note Due 02/17/25 OP-PT Subjective Patient Comments Patient Comments Pt presents to the clinic this date and reports follow up with with ortho went well, pt pleased with progress, discussed restrictions and will plan to return to work on feb 07 with 4 hr work days. Therapeutic Exercises Supine Exercises strength Supine Exercise Name 90/90 roll with bridge, side plank 3x 15 sec Resistance red 55cm Comments 2x 8 Prone Exercises Hang Prone Exercise Name prone knee flexion AROM Resistance 5# Reps/Minutes X 10 each Comments verbal and visual cues for prone quad set Sitting Exercises Warm Up Sitting Exercise CU800 Name Resistance lvl 12 Comments 4 minutes seat 7 Standing Exercises strength 2 Standing Exercise fwd/bkwd lunges, Bosu squats Name Comments 2x10 strength Standing Exercise step ups( step back) fwd/lat cone tapping on R LE Name Reps/Minutes X 10 X 2 Comments verbal and visual cues Physical Therapy Assessment Goals Three [facility] Goal (LTG) Pt will demo improved R knee extension strength to 4+/5 by DC for improved efficiency with gait. (progressing) 01/18/25: 4/5 this date. Two Picture Painter Goal (LTG) Pt will demo 120 deg of active knee flexion to R knee by DC for improved gait mechanics with ADLs. ( progressing) 01/18/25: 118 deg of AROM R knee flexion. 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 (Goal Met) [facility] Goal (LTG) Pt will demo improved LEFS score to 65 or better by DC for improved functional mobility. (progressing) 01/18/25 : Pt reports improvement in functional ADLs. Assessment Summary Assessment Pt tolerates session well, advanced LE strength and stability training. Pt continues to advance in AROM and activity tolerance. Physical Therapy Plan Frequency and Duration Frequency of 2x/Week Treatment Duration of 12 treatment (weeks) Plan of Care Start 12/23/24 Date Plan of Care End 03/17/25 Date Next Visit Focus/Plan Next Note Type Treatment Note Next Visit Plan Advance HEP for AAROM and quad/hamstring strength, hip stability, manual therapy.
--- NOTE | 2025-02-01 08:12 | PT.OTN ---
Current Diagnoses Other chronic pain (02/01/25) Unilateral primary osteoarthritis, right knee (02/01/25) Pain in right knee (02/01/25) Physical Therapy Treatment Note PT OP: Lower Back/Lower Extremity Start: 01/06/25 07:31 Freq: Status: Active Protocol: Document 02/01/25 07:29 BL (Rec: 02/01/25 08:12 BL Laptop) Out-Patient Physical Therapy Visit Information Visit Information Visit Type Treatment Note Visit Start Time 07:30 Visit Stop Time 08:10 Visit Number [phone] Number of BOOM CONVEYOR OPERATOR Visits 0 Progress Note Due 02/17/25 OP-PT Subjective Patient Comments Patient Comments Pt presents to the clinic this date and reports he was much more active this weekend and is feeling more stiff but otherwise doing well. Therapeutic Exercises Supine Exercises strength Supine Exercise Name 90/90 roll with bridge, side plank 3x 15 sec Resistance red 55cm Comments 2x 8 ROM Supine Exercise Name 1. knee flexion with feet on ball 2. HS stretch Side right Reps/Minutes 1.2-3 min 2. 60 sec X 2 Comments verbal and tactile cues for HS stretc Prone Exercises Hang Prone Exercise Name prone knee flexion AROM Resistance 10# Reps/Minutes X 10 each Comments verbal and visual cues for prone quad set Sitting Exercises Warm Up Sitting Exercise CU800 Name Resistance lvl 12 Comments 4 minutes seat 7 Standing Exercises strength 2 Standing Exercise fwd/bkwd lunges, crab walks Name Resistance lvl 3 band and ankles Comments 2x10 Neuro Re-Education Treatment Balance Activities Dynamic Details shuttle squats Surface red Comments [place] fwd/lat with static hold and rocking to limits of stability. Cues for R quad control. Physical Therapy Assessment Goals Three Assisted Goal (LTG) Pt will demo improved R knee extension strength to 4+/5 by DC for improved efficiency with gait. (progressing) 01/18/25: 4/5 this date. Two Assisted Goal (LTG) Pt will demo 120 deg of active knee flexion to R knee by DC for improved gait mechanics with ADLs. ( progressing) 01/18/25: 118 deg of AROM R knee flexion. One Short Term Goal (STG pt will be ind with HEP within 2 visits in order to ) progress toward computer terminal operator therapy goals outside of therapy visits. (Goal Met) Harness Inspector Goal (LTG) Pt will demo improved LEFS score to 65 or better by DC for improved functional mobility. (progressing) 01/18/25 : Pt reports improvement in functional ADLs. Assessment Summary Assessment Pt tolerates session well, advanced LE strength and stability training. Pt continues to advance in AROM and activity tolerance. Demos 122 deg of AAROM into flexion. Physical Therapy Plan Frequency and Duration Frequency of 2x/Week Treatment Duration of 12 treatment (weeks) Plan of Care Start 12/23/24 Date Plan of Care End 03/17/25 Date Next Visit Focus/Plan Next Note Type Treatment Note Next Visit Plan Advance HEP for AAROM and quad/hamstring strength, hip stability, manual therapy.
--- NOTE | 2025-02-10 09:25 | PT.OPPN ---
Current Diagnoses Other chronic pain (02/10/25) Unilateral primary osteoarthritis, right knee (02/10/25) Pain in right knee (02/10/25) Physical Therapy Progress Note PT OP: Lower Back/Lower Extremity Start: 01/06/25 07:31 Freq: Status: Active Protocol: Document 02/10/25 08:13 BL (Rec: 02/10/25 09:25 BL Laptop) Out-Patient Physical Therapy Visit Information Visit Information Visit Type Progress Note Visit Start Time 07:30 Visit Stop Time 08:10 Visit Number 10 (06/11 for PN) Number of WATERMELON INSPECTOR Visits 0 Progress Note Due 03/12/25 OP-PT Subjective Patient Comments Patient Comments Pt presents to the clinic this date and reports he is doing well, states he felt a warm feeling in his knee at work yesterday and some more nerve feelings on the outside of his knee. Encourage pt to keep an eye out for this warm feeling. Therapeutic Exercises Supine Exercises hamstring stretch Side right Reps/Minutes 60 sec X 1 Comments Verbal cues strength Supine Exercise Name 90/90 roll with bridge, side plank 3x 15 sec Resistance red 55cm, lvl 3 band Comments 2x 8 Prone Exercises Knee flexion Prone Exercise Name 1. prone knee flexion w/ over pressure HEP2. AROM knee flexion 3. with 10 # Side right Equipment Used HEP Reps/Minutes 1.60 sec X 2 2. AROM knee flex X 10 X 2 3. X10 X2 Comments Verbal cues Standing Exercises strength Standing Exercise step ups( step back) Name Reps/Minutes X 15 Comments post manual and ex on mat with UE use stretch Standing Exercise Dynamic Heel Raises on step Name Comments 2x10 Manual Therapy Treatment Soft Tissue Mobilization R knee Comments Fascial release along with swelling message to medial and lateral thigh down through calf with improved symptoms relief following. Physical Therapy Assessment Goals Three Puppet Maker Goal (LTG) Pt will demo improved R knee extension strength to 4+/5 by DC for improved efficiency with gait. (progressing) 01/18/25: 4/5 this date. 02/10/25: pt demos 4+/5 strength but continues to have mild symptoms of stiffness. Two [facility] Goal (LTG) Pt will demo 120 deg of active knee flexion to R knee by DC for improved gait mechanics with ADLs. (Goal Met) 01/18/25: 118 deg of AROM R knee flexion. 02/10/25: 122 deg AROM One Short Term Goal (STG pt will be ind with HEP within 2 visits in order to ) progress toward [facility] therapy goals outside of therapy visits. (Goal Met) [facility] Goal (LTG) Pt will demo improved LEFS score to 65 or better by DC for improved functional mobility. (progressing) 01/18/25 : Pt reports improvement in functional ADLs. 02/10/25: pt reports improvement in functional ADLs. Assessment Summary Assessment Pt continues to demo improved AROM and strength along with endurance for ADLS. Pt continues to demo mild difficulty with endurance as he transitions back to work. Pt will continue to benefit from skilled Physical Therapy intervention for strength and endurance training to return to PLOF. Physical Therapy Plan Frequency and Duration Frequency of 2x/Week Treatment Duration of 12 treatment (weeks) Plan of Care Start 12/23/24 Date Plan of Care End 03/17/25 Date Next Visit Focus/Plan Next Note Type Treatment Note Next Visit Plan Advance HEP for AAROM and quad/hamstring strength, hip stability, manual therapy.
--- NOTE | 2025-02-18 13:51 | PT.OTN ---
Current Diagnoses Other chronic pain (02/18/25) Unilateral primary osteoarthritis, right knee (02/18/25) Pain in right knee (02/18/25) Physical Therapy Treatment Note PT OP: Lower Back/Lower Extremity Start: 01/06/25 07:31 Freq: Status: Active Protocol: Document 02/18/25 13:03 SP (Rec: 02/18/25 13:53 SP [id number]) Out-Patient Physical Therapy Visit Information Visit Information Visit Type Treatment Note Visit Note STU Martin assisted with manual STMs tool cross friction support while under direct instruction of CAGE MAKER MACHINE Brandie and patient permission Visit Start Time 13:03 Visit Stop Time 13:51 Visit Number 11 (07/12 for PN) Number of CAGE MAKER MACHINE Visits 1 Progress Note Due 03/12/25 Precautions Precautions WBAT to R LE, December 13 medial partial L OP-PT Subjective Patient Comments Patient Comments 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 He feels HS tightness not getting full ext. Dr Cortés increased his work time 5hrs/ wk. Insturcted walk 30-45 min at time. States stiff when wakes up, not doing anything before get out of bed and not much when out on route at work. He feels a general fatigue around R knee and little decreased sensation down R lateral leg, like nerves waking up. Is performing desensitiation with soft items tolerated at this time over distal patellar tendon past 3 days, leg not feeling denum. Therapeutic Exercises Sitting Exercises 4 way ankle Sitting Exercise PF, DF, EV, IV- ADDED TO HEP with HO Name Side right Resistance L3 band at foot seated Reps/Minutes 15-20 Comments Add to HEP, HO provided Standing Exercises Lunges Standing Exercise stationary and walking- verbal review Name Resistance AROM- contact table strength 2 Standing Exercise fwd/bkwd lunges, crab walks Name Resistance lvl 3 band and ankles Reps/Minutes 2x10 Comments verbal review Therapeutic Activity Therapeutic Activity Self R knee Flexion stretch Comments quadruped: noodle behind R knee, instructed sit back on his heels range gentle small slow range R knee quad and or patellar tendon stretch- stated not as effective as when CAGE MAKER MACHINE supported manually and little discomfort pressure front of knees in WB on treatment hi-low table . desensitization Name verbal review Comments Previous CAGE MAKER MACHINE instruction self distal patellar tendon various fabrics gentle light friction over skin to decrease nerve sensitivity, only able to use soft materials at this time. Manual Therapy Treatment Consent Patient gave verbal Yes consent for manual treatment Soft Tissue Mobilization R knee Body Location Patellar tendon, distal quad, distal ITB, superior peroneals Mobilization Type Cross-Friction,Instrument Assisted,Rolling Comments Fascial release improved symptoms relief following. Joint Mobilizations R knee Comments prone anterotibial translation with strap with supported PROM into knee flexion- good feedback distal quad more than patellar tendon stretch to a certain range then knee joint tightness limit. R patella Direction inf, sup, med, lat, CW, CCW Physical Therapy Assessment Goals Three Assisted Goal (LTG) Pt will demo improved R knee extension strength to 4+/5 by DC for improved efficiency with gait. (progressing) 01/18/25: 4/5 this date. 02/10/25: pt demos 4+/5 strength but continues to have mild symptoms of stiffness. Two Unix Manager Goal (LTG) Pt will demo 120 deg of active knee flexion to R knee by DC for improved gait mechanics with ADLs. (Goal Met) 01/18/25: 118 deg of AROM R knee flexion. 02/10/25: 122 deg AROM One Short Term Goal (STG pt will be ind with HEP within 2 visits in order to ) progress toward [facility] therapy goals outside of therapy visits. (Goal Met) Assisted Goal (LTG) Pt will demo improved LEFS score to 65 or better by DC for improved functional mobility. (progressing) 01/18/25 : Pt reports improvement in functional ADLs. 02/10/25: pt reports improvement in functional ADLs. Assessment Summary Assessment Pt reported improved R knee flexion AAROM quad stretch post anterior tibia translation stretch (not remeasured since previous tx). Pt good response to instructed and added to HEP 4 way ankle AROM and muscular strength with benefit of additive circulation that pt reported felt more mobility in peroneals after manual tx. CAGE MAKER MACHINE trialed cupping over patella tendon for myofascial mobility but was challenged getting benefited suction, tried skin rolling and cross friction to patellar tendon which pt found effective and verbalized understanding self performance if needed. Physical Therapy Plan Frequency and Duration Frequency of 2x/Week Treatment Duration of 12 treatment (weeks) Plan of Care Start 12/23/24 Date Plan of Care End 03/17/25 Date Therapeutic Interventions Therapeutic Balance Training,Coordination Training,Gait Training, Interventions Home Exercise Program,Joint Mobilizations,Manual Therapy,Neuromuscular Re-education,Orthotic/Prosthetic Management,Patient/Caregiver Education,Self-Care/Home Management,Sensory Integration,Soft Tissue Mobilization ,Taping,Therapeutic Activities,Therapeutic Exercises Modalities Cold Pack/Ice Massage,Electric Stimulation,Hot Packs, Infrared Therapy,Iontophoresis,Ultrasound Next Visit Focus/Plan Next Note Type Treatment Note Next Visit Plan Advance HEP for AAROM and quad/hamstring strength, hip stability, manual therapy as needed.
--- NOTE | 2025-03-02 09:57 | PT.OTN ---
Current Diagnoses Other chronic pain (03/02/25) Unilateral primary osteoarthritis, right knee (03/02/25) Pain in right knee (03/02/25) Physical Therapy Treatment Note PT OP: Lower Back/Lower Extremity Start: 01/06/25 07:31 Freq: Status: Active Protocol: Document 03/02/25 08:13 AB (Rec: 03/02/25 09:02 AB [id number]) Out-Patient Physical Therapy Visit Information Visit Information Visit Type Treatment Note Visit Note [id number] Visit Start Time 08:16 Visit Stop Time 09:00 Visit Number 12(08/09 for PN) Number of SOCIAL INSURANCE SPECIALIST Visits 2 Progress Note Due 03/12/25 Precautions Precautions WBAT to R LE, December 13 medial partial L OP-PT Subjective Patient Comments Patient Comments Patient reports he is on a restriction at work, started at 4 hours a day with one mile walking, 1 hour of standing then a break, hour of sitting then a break, one mile max walking, now is 5 hours a day. Patient rates pain 1/10 now, post work rates pain 5/10. Patient reports walking 1.2 and 1.7 miles. Patient reports seeing MD on Friday. Pt reports he feels like he is losing extension. AROM lacking 4 deg ext to 120 deg flexion start of session. Gym Equipment Shuttle Recovery bilateral Resistance 75#[employer] Reps/Time 15 X2 Therapeutic Exercises Supine Exercises hamstring stretch Side right Reps/Minutes 60 sec X 2 Comments Verbal cues Sidelying Exercises sidelying hip abduction Sidelying Exercise HEP/clamshell Name Side right Equipment Used level 2 band Reps/Minutes X 15 with and without band Comments Verbal cues for trunk position LE position height of lift Standing Exercises glut med isometric Standing Exercise HEP Name Reps/Minutes one min each LE Comments verbal cues strength Standing Exercise step ups( step back) Name Side right Equipment Used 6 inch step Reps/Minutes X 15 Comments post manual and ex on mat with UE use Manual Therapy Treatment Consent Patient gave verbal Yes consent for manual treatment Soft Tissue Mobilization R knee Body Location HS Mobilization Type Cross-Friction,Instrument Assisted,Rolling Body Position Prone Comments cupping to HS with quad sets Physical Therapy Assessment Goals Three [facility] Goal (LTG) Pt will demo improved R knee extension strength to 4+/5 by DC for improved efficiency with gait. (progressing) 01/18/25: 4/5 this date. 02/10/25: pt demos 4+/5 strength but continues to have mild symptoms of stiffness. Two Disc Pad Grinding Machine Feeder Goal (LTG) Pt will demo 120 deg of active knee flexion to R knee by DC for improved gait mechanics with ADLs. (Goal Met) 01/18/25: 118 deg of AROM R knee flexion. 02/10/25: 122 deg AROM One Short Term Goal (STG pt will be ind with HEP within 2 visits in order to ) progress toward [facility] therapy goals outside of therapy visits. (Goal Met) [facility] Goal (LTG) Pt will demo improved LEFS score to 65 or better by DC for improved functional mobility. (progressing) 01/18/25 : Pt reports improvement in functional ADLs. 02/10/25: pt reports improvement in functional ADLs. Assessment Summary Assessment AROM R knee 0 to 123 deg end of session. Progressed to level 2 band for clamshell. Patient reports pain and tightness is less end of session. Physical Therapy Plan Frequency and Duration Frequency of 2x/Week Treatment Duration of 12 treatment (weeks) Plan of Care Start 12/23/24 Date Plan of Care End 03/17/25 Date Next Visit Focus/Plan Next Note Type Treatment Note Next Visit Plan 2 visits to end of plan Advance HEP for AAROM and quad/hamstring strength, hip stability, manual therapy as needed.
--- NOTE | 2025-03-17 16:12 | PT.OPPOC ---
Physical, Occupational & Speech Therapy At [facility] Current Diagnoses Other chronic pain (03/17/25) Unilateral primary osteoarthritis, right knee (03/17/25) Pain in right knee (03/17/25) Visit Care Team Role Provider Type Melo Fox MD Family Provider Physician Primary Care Provider Specialty: Family Practice Address: [address] [place] [address], [id number] Email: [email or web address] Joi Torres PA-C Attending Provider Advanced Project Archivist Referring Provider Specialty: Orthopedics Orthopedic Surgery Address: [address] [place] [address], [id number] Email: [email or web address] Plan Of Care PT OP: Lower Back/Lower Extremity Start: 01/06/25 07:31 Freq: Status: Active Protocol: Document 03/17/25 09:54 GEOVANNI (Rec: 03/17/25 12:27 GEOVANNI [id number]) Out-Patient Physical Therapy Visit Information Visit Information Visit Type Progress Note Visit Start Time 09:45 Visit Stop Time 10:30 Visit Number 13 Number of ULTRASONIC HAND SOLDERER Visits 0 Progress Note Due 04/16/25 Precautions Precautions WBAT to R LE, December 13 medial partial L OP-PT Subjective Patient Comments Patient Comments Patient reports he is 12 weeks s/p R partial medial knee replacement. 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 He reports he is back to walking one mile per day (8-10 prior to surgery). He reports he still is getting stiffness and swelling in his knee after doing his walking. He reports that he is dealing with some muscle pain in his calf, quad and some in his hamstrings. He reports that he is doing some leg strengthening including calf raises, hip abductor isometrics, lunges (infrequent), and clamshells. Knee Goniometric Range of Motion Knee Measured in Degrees Right Knee ROM WFL No Flexion Active ( 120 degrees) Comments R knee extension PROM: Lack 2 Left Knee ROM WFL Yes Knee Strength Knee Manual Muscle Testing Right Flexion (S2) 4 Good Extension (L3) 4 Good Left Flexion (S2) 5 Normal Extension (L3) 5 Normal Physical Therapy Assessment Goals Walking tolerance Impairment Walking tolerance Short Term Goal (STG Patient will report walking >3 miles with no increase ) in pain levels and no increase in swelling in order to progress towards return to work with no restrictions. STG Duration 3 weeks Solid Waste Truck Driver Goal (LTG) Patient will report walking >5 miles with no increase in pain levels and no increase in swelling in order to progress towards return to work with no restrictions. LTG Duration 6 weeks Three Solid Waste Truck Driver Goal (LTG) Pt will demo improved R knee extension strength to 4+/5 by DC for improved efficiency with gait. (progressing) 01/18/25: 4/5 this date. 02/10/25: pt demos 4+/5 strength but continues to have mild symptoms of stiffness. Two Solid Waste Truck Driver Goal (LTG) Pt will demo 120 deg of active knee flexion to R knee by DC for improved gait mechanics with ADLs. (Goal Met) 01/18/25: 118 deg of AROM R knee flexion. 02/10/25: 122 deg AROM One Short Term Goal (STG pt will be ind with HEP within 2 visits in order to ) progress toward group home therapy goals outside of therapy visits. (Goal Met) Solid Waste Truck Driver Goal (LTG) Pt will demo improved LEFS score to 65 or better by DC for improved functional mobility. (progressing) 01/18/25 : Pt reports improvement in functional ADLs. 02/10/25: pt reports improvement in functional ADLs. Assessment Summary Assessment Patient presenting s/p 12 weeks R partial medial knee replacement. Patient has made improvements in ROM, pain levels, general function, and walking capacity. Objective investigation revealed continued improvements in ROM (see extension, flexion), and strength (see extension MMT), but some continued deficits with ROM ( extension PROM), and strength (extension MMT). Patient will benefit from continued PT focused on ramping quad strengthening and guiding return to walking program. Physical Therapy Plan Frequency and Duration Frequency of 2x/Week Treatment Duration of 12 treatment (weeks) Plan of Care Start 12/23/24 Date Plan of Care End 06/15/25 Date Next Visit Focus/Plan Next Note Type Treatment Note Next Visit Plan Focus on progressive quad loading. Guide and instruct in walking program. Plan of Care Dates Plan of Care Start Date 12/23/24 Plan of Care End Date 06/15/25 Electronically Signed by: Rosalva Lewis, PT 03/17/25 1501 If you are in agreement with this Plan of Care, please return a signed and dated copy. I have reviewed this Plan of Care and certify that the skilled therapy services above are required to meet the patient?s needs. Physician Signature Date Printed Name and Credentials Clinical Instructor Signature Printed Name and Credentials
--- NOTE | 2025-03-24 15:38 | PT.OTN ---
Current Diagnoses Other chronic pain (03/24/25) Unilateral primary osteoarthritis, right knee (03/24/25) Pain in right knee (03/24/25) Physical Therapy Treatment Note PT OP: Lower Back/Lower Extremity Start: 01/06/25 07:31 Freq: Status: Active Protocol: Document 03/24/25 14:44 JZ (Rec: 03/24/25 15:38 JZ [id number]) Out-Patient Physical Therapy Visit Information Visit Information Visit Type Treatment Note Visit Start Time 14:45 Visit Stop Time 15:25 Visit Number 14 Number of SALES MARKETING DIRECTOR Visits 0 Progress Note Due 04/16/25 Precautions Precautions WBAT to R LE, December 13 medial partial L OP-PT Subjective Patient Comments Patient Comments Patient reports his knee has been feeling good. He still notes a little bit of pain in the anterior knee. Therapeutic Exercises Sitting Exercises Knee extension machine Resistance 20# Reps/Minutes 3x10 Standing Exercises Single leg deadlift Reps/Minutes 3x10 Split squats Side right Reps/Minutes 3x10 Single leg calf raises Reps/Minutes 3x10 Comments on slant board (subhash) Lateral tap downs Resistance 10# Reps/Minutes 3x15 Comments UE support for balance Physical Therapy Assessment Goals Walking tolerance Impairment Walking tolerance Short Term Goal (STG Patient will report walking >3 miles with no increase ) in pain levels and no increase in swelling in order to progress towards return to work with no restrictions. STG Duration 3 weeks Longterm Goal (LTG) Patient will report walking >5 miles with no increase in pain levels and no increase in swelling in order to progress towards return to work with no restrictions. LTG Duration 6 weeks Three Concrete Mixer Goal (LTG) Pt will demo improved R knee extension strength to 4+/5 by DC for improved efficiency with gait. (progressing) 01/18/25: 4/5 this date. 02/10/25: pt demos 4+/5 strength but continues to have mild symptoms of stiffness. Two Longterm Goal (LTG) Pt will demo 120 deg of active knee flexion to R knee by DC for improved gait mechanics with ADLs. (Goal Met) 01/18/25: 118 deg of AROM R knee flexion. 02/10/25: 122 deg AROM One Short Term Goal (STG pt will be ind with HEP within 2 visits in order to ) progress toward ferry terminal agent therapy goals outside of therapy visits. (Goal Met) Concrete Mixer Goal (LTG) Pt will demo improved LEFS score to 65 or better by DC for improved functional mobility. (progressing) 01/18/25 : Pt reports improvement in functional ADLs. 02/10/25: pt reports improvement in functional ADLs. Assessment Summary Assessment Treatment focused on quad and gross R LE strengthening. Patient tolerated treatment well with no increases in pain and reported muscular fatigue near end of sets. Plan next session to follow up on walking volume and home program and continue with plan of care. Physical Therapy Plan Frequency and Duration Frequency of 2x/Week Treatment Duration of 12 treatment (weeks) Plan of Care Start 12/23/24 Date Plan of Care End 06/15/25 Date Next Visit Focus/Plan Next Note Type Treatment Note Next Visit Plan Focus on progressive quad loading. Guide and instruct in walking program.
--- NOTE | 2025-03-29 17:56 | PT.OTN ---
Current Diagnoses Other chronic pain (03/29/25) Unilateral primary osteoarthritis, right knee (03/29/25) Pain in right knee (03/29/25) Physical Therapy Treatment Note PT OP: Lower Back/Lower Extremity Start: 01/06/25 07:31 Freq: Status: Active Protocol: Document 03/29/25 16:12 AB (Rec: 03/29/25 17:03 AB [id number]) Out-Patient Physical Therapy Visit Information Visit Information Visit Type Treatment Note Visit Note [id number] Visit Start Time 16:18 Visit Stop Time 17:00 Visit Number 15 Number of FEED IN WORKER Visits 1 Progress Note Due 04/16/25 Precautions Precautions WBAT to R LE, December 13 medial partial L OP-PT Subjective Patient Comments Patient Comments Patient reports he did a lot of strength work last week , comments Rosalva put him through his paces. Patient reports he stopped being sore yesterday. Tin rates pain 1-2/10 reports feeling swollen and hot, but not painful. Patient reports he will be up to 6 hours at work, still limited to a mile of walking at work. Patient reports he walks when out of work. Patient reports he has to take a break after an hour of sitting or standing. Gym Equipment Shuttle Recovery Unilateral Resistance 50# teal 15X 2 Reps/Time X 15 x2 each LE bilateral Resistance 82#navy Reps/Time 15 X2 Therapeutic Exercises Sidelying Exercises sidelying hip abduction Sidelying Exercise HEP/clamshell also performed sidelying hip abduction Name Side right Equipment Used level 2 band Reps/Minutes X 15 with and without band Comments Verbal cues for trunk position LE position height of lift Standing Exercises Single leg deadlift Standing Exercise to chair seat height Name Reps/Minutes X 2 x 10 Comments verbal and visual cues Split squats Standing Exercise near parallel bar Name Side bilateral Equipment Used cushion under retro LE Reps/Minutes 15 each LE Comments reports R knee feels tight with L retro Single leg calf raises Standing Exercise with UE use for balance Name Side bilateral Reps/Minutes X 15 Comments on slant board (subhash) Lateral tap downs Side right Resistance 10# Reps/Minutes X 15 X 2 Comments with UE support glut med isometric Standing Exercise HEP Name Reps/Minutes one min each LE Comments verbal cues Gait Training Gait Activity amb without device Comments Patient ed to perform glute med activation and calf stretches prior to walking. Patient's pace is 106 beats per minute. Patient ambulated 896. 7 feet at 116 BPM. Patient ed to begin at 1/4 mile walking if having no pain post this session and to walk at between 106 to 116 BPM Physical Therapy Assessment Goals Walking tolerance Impairment Walking tolerance Short Term Goal (STG Patient will report walking >3 miles with no increase ) in pain levels and no increase in swelling in order to progress towards return to work with no restrictions. STG Duration 3 weeks Halfway Goal (LTG) Patient will report walking >5 miles with no increase in pain levels and no increase in swelling in order to progress towards return to work with no restrictions. LTG Duration 6 weeks Three Halfway Goal (LTG) Pt will demo improved R knee extension strength to 4+/5 by DC for improved efficiency with gait. (progressing) 01/18/25: 4/5 this date. 02/10/25: pt demos 4+/5 strength but continues to have mild symptoms of stiffness. Two Rugby Union Footballer Goal (LTG) Pt will demo 120 deg of active knee flexion to R knee by DC for improved gait mechanics with ADLs. (Goal Met) 01/18/25: 118 deg of AROM R knee flexion. 02/10/25: 122 deg AROM One Short Term Goal (STG pt will be ind with HEP within 2 visits in order to ) progress toward terminal carman therapy goals outside of therapy visits. (Goal Met) Halfway Goal (LTG) Pt will demo improved LEFS score to 65 or better by DC for improved functional mobility. (progressing) 01/18/25 : Pt reports improvement in functional ADLs. 02/10/25: pt reports improvement in functional ADLs. Assessment Summary Assessment No visible increase in swelling end of session, no complaints of pain with ambulation with metronome. Patient ed to assess pain and swelling post walk to day , and if none inc to 1/4 mile, if there is swelling walk a shorter distance and then continue to increase as able. Physical Therapy Plan Frequency and Duration Frequency of 2x/Week Treatment Duration of 12 treatment (weeks) Plan of Care Start 12/23/24 Date Plan of Care End 06/15/25 Date Next Visit Focus/Plan Next Note Type Treatment Note Next Visit Plan Focus on progressive quad loading. Guide and instruct in walking program.
--- NOTE | 2025-03-29 18:04 | PT.OTN ---
Current Diagnoses Other chronic pain (03/29/25) Unilateral primary osteoarthritis, right knee (03/29/25) Pain in right knee (03/29/25) Physical Therapy Treatment Note PT OP: Lower Back/Lower Extremity Start: 01/06/25 07:31 Freq: Status: Active Protocol: Document 03/29/25 16:12 AB (Rec: 03/29/25 17:03 AB [id number]) Out-Patient Physical Therapy Visit Information Visit Information Visit Type Treatment Note Visit Note [id number] Visit Start Time 16:18 Visit Stop Time 17:00 Visit Number 15 Number of PHOTOSTAT OPERATOR Visits 1 Progress Note Due 04/16/25 Precautions Precautions WBAT to R LE, December 13 medial partial L OP-PT Subjective Patient Comments Patient Comments Patient reports he did a lot of strength work last week , comments Rosalva put him through his paces. Patient reports he stopped being sore yesterday. Tin rates pain 1-2/10 reports feeling swollen and hot, but not painful. Patient reports he will be up to 6 hours at work, still limited to a mile of walking at work. Patient reports he walks when out of work. Patient reports he has to take a break after an hour of sitting or standing. Gym Equipment Shuttle Recovery Unilateral Resistance 50# teal 15X 2 Reps/Time X 15 x2 each LE bilateral Resistance 82#navy Reps/Time 15 X2 Therapeutic Exercises Sidelying Exercises sidelying hip abduction Sidelying Exercise HEP/clamshell also performed sidelying hip abduction Name Side right Equipment Used level 2 band Reps/Minutes X 15 with and without band Comments Verbal cues for trunk position LE position height of lift Standing Exercises Single leg deadlift Standing Exercise to chair seat height Name Reps/Minutes X 2 x 10 Comments verbal and visual cues Split squats Standing Exercise near parallel bar Name Side bilateral Equipment Used cushion under retro LE Reps/Minutes 15 each LE Comments reports R knee feels tight with L retro Single leg calf raises Standing Exercise with UE use for balance Name Side bilateral Reps/Minutes X 15 Comments on slant board (subhash) Lateral tap downs Side right Resistance 10# Reps/Minutes X 15 X 2 Comments with UE support glut med isometric Standing Exercise HEP Name Reps/Minutes one min each LE Comments verbal cues Gait Training Gait Activity amb without device Comments Patient ed to perform glute med activation and calf stretches prior to walking. Patient's pace is 106 beats per minute. Patient ambulated 896. 7 feet at 116 BPM. Patient ed to begin at 1/4 mile walking if having no pain post this session and to walk at between 106 to 116 BPM Physical Therapy Assessment Goals Walking tolerance Impairment Walking tolerance Short Term Goal (STG Patient will report walking >3 miles with no increase ) in pain levels and no increase in swelling in order to progress towards return to work with no restrictions. STG Duration 3 weeks Correction Goal (LTG) Patient will report walking >5 miles with no increase in pain levels and no increase in swelling in order to progress towards return to work with no restrictions. LTG Duration 6 weeks Three Correction Goal (LTG) Pt will demo improved R knee extension strength to 4+/5 by DC for improved efficiency with gait. (progressing) 01/18/25: 4/5 this date. 02/10/25: pt demos 4+/5 strength but continues to have mild symptoms of stiffness. Two Cost Specialist Goal (LTG) Pt will demo 120 deg of active knee flexion to R knee by DC for improved gait mechanics with ADLs. (Goal Met) 01/18/25: 118 deg of AROM R knee flexion. 02/10/25: 122 deg AROM One Short Term Goal (STG pt will be ind with HEP within 2 visits in order to ) progress toward director long term care therapy goals outside of therapy visits. (Goal Met) Correction Goal (LTG) Pt will demo improved LEFS score to 65 or better by DC for improved functional mobility. (progressing) 01/18/25 : Pt reports improvement in functional ADLs. 02/10/25: pt reports improvement in functional ADLs. Assessment Summary Assessment No visible increase in swelling end of session, no complaints of pain with ambulation with metronome. Patient ed to assess pain and swelling post walk to day , and if none inc to 1/4 mile, if there is swelling walk a shorter distance and then continue to increase as able. Physical Therapy Plan Frequency and Duration Frequency of 2x/Week Treatment Duration of 12 treatment (weeks) Plan of Care Start 12/23/24 Date Plan of Care End 06/15/25 Date Next Visit Focus/Plan Next Note Type Treatment Note Next Visit Plan Focus on progressive quad loading. Guide and instruct in walking program.
--- NOTE | 2025-05-19 10:19 | PT.OPDS ---
Current Diagnoses Other chronic pain (03/29/25) Unilateral primary osteoarthritis, right knee (03/29/25) Pain in right knee (03/29/25) Visit Care Team Role Provider Type Melo Fox MD Family Provider Physician Primary Care Provider Specialty: Family Practice Address: [address] [place] [address] Email: [email or web address] Joi Torres PA-C Attending Provider Advanced Precision Mechanical Instrument Maker Referring Provider Specialty: Orthopedics Orthopedic Surgery Address: [address] [place] [address], [facility] Email: [email or web address] Visit Number Visit Number 15 Discharge Summary PT OP: Lower Back/Lower Extremity Start: 01/06/25 07:31 Freq: Status: Active Protocol: Document 05/19/25 10:17 GEOVANNI (Rec: 05/19/25 10:19 GEOVANNI [id number]) Out-Patient Physical Therapy Visit Information Visit Information Visit Type Discharge Summary Physical Therapy Assessment Assessment Summary Assessment Patient has not been seen in over 30 days and is not scheduled for further follow ups at this time. Episode of care will be discharged at this time due to lack of follow up.
== END 2025-05-20 10:10 | disposition home or self-care (01) ==
LOC: PHYS 16:15
PROVIDERS: Family Provider Family Medicine; PCP Family Medicine; Referring Provider Physician Assistant Surgical; Visit Provider Physician Assistant Surgical
DX: M25.561 Pain in right knee (principal); G89.29 Other chronic pain; M17.11 Unilateral primary osteoarthritis, right knee
CPT/HCPCS: 97110; 97112; 97116; 97140; 97162; 97530

== ENCOUNTER → 2025-05-30 16:31 | Outpatient (CLI) | payer OTHER, SELFPAY ==
--- NOTE | 2025-05-30 16:33 | DI.RAD.S_ITS ---
PROCEDURE: XR HAND LT MIN 3V INDICATIONS: left hand and trigger finger TECHNIQUE: 3 views of the hand(s) acquired. COMPARISON: None. FINDINGS: Bones: No fractures or dislocations. Carpal bones are normally aligned. No suspicious bony lesions. Mild degenerative arthrosis of the thumb carpometacarpal joint. Moderate degenerative arthrosis the distal interphalangeal joints of the fingers. Soft tissues: No suspicious soft tissue calcifications. IMPRESSION: No acute bony abnormality. Dictated by: Jose Nolen M.D. on 05/31/2025 at 8:31 Approved by: Jose Nolen M.D. on 05/31/2025 at 8:31
--- NOTE | 2025-05-30 16:33 | DI.RAD.S_ITS ---
PROCEDURE: XR SHOULDER RT MIN 2V INDICATIONS: right shoulder pain TECHNIQUE: 3 views of the shoulder were acquired. COMPARISON: None. FINDINGS: Bones: No fractures or dislocations. No suspicious bony lesions. Visualized ribs appear intact. Soft tissues: No suspicious soft tissue calcifications. IMPRESSION: No acute bony abnormality. Dictated by: Jose Nolen M.D. on 05/31/2025 at 8:30 Approved by: Jose Nolen M.D. on 05/31/2025 at 8:31
== END ==
LOC: RAD 16:32
PROVIDERS: PCP Family Medicine; Referring Provider Family Medicine; Visit Provider Family Medicine
DX: M18.12 Unilateral primary osteoarthritis of first carpometacarpal joint, left hand (principal); M25.511 Pain in right shoulder; M79.642 Pain in left hand; M65.30 Trigger finger, unspecified finger
CPT/HCPCS: 73030; 73130